=== PATIENT | male | born 1955 | race Caucasian/White ===

== ENCOUNTER 2017-12-30 09:04 | Emergency (ER) | payer OTHER ==
--- OUTSIDE RECORDS SUMMARY | 2017-12-30 09:06 | XMS REPORT | Clinical Summary ---
:1955 Author Organization [facility] Address [address] [place] [address] Phone Care Team Providers Name Role Phone Unavailable Primary Care Provider Unavailable Allergies No Known Allergies Current Medications Prescription Sig. Disp. Refills Start Date End Date Status prasugrel (EFFIENT) Take 10 mg by Active 10 mg Tab tablet mouth daily. aspirin 81 MG EC Take 81 mg by Active tablet mouth daily. simvastatin (ZOCOR) Take 40 mg by Active 40 MG tablet mouth nightly. nitroglycerin Place 1 spray Active (NITROLINGUAL) 0.4 under the mg/dose spray tongue every 5 (five) minutes as needed for Chest pain. diclofenac Take 75 mg by 05/02/2017 Active (VOLTAREN) 75 MG EC mouth daily . tablet fluticasone-vilanter Inhale 1 puff Active ol (BREO ELLIPTA) by mouth via 100-25 mcg/dose DsDv inhaler daily. furosemide (LASIX) Take 1 tablet 30 tablet 1 09/02/2017 Active 40 MG tablet (40 mg total) 9 by mouth daily. metoprolol Take 1 tablet 30 tablet 1 09/01/2017 Active (TOPROL-XL) 100 MG (100 mg total) 24 hr tablet by mouth daily. NIFEdipine (ADALAT Take 1 tablet 30 tablet 1 09/02/2017 Active CC) 30 MG 24 hr (30 mg total) tablet by mouth daily. albuterol HFA Inhale 2 puffs 1 Inhaler 0 09/01/2017 Active (VENTOLIN HFA) 90 by mouth via mcg/actuation inhaler every 6 inhaler (six) hours as needed for Wheezing or Shortness of Breath. cyanocobalamin Take 50 mcg by Discontinued (VITAMIN B-12) 50 mouth daily. 8 mcg tablet albuterol, refill, Inhale 1 puff Discontinued 90 mcg/actuation by mouth via 8 Aero inhaler as needed. metoprolol Take 0.5 30 tablet 1 06/12/2014 Discontinued (TOPROL-XL) 100 MG tablets (50 mg 8 24 hr tablet total) by mouth daily. nicotine (NICODERM Place 1 patch 28 patch 0 09/01/2017 CQ) 21 mg/24 hr onto the skin 8 patch daily for 30 days. predniSONE Take 60 mg PO 20 tablet 0 09/01/2017 Discontinued (DELTASONE) 20 MG daily for 3 8 tablet days, then take 40mg PO daily for 3 days, then take 20 mg PO daily for 3 days, then take 10 mg PO daily for 3 day. ipratropium Inhale 2 puffs 1 Inhaler 0 09/01/2017 Discontinued (ATROVENT HFA) 17 by mouth via 8 mcg/actuation inhaler every 6 inhaler (six) hours as needed for Wheezing (shortness of breath). Active Problems Problem Noted Date Peripheral vascular disease, unspecified ([facility]) 10/18/2017 Left leg claudication ([facility]) 10/18/2017 [place] (dyspnea on exertion) 08/29/2017 PVD (peripheral vascular disease) with claudication ([facility]) 06/11/2014 Depressive disorder, not elsewhere classified 06/10/2014 Hemorrhage of gastrointestinal tract, unspecified 06/10/2014 Old myocardial infarction 06/10/2014 Obstructive sleep apnea (adult) (pediatric) 06/10/2014 Right bundle branch block 06/10/2014 Morbid obesity (HCC) 06/10/2014 Essential hypertension 06/10/2014 Other chronic nonalcoholic liver disease 06/10/2014 COPD (chronic obstructive pulmonary disease) ([facility]) 06/10/2014 CAD (coronary artery disease) 05/16/2014 Encounters Date Type Specialty Care Team Description 10/18/2017 - Hospital Encounter Cardiology Slick Brito 10/19/2017 MD Serge 10/18/2017 Procedure Pass 10/18/2017 Surgery Slick Brito PERIPHERAL ANGIOS / MD Serge AORTOGRAM 10/16/2017 Anesthesia Event Maurilio Kinsey MD 09/08/2017 Outside Orders Central Scheduling Brad De Leon MD 08/29/2017 - Hospital Encounter Cardiology TELMA Flores (dyspnea on 09/01/2017 yusuf Echevarria) (Primary MD Dx);COPD exacerbation ([facility]);Right bundle branch block;Morbid obesity ([facility]);Coronary artery disease involving ass[place] si[place] coronary artery of assinibo[place] and sioux heart without angina pectoris;Essential hypertension;PVD (peripheral vascular disease) ([facility]) 08/29/2017 Orders Only General Internal Medicine 07/28/2017 Outside Orders Leroy Bee, GUANAKO (obstructive SENIOR SHAREPOINT DEVELOPER, CHILI MAKER sleep apnea) (Primary Dx) after 12/29/2016 Family History Medical History Relation Name Comments Hypertension Brother Cancer Father prostate Diabetes Father Coronary artery disease Mother Heart disease Mother Hyperlipidemia Mother Hypertension Mother Peripheral vascular disease Mother Stroke Mother Cancer Sister breast Relation Name Status Comments Brother Alive Father Mother Sister Alive Social History Tobacco Use Types Packs/Day Years Used Date Former Smoker Cigarettes 0 40 Smokeless Tobacco: Never Used Comments: quit 4 weeks Alcohol Use Drinks/Week oz/Week Comments No Sex Assigned at Date Recorded Not on file Last Filed Vital Signs Vital Sign Reading Time Taken Blood Pressure 111/63 10/19/2017 7:16 AM CDT Pulse 89 10/19/2017 8:37 AM CDT Temperature 36.5 C (97.7 F) 10/19/2017 7:16 AM CDT Respiratory Rate 12 10/19/2017 8:37 AM CDT Oxygen Saturation 97% 10/19/2017 8:37 AM CDT Inhaled Oxygen Concentration - - Weight 156.9 kg (345 lb 12.8 oz) 10/19/2017 7:16 AM CDT Height 177.8 cm (5' 10") 10/18/2017 10:00 AM CDT Body Mass Index 49.62 10/19/2017 7:16 AM CDT Plan of Treatment Health Maintenance Due Date Last Done Comments INFLUENZA VACCINE 12/05/2017 Implants Implanted Type Area Assistant Controller Device Expiration Date Model / Identifier Serial / Lot Supera Peripheral Stent System NEGRO VASCULAR 09/04/2015 [id number] / Implanted: Qty: 1 on 06/11/2014 DEVICE / [id number] Procedures Procedure Name Priority Date/Time Associated Diagnosis Comments PERIPHERAL ANGIOS / 10/18/2017 2:15 PM PVD (peripheral AORTOGRAM CDT vascular disease) (HCC) Case Notes POP6 BLE PERIPHERAL ANGIOS after 12/29/2016 Results VASCULAR DIAGRAM -SCAN (10/21/2017 2:00 PM)RHYTHM STRIP - SCAN (10/21/2017 2: 00 PM)Only the most recent of2 resultswithin the time period is included.EKG- SCANNED (10/21/2017 2:00 PM)CARDIAC CATH REPORT - SCAN (10/21/2017 2:00 PM) CBC (Hemogram only) (10/19/2017 3:49 AM) Component Value Ref Range WBC 11.7 (H) 3.5 - 10.5 K/L RBC 3.77 (L) 4.63 - 6.08 M/L Hemoglobin 12.7 (L) 13.7 - 17.5 GM/DL Hematocrit 37.2 (L) 40.1 - 51.0 % MCV 98.7 (H) 79.0 - 92.2 fL MCH 33.7 (H) 25.7 - 32.2 pg MCHC 34.1 32.3 - 36.5 GM/DL RDW 16.1 (H) 11.6 - 14.4 % Platelets 190 150 - 450 K/CU MM MPV 10.9 9.4 - 12.4 fL nRBC 0 0 - 0 /100 WBC Specimen Performing Laboratory Blood [address] [address] Basic metabolic panel (10/19/2017 3:49 AM)Only the most recent of5 resultswithin the time period is included. Component Value Ref Range Sodium 137 136 - 145 meq/L Potassium 5.0 3.5 - 5.1 meq/L Chloride 105 98 - 107 meq/L CO2 26 22 - 29 meq/L BUN 11 7 - 21 mg/dL Creatinine 0.73 0.57 - 1.25 mg/dL Glucose 109 (H) 70 - 105 mg/dL Calcium 8.9 8.4 - 10.2 mg/dL EGFR 110Comment: ESTIMATED GFR IS NOT ACCURATE mL/min/1.73 sq m CREATININE CLEARANCE IN PREDICTING GLOMERULAR FILTRATION RATE. ESTIMATED GFR IS NOT APPLICABLE FOR DIALYSIS PATIENTS. Specimen Performing Laboratory Blood [address] [address] POC ACTIVATED CLOTTING TIME (10/18/2017 4:46 PM)Only the most recent of2 resultswithin the time period is included. Component Value Ref Range Activated Clotting Time 153Comment: TESTED AT [facility] [address] [place] [address] sec [id number] Specimen Performing Laboratory Blood [address] [address] ECHOCARDIOGRAM REPORT - SCAN (09/01/2017 8:21 AM)PERIPHERAL VASCULAR REPORT - SCAN (09/01/2017 8:20 AM)Magnesium (09/01/2017 4:31 AM)Only the most recent of4 resultswithin the time period is included. Component Value Ref Range Magnesium 2.4 1.6 - 2.6 mg/dL Specimen Performing Laboratory Blood - Arm, Right [address] [address] Stress Echo With Tracing (08/31/2017 1:16 PM) Component Value Ref Range Ejection Fraction Est EF of >70% Specimen Performing Laboratory SLE ECHO HEARTLAB [facility] CPACS Narrative Stress Echocardiography Report Demographics Patient NameENRIQUE ACEVEDO Date of Study08/31/2017 RHONDA Male Visit [id number] Room Number 1009 Number Date of 1955Referring Mark Colindres Physician Age 62 year(s)Humble Walter RDCS Interpreting Physician BrodieMD FellowMORIS Martinez Procedure Type of Study Stress procedure:STRESS(TMT)ECHO W/TMT TRACING (Routine) Indications:Ischemic heart disease. Clinical History HGB 13.7 HCT 39.0 % CAD, COPD, [place], HLD, HTN, HI, Morbid obesity, PVD, RBBB, SOB, Tobacco abuse, GUANAKO s/p Coronary stent (2005, 2011) Contrast Medium: Definity. Amount - 2 ml Height: 70 inches Weight: 156.04 kg (344 lbs) BSA: 2.63 m^2 BMI: 49.36 kg/m^2 HR: 95 bpm BP: 133/75 mmHg Rest ECG Sinus rhythm. Incomplete RBBB. Standing HR:99 bpmStanding BP:133/75 mmHg Stress Stress Type: Pharmacologic Peak HR: 146 bpmHR Response: Normal Peak BP: 141/47 mmHgBP Response: Normal Predicted HR: 160 bpm HR BP Product: 15942 % of predicted HR: 91 Max Infusion : 20 mcg/kg/min Test Duration: 16:21 min Reason for Termination: Target heart rate Results Global LVEF (rest): Normal (LVEF >50%) Global LVEF (stress): Hyperkinetic (LVEF >70%) ECG No significant ST changes. Arrhythmias No significant rhythm abnormality during stress or recovery. Symptoms No symptoms during stress test. Stress Protocol: Pharmacologic - Dobutamine +--------+------+------+ +------+-----+--------+--+--------+----+----- -+ !Stage # !Time!Dosage!Other !Dosage!Heart!Blood !CP!Pain!Pain!Pain! !!!!Medication!!Rate !Pressure!!Location!Type!Action! +--------+------+------+ +------+-----+--------+--+--------+----+----- -+ !1.0 !3.450 !10.00 !!!121!141/47!!! ! ! +--------+------+------+ +------+-----+--------+--+--------+----+----- -+ !2.0 !3.033 !20.00 !!!146!!! ! !! +--------+------+------+ +------+-----+--------+--+--------+----+----- -+ !Recovery!16.350!0.00!!!98 !132/75!!!!! +--------+------+------+ +------+-----+--------+--+--------+----+----- -+ Summary Indications: Ischemic heart disease symptoms Procedure done: Dobutamine stress echocardiogram. Complications: None Medications: Dobutamine infusion with peak rate of 20 mg/kg/min. ECG: The resting heart rate was 95 bpm. Resting electrocardiogram showed sinus rhythm with incomplete RBBB and no ischemic ECG changes. The heart rate increased to 146 bpm which corresponded to 91% maximum predicted heart rate. There were no ischemic ECG changes noted. There were no arrhythmias noted. The blood pressure at baseline was 133/75 mm Hg and vikram to 141/47 at peak stress. The patient did not develop any significant symptoms. Echocardiogram: Resting echocardiogram showed normal LV systolic function, estimated LVEF of 55%. Normal wall motion. At peak stress, the echocardiogram showed appropriate LV augmentation. Estimated LVEF of >70%. Normal wall motion. Conclusion: Stress was negative for symptoms, ischemic ECG and echocardiogram changes at a diagnostic level of stress. Signature Procedure Note Interface, External Ris In - 08/31/2017 9:37 PM CDT Stress Echocardiography Report Demographics Patient Name ENRIQUE ACEVEDO Date of Study 08/31/2017 RHONDA Gender Male Visit Number [id number] Race Room Number 1009 Number Date of 1955 Referring Mark Colindres Physician Age 62 year(s) Knife Setter Assembler Lashay Walter INESSA Interpreting Kateryna Schaefer, Physician MD Fellow MORIS Martinez Procedure Type of Study Stress procedure:STRESS(TMT)ECHO W/TMT TRACING (Routine) Indications:Ischemic heart disease. Clinical History HGB 13.7 HCT 39.0 % CAD, COPD, [place], HLD, HTN, HI, Morbid obesity, PVD, RBBB, SOB, Tobacco abuse, GUANAKO s/p Coronary stent (2005, 2011) Contrast Medium: Definity. Amount - 2 ml Height: 70 inches Weight: 156.04 kg (344 lbs) BSA: 2.63 m^2 BMI: 49.36 kg/m^2 HR: 95 bpm BP: 133/75 mmHg Rest ECG Sinus rhythm. Incomplete RBBB. Standing HR:99 bpmStanding BP:133/75 mmHg Stress Stress Type: Pharmacologic Peak HR: 146 bpm HR Response: Normal Peak BP: 141/47 mmHg BP Response: Normal Predicted HR: 160 bpm HR BP Product: 66627 % of predicted HR: 91 Max Infusion: 20 mcg/kg/min Test Duration: 16:21 min Reason for Termination: Target heart rate Results Global LVEF (rest): Normal (LVEF >50%) Global LVEF (stress): Hyperkinetic (LVEF >70%) ECG No significant ST changes. Arrhythmias No significant rhythm abnormality during stress or recovery. Symptoms No symptoms during stress test. Stress Protocol: Pharmacologic - Dobutamine +--------+------+------+ +------+-----+--------+--+--------+----+----- -+ !Stage # !Time !Dosage!Other !Dosage!Heart!Blood !CP!Pain !Pain!Pain ! ! ! ! !Medication! !Rate !Pressure! !Location!Type! Action! +--------+------+------+ +------+-----+--------+--+--------+----+----- -+ !1.0 !3.450 !10.00 ! ! !121 !141/47 ! ! ! ! ! +--------+------+------+ +------+-----+--------+--+--------+----+----- -+ !2.0 !3.033 !20.00 ! ! !146 ! ! ! ! ! ! +--------+------+------+ +------+-----+--------+--+--------+----+----- -+ !Recovery!16.350!0.00 ! ! !98 !132/75 ! ! ! ! ! +--------+------+------+ +------+-----+--------+--+--------+----+----- -+ Summary Indications: Ischemic heart disease symptoms Procedure done: Dobutamine stress echocardiogram. Complications: None Medications: Dobutamine infusion with peak rate of 20 mg/kg/min. ECG: The resting heart rate was 95 bpm. Resting electrocardiogram showed sinus rhythm with incomplete RBBB and no ischemic ECG changes. The heart rate increased to 146 bpm which corresponded to 91% maximum predicted heart rate. There were no ischemic ECG changes noted. There were no arrhythmias noted. The blood pressure at baseline was 133/75 mm Hg and vikram to 141/47 at peak stress. The patient did not develop any significant symptoms. Echocardiogram: Resting echocardiogram showed normal LV systolic function, estimated LVEF of 55%. Normal wall motion. At peak stress, the echocardiogram showed appropriate LV augmentation. Estimated LVEF of >70%. Normal wall motion. Conclusion: Stress was negative for symptoms, ischemic ECG and echocardiogram changes at a diagnostic level of stress. Signature 2D Echo W/Doppler(CW/PW/Color) (08/31/2017 12:42 PM) Component Value Ref Range Ejection Fraction Specimen Performing Laboratory [facility] Narrative Transthoracic Echocardiography Report (TTE) Demographics Patient NameENRIQUE ACEVEDO Date of Study08/31/2017 RHONDA Male Visit [id number] Room Number 1009 Number Date of 1955Referring Mark Colindres Physician Age 62 year(s)Humble Walter INESSA Interpreting Physician BrodieMD FellowMORIS Martinez Procedure Type of Study TTE procedure:2DECHO W DOPPLER(CW/PW/COLOR) (Routine) Indications:Shortness of breath. Clinical History HGB 13.7 HCT 39.0 % CAD, COPD, [place], HLD, HTN, HI, Morbid obesity, PVD, RBBB, SOB, Tobacco abuse, GUANAKO s/p Coronary stent (2005, 2011) Contrast Medium: Definity. Amount - 2 ml Height: 70 inches Weight: 156.04 kg (344 lbs) BSA: 2.63 m^2 BMI: 49.36 kg/m^2 HR: 94 bpm BP: 133/75 mmHg Summary 1. Mild concentric LV hypertrophy. All of the LV segments contract normally . 2. LVEF by Her's method of disk assessment is normal (>60%) . 3. Grade 1 diastolic dysfunction (impaired relaxation and low-normal LA pressure). Previous Study No prior exam available for comparison. Signature Findings Technical Quality: Technically difficult exam. Left Ventricle The left ventricle is chamber size (by vol index) is normal (male - LVED vol - 34-74ml/m2). Mild concentric LV hypertrophy. All of the LV segments contract normally . Global LV systolic function normal . LVEF by Her's method of disk assessment is normal (>60%) . Grade 1 diastolic dysfunction (impaired relaxation and low-normal LA pressure). Left AtriumLA size is mildly enlarged (35-41 ml/m2) . Right VentricleThe right ventricular chamber size and systolic function are within normal limits. Right Atrium RA size is normal. Aortic Valve Normal AoV structure and function. Mitral Valve Normal MV structure and function. Tricuspid ValveNo evidence of tricuspid regurgitation. Unable to estimate peak systolic PA pressure; inadequate TR velocity signal. Pulmonic Valve PV is not well visualized; function appears normal by Doppler visualized. AortaAortic root size (SInus of Valsalva diameter) is normal . PericardiumNo significant pericardial effusion is visualized. IVC/SVC/PA/PV/PleuralThe estimated RA pressure by IVC dynamics 5-10mmHg . Chambers/Structures Left Atrium LA Volume: 88.48 ml LA Area: 27.11 cm^ 2 LA Vol. Index: 34 ml/m^2 Left Ventricle LVIDd: 4.47 cm LVIDs: 1.95 cm LV Septum Diastolic: 1.32 cm LV PW Diastolic: 1.25 cmLV FS: 56.4 % LVEDV Her's:104.54 ml LVESV Her's:25.16 mlLVEDVI: 40 ml/ m^2 LVEF Her's: 75.9 %LVESVI: 10 ml/m^2 LVOT Diameter: 2.52 cm Doppler/Quantitative Measurements Mitral Valve MV Peak E-Wave: 1.34 m/sPeak Gradient: 7.18 mmHg MV Sean. Peak: Tissue Doppler E' Lateral Velocity: 0.08 m/s E/E': 17.11 Aortic Valve Peak Velocity: 1.48 m/s Mean Velocity: 1.04 m/s Peak Gradient: 8.81 mmHgMean Gradient: 4.9 mmHg AV Area (continuity): 4.92 cm^2 AV VTI: 32.34 cm AV DVI: 0.99 LVOT Peak Velocity: 1.45 m/s Peak Gradient: 8.4 mmHg Mean Velocity: 0.99 m/s Mean Gradient: 4.51 mmHg LVOT Diameter: 2.52 cmLVOT VTI: 31.95 cm LVOT Area: 4.99 cm^2LVOT SV:159.27 ml LVOT CO: 14.97 l/minLVOT CI: 5.69 l/min/m^2 Procedure Note Interface, External Ris In - 08/31/2017 9:39 PM CDT Transthoracic Echocardiography Report (TTE) Demographics Patient Name ENRIQUE ACEVEDO Date of Study 08/31/2017 RHONDA Gender Male Visit Number [id number] Race Room Number 1009 Number Date of 1955 Referring Mark Colindres Physician Age 62 year(s) Knife Setter Assembler Lashay Walter, JOE Interpreting Kateryna cShaefer, Physician Fellow MORIS Martinez Procedure Type of Study TTE procedure:2DECHO W DOPPLER(CW/PW/COLOR) (Routine) Indications:Shortness of breath. Clinical History HGB 13.7 HCT 39.0 % CAD, COPD, [place], HLD, HTN, HI, Morbid obesity, PVD, RBBB, SOB, Tobacco abuse, GUANAKO s/p Coronary stent (2005, 2011) Contrast Medium: Definity. Amount - 2 ml Height: 70 inches Weight: 156.04 kg (344 lbs) BSA: 2.63 m^2 BMI: 49.36 kg/m^2 HR: 94 bpm BP: 133/75 mmHg Summary 1. Mild concentric LV hypertrophy. All of the LV segments contract normally . 2. LVEF by Her's method of disk assessment is normal (>60%) . 3. Grade 1 diastolic dysfunction (impaired relaxation and low-normal LA pressure). Previous Study No prior exam available for comparison. Signature Findings Technical Quality: Technically difficult exam. Left Ventricle The left ventricle is chamber size (by vol index) is normal (male - LVED vol - 34-74ml/m2). Mild concentric LV hypertrophy. All of the LV segments contract normally . Global LV systolic function normal . LVEF by Her's method of disk assessment is normal (>60%) . Grade 1 diastolic dysfunction (impaired relaxation and low-normal LA pressure). Left Atrium LA size is mildly enlarged (35-41 ml/m2) . Right Ventricle The right ventricular chamber size and systolic function are within normal limits. Right Atrium RA size is normal. Aortic Valve Normal AoV structure and function. Mitral Valve Normal MV structure and function. Tricuspid Valve No evidence of tricuspid regurgitation. Unable to estimate peak systolic PA pressure; inadequate TR velocity signal. Pulmonic Valve PV is not well visualized; function appears normal by Doppler visualized. Aorta Aortic root size (SInus of Valsalva diameter) is normal . Pericardium No significant pericardial effusion is visualized. IVC/SVC/PA/PV/Pleural The estimated RA pressure by IVC dynamics 5-10mmHg . Chambers/Structures Left Atrium LA Volume: 88.48 ml LA Area: 27.11 cm^2 LA Vol. Index: 34 ml/m^2 Left Ventricle LVIDd: 4.47 cm LVIDs: 1.95 cm LV Septum Diastolic: 1.32 cm LV PW Diastolic: 1.25 cm LV FS: 56.4 % LVEDV Her's:104.54 ml LVESV Her's:25.16 ml LVEDVI: 40 ml/m^2 LVEF Her's: 75.9 % LVESVI: 10 ml/m^2 LVOT Diameter: 2.52 cm Doppler/Quantitative Measurements Mitral Valve MV Peak E-Wave: 1.34 m/s Peak Gradient: 7.18 mmHg MV Sean. Peak: Tissue Doppler E' Lateral Velocity: 0.08 m/s E/E': 17.11 Aortic Valve Peak Velocity: 1.48 m/s Mean Velocity: 1.04 m/s Peak Gradient: 8.81 mmHg Mean Gradient: 4.9 mmHg AV Area (continuity): 4.92 cm^2 AV VTI: 32.34 cm AV DVI: 0.99 LVOT Peak Velocity: 1.45 m/s Peak Gradient: 8.4 mmHg Mean Velocity: 0.99 m/s Mean Gradient: 4.51 mmHg LVOT Diameter: 2.52 cm LVOT VTI: 31.95 cm LVOT Area: 4.99 cm^2 LVOT SV:159.27 ml LVOT CO: 14.97 l/min LVOT CI: 5.69 l/min/m^2 CBC with platelet count + automated diff (08/31/2017 4:39 AM)Only the most recent of3 resultswithin the time period is included. Component Value Ref Range WBC 20.5 (H) 3.5 - 10.5 K/L RBC 4.06 (L) 4.63 - 6.08 M/L Hemoglobin 13.7 13.7 - 17.5 GM/DL Hematocrit 39.0 (L) 40.1 - 51.0 % MCV 96.1 (H) 79.0 - 92.2 fL MCH 33.7 (H) 25.7 - 32.2 pg MCHC 35.1 32.3 - 36.5 GM/DL RDW 15.8 (H) 11.6 - 14.4 % Platelets 267 150 - 450 K/CU MM MPV 11.0 9.4 - 12.4 fL nRBC 0 0 - 0 /100 WBC % Neutros 84 % % Lymphs 11 % % Monos 4 % % Eos 0 % % Baso 0 % # Neutros 17.28 (H) 1.78 - 5.38 K/L # Lymphs 2.32 1.32 - 3.57 K/L # Monos 0.71 0.30 - 0.82 K/L # Eos 0.00 (L) 0.04 - 0.54 K/L # Baso 0.03 0.01 - 0.08 K/L Immature Granulocytes-Relative 1 0 - 1 % Specimen Performing Laboratory Blood - Arm, Left [address] [address] CBC with platelet count + automated diff (08/31/2017 4:39 AM)Only the most recent of3 resultswithin the time period is included. Specimen Performing Laboratory Blood Narrative The following orders were created for panel order CBC with platelet count + automated diff. Procedure Abnormality Status --------- ------ CBC with platelet count ...[[id number]]AbnormalFinal result Please view results for these tests on the individual orders. CT brain without IV contrast (08/30/2017 8:58 PM) Specimen Performing Laboratory SocialGO RIS Narrative FINAL REPORT CT head without contrast 08/30/2017 8:59 PM CLINICAL HISTORY: Focal neuro deficit, new, fixed or worsening, >6 hours LEFT FACIAL/HAND NUMBNESS TECHNIQUE: Axial noncontrast CT images through the head were obtained. This examination was performed according to our departmental dose optimization program, which includes automated exposure control, adjustment of the mA and/or kV according to patient size, and/or use of iterated reconstruction technique. COMPARISON: None available FINDINGS: There is no hemorrhage, extra-axial collection, mass, hydrocephalus, or midline shift. There are rare chronic-appearing microvascular changes in the supratentorial white matter. There is atherosclerotic calcification of the intracranial arterial vasculature. There is generalized parenchymal volume loss. The paranasal sinuses and mastoid air cells are well aerated, save for a retention cyst in the right maxillary sinus. The skull is intact. IMPRESSION: No intracranial hemorrhage or mass effect. If concern for acute pathology persists, further evaluation with MRI is recommended. Signed: Morro Clifton MD Report Verified Date/Time:08/30/2017 21:01:19 Reading Location: [facility] Radiology Reading Room Procedure Note Interface, External Ris In - 08/30/2017 9:03 PM CDT FINAL REPORT CT head without contrast 08/30/2017 8:59 PM CLINICAL HISTORY: Focal neuro deficit, new, fixed or worsening, >6 hours LEFT FACIAL/HAND NUMBNESS TECHNIQUE: Axial noncontrast CT images through the head were obtained. This examination was performed according to our departmental dose optimization program, which includes automated exposure control, adjustment of the mA and/or kV according to patient size, and/or use of iterated reconstruction technique. COMPARISON: None available FINDINGS: There is no hemorrhage, extra-axial collection, mass, hydrocephalus, or midline shift. There are rare chronic-appearing microvascular changes in the supratentorial white matter. There is atherosclerotic calcification of the intracranial arterial vasculature. There is generalized parenchymal volume loss. The paranasal sinuses and mastoid air cells are well aerated, save for a retention cyst in the right maxillary sinus. The skull is intact. IMPRESSION: No intracranial hemorrhage or mass effect. If concern for acute pathology persists, further evaluation with MRI is recommended. Signed: Morro Clifton MD Report Verified Date/Time: 08/30/2017 21:01:19 Reading Location: [facility] Radiology Reading Room Hemoglobin A1c (08/30/2017 5:48 AM) Component Value Ref Range Hemoglobin A1C 5.8 4.3 - 6.1 % Specimen Performing Laboratory Blood - Arm, [place] [address] Hepatic function panel (08/30/2017 5:48 AM) Component Value Ref Range Protein, Total 6.8 6.0 - 8.3 gm/dL Albumin 3.9 3.5 - 5.0 g/dL Total Bilirubin 0.4 0.2 - 1.2 mg/dL Bilirubin, Direct 0.2 0.1 - 0.5 mg/dL Alkaline Phosphatase 84 40 - 150 U/L AST 15 5 - 34 U/L ALT 25 6 - 55 U/L Specimen Performing Laboratory Blood - Arm, [address] [address] Lipid panel (08/30/2017 5:48 AM) Component Value Ref Range Triglycerides 64 mg/dL Cholesterol 145 mg/dL HDL 43 mg/dL LDL Calculated 89 mg/dL Specimen Performing Laboratory Blood - Arm, [address] [address] Narrative Triglyceride Reference Range: Low Risk <150 [id number] High Risk 200-499 Very High Risk>=500 Cholesterol Reference Range: Low Risk <200 [id number] High Risk>240 HDL Cholesterol Reference Range: Low Risk >=60 High Risk <40 LDL Cholesterol Reference Range: Optimal<100 Near [id number] [id number] Very High >=190 Troponin I (08/29/2017 11:39 PM)Only the most recent of2 resultswithin the time period is included. Component Value Ref Range Troponin I <0.01 0.00 - 0.03 ng/mL Specimen Performing Laboratory Blood - Arm, [address] [address] Narrative Troponin I (TnI) levels must be interpreted in the context of the presenting symptoms and the clinical findings. Elevated TnI levels indicate myocardial damage, but are not specific for ischemic heart disease. Elevated TnI levels are seen in patients with other cardiac conditions (including myocarditis and congestive heart failure), and slight TnI elevations occur in patients with other conditions, including sepsis, renal failure, acidosis, acute neurological disease, and persistent tachyarrhythmia. ED ECG Interpretation (08/29/2017 10:15 PM) Narrative Pati Granger MD 08/29/2017 10:15 PM ECG/EKG Interpretation Date/Time: 08/29/2017 4:24 PM Performed by: PATI GRANGER. Authorized by: PATI GRANGER The ECG was interpreted by ED physician. This ECG was not compared with previous ECG(s).The ECG is interpreted as sinus rhythm. Rate is normal rate. Abnormal conduction noted: right bundle branch block. ST segments normal. T waves normal. [place] is normal. Other findings: no other findings. Clinical Impression: non-specific ECG and abnormal ECG CT chest with IV contrast (08/29/2017 8:47 PM) Specimen Performing Laboratory GE RIS Narrative FINAL REPORT EXAM: CT of the chest, with contrast, PE protocol CLINICAL HISTORY:left hilar mass, smoker, [place] TECHNIQUE: Chest CT was performed with intravenous contrast utilizing a PE protocol. 2-D and 3-D reformatted images were obtained. This exam was performed according to our departmental dose optimization program which includes automated exposure control, adjustment of the mA and/or kV according to patient's size and/or use of iterative reconstructive technique. COMPARISON:Chest CT 04/15/2011. . FINDINGS: LOWER NECK: Within normal limits. AIRWAYS AND LUNGS: Patent central tracheobronchial tree. Right lower lobe calcified granuloma. Mild bibasilar subsegmental and discoid atelectasis. Elevated right hemidiaphragm. PLEURA: No pleural effusion or pneumothorax. VESSELS: Atheromatous changes of the aorta and branches. No thoracic aortic aneurysm. HEART: Normal heart size. No pericardial effusion. JASON AND MEDIASTINUM: Within normal limits. VISUALIZED UPPER ABDOMEN: Punctate nonobstructing right upper pole renal stone versus vascular calcification. Calcified splenic granulomas. Subcentimeter hypodensity in the hepatic dome too small to characterize. SOFT TISSUES: Within normal limits. BONES: Multilevel degenerative changes of the visualized spine. Healed fracture of the left lateral sixth rib. IMPRESSION: No thoracic mass or lymphadenopathy. Elevated right hemidiaphragm. Mild bibasilar subsegmental and discoid atelectasis. Signed: Demetrio Andrade MD Report Verified Date/Time:08/29/2017 21:13:13 Reading Location: [address] Transitional Reading Room Procedure Note Interface, External Ris In - 08/29/2017 9:15 PM CDT FINAL REPORT EXAM: CT of the chest, with contrast, PE protocol CLINICAL HISTORY: left hilar mass, smoker, [place] TECHNIQUE: Chest CT was performed with intravenous contrast utilizing a PE protocol. 2-D and 3-D reformatted images were obtained. This exam was performed according to our departmental dose optimization program which includes automated exposure control, adjustment of the mA and/or kV according to patient's size and/or use of iterative reconstructive technique. COMPARISON: Chest CT 04/15/2011. . FINDINGS: LOWER NECK: Within normal limits. AIRWAYS AND LUNGS: Patent central tracheobronchial tree. Right lower lobe calcified granuloma. Mild bibasilar subsegmental and discoid atelectasis. Elevated right hemidiaphragm. PLEURA: No pleural effusion or pneumothorax. VESSELS: Atheromatous changes of the aorta and branches. No thoracic aortic aneurysm. HEART: Normal heart size. No pericardial effusion. JASON AND MEDIASTINUM: Within normal limits. VISUALIZED UPPER ABDOMEN: Punctate nonobstructing right upper pole renal stone versus vascular calcification. Calcified splenic granulomas. Subcentimeter hypodensity in the hepatic dome too small to characterize. SOFT TISSUES: Within normal limits. BONES: Multilevel degenerative changes of the visualized spine. Healed fracture of the left lateral sixth rib. IMPRESSION: No thoracic mass or lymphadenopathy. Elevated right hemidiaphragm. Mild bibasilar subsegmental and discoid atelectasis. Signed: Demetrio Andrade MD Report Verified Date/Time: 08/29/2017 21:13:13 Reading Location: [address] Transitional Reading Room /aPTT (08/29/2017 3:12 PM) Component Value Ref Range Protime 14.0 11.7 - 14.7 seconds INR 1.1 <=5.9 PTT 30.4 22.5 - 36.0 seconds Specimen Performing Laboratory Blood - Arm, Right [address] [address] Narrative RECOMMENDED COUMADIN/WARFARIN INR THERAPY RANGES STANDARD DOSE: 2.0 - 3.0 Includes: PROPHYLAXIS for venous thrombosis, systemic embolization; TREATMENT for venous thrombosis and/or pulmonary embolus. HIGH RISK: Target INR is 2.5-3.5 for patients with mechanical heart valves. B-type Natriuretic Factor (BNP) (08/29/2017 3:01 PM) Component Value Ref Range BNP 18 0 - 100 pg/mL Specimen Performing Laboratory Blood [address] [address] Creatine Kinase (CK), Total and MB (not available at [facility] [place]) (2017 3:01 PM) Component Value Ref Range Total CK 72 29 - 200 U/L CK-MB 1.4 0.0 - 6.6 ng/mL MB Relative Index 1.9 % Specimen Performing Laboratory Blood [address] [address] Narrative CK-MB Reference Range: <6.7Normal 6.7-10.0Borderline >10.0 Abnormal Urinalysis w/ Microscopic (08/29/2017 2:56 PM) Component Value Ref Range Color, UA Yellow Clarity, UA Clear Specific [place], UA 1.012 1.001 - 1.035 pH, UA 6.5 5.0 - 8.0 Protein, UA Negative Negative Glucose, UA Negative Negative Ketones, UA Negative Negative Bilirubin, UA Negative Negative Blood, UA Negative Negative Nitrite, UA Negative Negative Leukocytes, UA Negative Negative Urobilinogen, UA 0.2 0.2 - 1.0 mg/dL RBC, UA 1 /HPF WBC, UA <1 /HPF Mucus Rare Specimen Source Urine, Clean Catch Specimen Performing Laboratory Urine - Urine, Clean Catch [address] [address] XR chest 1 view portable / bedside (08/29/2017 2:30 PM) Specimen Performing Laboratory GE RIS Narrative FINAL REPORT INDICATION: SHORTNESS OF BREATH DIZZINESS NUMBNESS COMPARISON: May 09, 2014 TECHNIQUE: Chest radiograph, single view, portable technique. FINDINGS / IMPRESSION: There are diffuse faint interstitial opacities, suspicious for interstitial edema or atypical pneumonia. There is a questionable left hilar mass. Moderate elevation the right hemidiaphragm is unchanged. No pneumothorax. Osseous structures unremarkable. Chest CT with intravenous contrast is recommended for further evaluation of the left hilum. Signed: Adonay Bird MD Report Verified Date/Time:08/29/2017 15:03:26 Reading Location: [facility] Mammo Reading Room Procedure Note Interface, External Ris In - 08/29/2017 3:05 PM CDT FINAL REPORT INDICATION: SHORTNESS OF BREATH DIZZINESS NUMBNESS COMPARISON: May 09, 2014 TECHNIQUE: Chest radiograph, single view, portable technique. FINDINGS / IMPRESSION: There are diffuse faint interstitial opacities, suspicious for interstitial edema or atypical pneumonia. There is a questionable left hilar mass. Moderate elevation the right hemidiaphragm is unchanged. No pneumothorax. Osseous structures unremarkable. Chest CT with intravenous contrast is recommended for further evaluation of the left hilum. Signed: Adonay Bird MD Report Verified Date/Time: 08/29/2017 15:03:26 Reading Location: [facility] Mammo Reading Room 12 lead (08/29/2017 2:18 PM) Specimen Performing Laboratory [employer] [facility] Narrative Ventricular Rate 81 BPM Atrial Rate 81 BPM P-R Interval 170 ms QRS Duration 142 ms Q-T Interval 404 ms QTC Calculation(Bazett) 469 ms P [place] 75 degrees R [place] 105 degrees T [place] 45 degrees Normal sinus rhythm Right bundle branch block Left posterior fascicular block Prolonged QT Abnormal ECG When compared with ECG of 16-MAY-2014 08:39, No significant change was found Confirmed by MD COTA YOCHAI ([id number]) on 08/29/2017 7:52:47 PM Procedure Note Interface, External Ris In - 08/29/2017 7:52 PM CDT Ventricular Rate 81 BPM Atrial Rate 81 BPM P-R Interval 170 ms QRS Duration 142 ms Q-T Interval 404 ms QTC Calculation(Bazett) 469 ms P [place] 75 degrees R [place] 105 degrees T [place] 45 degrees Normal sinus rhythm Right bundle branch block Left posterior fascicular block Prolonged QT Abnormal ECG When compared with ECG of 16-MAY-2014 08:39, No significant change was found Confirmed by MD COTA YOCHAI ([id number]) on 08/29/2017 7:52:47 PM after 12/29/2016
--- OUTSIDE RECORDS SUMMARY | 2017-12-30 09:06 | XMS REPORT | Clinical Summary ---
:1955 Author Organization [facility] Address [address] [place] [address] Care Team Providers Name Role Phone Asked, No Pcp Primary Care Provider Unavailable Allergies Not on File Current Medications Not on file Active Problems Not on file Encounters Date Type Specialty Care Team Description 06/17/2017 Hospital Encounter Radiology Deepak Raza Elevated diaphragm 06/13/2017 Transcribe Orders Access Deepak Raza Elevated diaphragm (Primary Dx) after 12/29/2016 Social History Tobacco Use Types Packs/Day Years Used Date Never Assessed Sex Assigned at Date Recorded Not on file Last Filed Vital Signs Not on file Plan of Treatment Health Maintenance Due Date Last Done Comments COLON CANCER SCREENING 2007 SHINGRIX VACCINE (#1) 2007 ZOSTER VACCINE 2017 INFLUENZA VACCINE 10/05/2017 01/20/2016 Procedures Procedure Name Priority Date/Time Associated Comments Diagnosis [place] FLUOROSCOPY OF Routine 06/17/2017 11:30 Elevated diaphragm Results for this DIAPHRAGM NO FILMS AM CDT procedure are in the results section. after 12/29/2016 Results [place] Fluoroscopy Of Diaphragm No Films (06/17/2017 11:30 AM) Narrative Performed At EXAMINATION:[place] FLUOROSCOPY OF DIAPHRAGM NO FILMS [facility] CLINICAL HISTORY:J98.6 Disorders of diaphragm, Elevated diaphragm COMPARISON:None. TECHNIQUE: Diaphragms were observed under fluoroscopy during quiet and deep breathing and with sniff testing. Fluoroscopic time: 0.4 minutes; number of spot film images: 2 FINDINGS: There was normal motion of the left hemidiaphragm.The right hemidiaphragm showed no movement and some very slight paradoxical movement with sniffing. IMPRESSION: Paralyzed right hemidiaphragm [facility]-[id number] Procedure Note Interface, Radiology Results Incoming - 06/17/2017 11:46 AM CDT EXAMINATION: [place] FLUOROSCOPY OF DIAPHRAGM NO FILMS CLINICAL HISTORY: J98.6 Disorders of diaphragm, Elevated diaphragm COMPARISON: None. TECHNIQUE: Diaphragms were observed under fluoroscopy during quiet and deep breathing and with sniff testing. Fluoroscopic time: 0.4 minutes; number of spot film images: 2 FINDINGS: There was normal motion of the left hemidiaphragm. The right hemidiaphragm showed no movement and some very slight paradoxical movement with sniffing. IMPRESSION: Paralyzed right hemidiaphragm [facility]-[id number] Performing Organization Address City/State/Zipcode Phone Number [facility] [address] [place] [address] after 12/29/2016 Insurance Payer Benefit Plan / Group Subscriber ID Type Phone Address [facility] [id number] IEBP xxxxxxxxxxxx PPO Home: Griselda HART [id number] [phone] [address]
--- OUTSIDE RECORDS SUMMARY | 2017-12-30 09:07 | XMS REPORT ---
:1955 [facility] Address [address] [place] [address] Care Team Providers Name Role Phone ELIE LOW Unavailable Unavailable HORACIO DELCID Unavailable Unavailable Problems This patient has no known problems. Allergies, Adverse Reactions, Alerts This patient has no known allergies or adverse reactions. Medications This patient has no known medications. Results Test Description Test Time Test Comments Text Results Atomic Results Result Comments BASIC METABOLIC PANEL 2017-10-19 05:08:00 Test Item Value Reference Range Comments SODIUM (BEAKER) (test 137 meq/L 136-145 kkle=943) POTASSIUM (BEAKER) (test 5.0 meq/L 3.5-5.1 jcdi=872) CHLORIDE (BEAKER) (test 105 meq/L 98-107 vysx=334) CO2 (BEAKER) (test 26 meq/L 22-29 mqci=874) BLOOD UREA NITROGEN 11 mg/dL 7-21 (BEAKER) (test djok=735) CREATININE (BEAKER) (test 0.73 mg/dL 0.57-1.25 huoo=799) GLUCOSE RANDOM (BEAKER) 109 mg/dL 70-105 (test aogg=009) CALCIUM (BEAKER) (test 8.9 mg/dL 8.4-10.2 kemf=946) EGFR (BEAKER) (test 110 mL/min/1.73 sq m ESTIMATED GFR IS NOT mlrn=1721) ACCURATE CREATININE CLEARANCE IN PREDICTING GLOMERULAR FILTRATION RATE. ESTIMATED GFR IS NOT APPLICABLE FOR DIALYSIS PATIENTS. CBC (HEMOGRAM ONLY)2017-10-19 04:39:00 Test Item Value Reference Range Comments WHITE BLOOD CELL COUNT (BEAKER) (test mnld=809) 11.7 K/ L 3.5-10.5 RED BLOOD CELL COUNT (BEAKER) (test nzxt=918) 3.77 M/ L 4.63-6.08 HEMOGLOBIN (BEAKER) (test xhwd=033) 12.7 GM/DL 13.7-17.5 HEMATOCRIT (BEAKER) (test ytiq=284) 37.2 % 40.1-51.0 MEAN CORPUSCULAR VOLUME (BEAKER) (test khci=806) 98.7 fL 79.0-92.2 MEAN CORPUSCULAR HEMOGLOBIN (BEAKER) (test 33.7 pg 25.7-32.2 fgse=911) MEAN CORPUSCULAR HEMOGLOBIN CONC (BEAKER) (test 34.1 GM/DL 32.3-36.5 rtkv=481) RED CELL DISTRIBUTION WIDTH (BEAKER) (test 16.1 % 11.6-14.4 dlky=367) PLATELET COUNT (BEAKER) (test vdth=430) 190 K/CU MM 150-450 MEAN PLATELET VOLUME (BEAKER) (test ohpl=354) 10.9 fL 9.4-12.4 NUCLEATED RED BLOOD CELLS (BEAKER) (test 0 /100 WBC 0-0 vywm=447) [id number] 17:34:00 Test Item Value Reference Range Comments ACTIVATED CLOTTING TIME 153 sec TESTED AT [facility] [address] [facility] (BEAKER) (test fxhf=255) [place] [address] [id number] 13:16:00 Test Item Value Reference Range Comments ACTIVATED CLOTTING TIME 307 sec TESTED AT [facility] [address] [facility] (BEAKER) (test uwkh=207) [place] [address] [id number] 05:18:00 Test Item Value Reference Range Comments MAGNESIUM (BEAKER) (test bpmi=597) 2.4 mg/dL 1.6-2.6 BASIC METABOLIC [id number] 05:18:00 Test Item Value Reference Range Comments SODIUM (BEAKER) (test 139 meq/L 136-145 vutt=441) POTASSIUM (BEAKER) (test 5.1 meq/L 3.5-5.1 nrec=460) CHLORIDE (BEAKER) (test 103 meq/L 98-107 kntn=438) CO2 (BEAKER) (test 28 meq/L 22-29 nmgg=646) BLOOD UREA NITROGEN 19 mg/dL 7-21 (BEAKER) (test hgfc=642) CREATININE (BEAKER) (test 0.82 mg/dL 0.57-1.25 wuoz=571) GLUCOSE RANDOM (BEAKER) 138 mg/dL 70-105 (test eups=670) CALCIUM (BEAKER) (test 9.6 mg/dL 8.4-10.2 vfhd=145) EGFR (BEAKER) (test 96 mL/min/1.73 sq m ESTIMATED GFR IS NOT pxlz=5890) ACCURATE CREATININE CLEARANCE IN PREDICTING GLOMERULAR FILTRATION RATE. ESTIMATED GFR IS NOT APPLICABLE FOR DIALYSIS PATIENTS. [id number] 05:40:00 Test Item Value Reference Range Comments MAGNESIUM (BEAKER) (test cnbm=866) 2.4 mg/dL 1.6-2.6 BASIC METABOLIC [id number] 05:40:00 Test Item Value Reference Range Comments SODIUM (BEAKER) (test 137 meq/L 136-145 xpuh=718) POTASSIUM (BEAKER) (test 4.7 meq/L 3.5-5.1 neyl=169) CHLORIDE (BEAKER) (test 104 meq/L 98-107 mwdc=722) CO2 (BEAKER) (test 24 meq/L 22-29 vbvy=051) BLOOD UREA NITROGEN 15 mg/dL 7-21 (BEAKER) (test xljr=288) CREATININE (BEAKER) (test 0.79 mg/dL 0.57-1.25 vkak=818) GLUCOSE RANDOM (BEAKER) 154 mg/dL 70-105 (test iffb=553) CALCIUM (BEAKER) (test 9.8 mg/dL 8.4-10.2 gtov=465) EGFR (BEAKER) (test 100 mL/min/1.73 sq m ESTIMATED GFR IS NOT lgik=9460) ACCURATE CREATININE CLEARANCE IN PREDICTING GLOMERULAR FILTRATION RATE. ESTIMATED GFR IS NOT APPLICABLE FOR DIALYSIS PATIENTS. CBC W/PLT COUNT & AUTO [id number] 05:14:00 Test Item Value Reference Range Comments WHITE BLOOD CELL COUNT (BEAKER) (test kxlb=954) 20.5 K/ L 3.5-10.5 RED BLOOD CELL COUNT (BEAKER) (test xmvp=843) 4.06 M/ L 4.63-6.08 HEMOGLOBIN (BEAKER) (test mqhv=539) 13.7 GM/DL 13.7-17.5 HEMATOCRIT (BEAKER) (test ydac=094) 39.0 % 40.1-51.0 MEAN CORPUSCULAR VOLUME (BEAKER) (test rwlg=316) 96.1 fL 79.0-92.2 MEAN CORPUSCULAR HEMOGLOBIN (BEAKER) (test 33.7 pg 25.7-32.2 ohxg=256) MEAN CORPUSCULAR HEMOGLOBIN CONC (BEAKER) (test 35.1 GM/DL 32.3-36.5 wika=307) RED CELL DISTRIBUTION WIDTH (BEAKER) (test 15.8 % 11.6-14.4 putn=374) PLATELET COUNT (BEAKER) (test wwlj=987) 267 K/CU MM 150-450 MEAN PLATELET VOLUME (BEAKER) (test aaha=168) 11.0 fL 9.4-12.4 NUCLEATED RED BLOOD CELLS (BEAKER) (test 0 /100 WBC 0-0 wypa=294) NEUTROPHILS RELATIVE PERCENT (BEAKER) (test 84 % nwhe=124) LYMPHOCYTES RELATIVE PERCENT (BEAKER) (test 11 % ggqi=270) MONOCYTES RELATIVE PERCENT (BEAKER) (test 4 % nvzx=262) EOSINOPHILS RELATIVE PERCENT (BEAKER) (test 0 % ggvo=525) BASOPHILS RELATIVE PERCENT (BEAKER) (test 0 % zljb=001) NEUTROPHILS ABSOLUTE COUNT (BEAKER) (test 17.28 K/ L 1.78-5.38 havw=827) LYMPHOCYTES ABSOLUTE COUNT (BEAKER) (test 2.32 K/ L 1.32-3.57 stce=218) MONOCYTES ABSOLUTE COUNT (BEAKER) (test 0.71 K/ L 0.30-0.82 epzs=869) EOSINOPHILS ABSOLUTE COUNT (BEAKER) (test 0.00 K/ L 0.04-0.54 yuoo=697) BASOPHILS ABSOLUTE COUNT (BEAKER) (test 0.03 K/ L 0.01-0.08 jjeo=687) IMMATURE GRANULOCYTES-RELATIVE PERCENT (BEAKER) 1 % 0-1 (test khki=2022) CT, BRAIN, WITHOUT [id number] 21:01:00FINAL REPORT CT head without contrast 08/30/2017 8:59 PM CLINICAL HISTORY: Focal neuro deficit, new, fixed or worsening, >6 hoursLEFT FACIAL/HAND NUMBNESS TECHNIQUE: Axial noncontrast CT images through the head were obtained. This examination was performed according to our departmental dose optimization program, which includes automated exposure control, adjustment of the mA and/or kV according to patient size, and/or use of iterated reconstruction technique. COMPARISON: None available FINDINGS: There is no hemorrhage, extra-axial collection, mass, hydrocephalus, or midlineshift. There are rare chronic- appearing microvascular changes in the supratentorial white matter. There is atherosclerotic calcification of the intracranial arterial vasculature. There is generalized parenchymal volume loss. The paranasal sinuses and mastoid air cells are well aerated, save for a retention cyst in the right maxillary sinus. The skull is intact. IMPRESSION: No intracranial hemorrhageor mass effect. If concern for acute pathology persists, further evaluation with MRI is recommended.Signed: Morro Jose Verified Date/Time: 08/30/2017 21: 01:19 Reading Location: [facility] Radiology Reading Room HEMOGLOBIN [id number] 15:01:00 Test Item Value Reference Range Comments HEMOGLOBIN A1C (BEAKER) (test xykv=626) 5.8 % 4.3-6.1 CBC W/PLT COUNT & AUTO [id number] 10:55:00 Test Item Value Reference Range Comments WHITE BLOOD CELL COUNT (BEAKER) (test lcly=698) 13.1 K/ L 3.5-10.5 RED BLOOD CELL COUNT (BEAKER) (test mmlk=329) 4.54 M/ L 4.63-6.08 HEMOGLOBIN (BEAKER) (test zwre=143) 13.3 GM/DL 13.7-17.5 HEMATOCRIT (BEAKER) (test jqjr=816) 43.4 % 40.1-51.0 MEAN CORPUSCULAR VOLUME (BEAKER) (test ooon=613) 95.6 fL 79.0-92.2 MEAN CORPUSCULAR HEMOGLOBIN (BEAKER) (test 29.3 pg 25.7-32.2 lkmi=108) MEAN CORPUSCULAR HEMOGLOBIN CONC (BEAKER) (test 30.6 GM/DL 32.3-36.5 uoej=630) RED CELL DISTRIBUTION WIDTH (BEAKER) (test 14.7 % 11.6-14.4 agyz=489) PLATELET COUNT (BEAKER) (test qaag=848) 257 K/CU MM 150-450 MEAN PLATELET VOLUME (BEAKER) (test idpd=883) 10.7 fL 9.4-12.4 NUCLEATED RED BLOOD CELLS (BEAKER) (test 0 /100 WBC 0-0 lvkb=888) NEUTROPHILS RELATIVE PERCENT (BEAKER) (test 86 % eqkb=197) LYMPHOCYTES RELATIVE PERCENT (BEAKER) (test 12 % oozy=885) MONOCYTES RELATIVE PERCENT (BEAKER) (test 2 % izhx=709) EOSINOPHILS RELATIVE PERCENT (BEAKER) (test 0 % ylkr=569) BASOPHILS RELATIVE PERCENT (BEAKER) (test 0 % subk=648) NEUTROPHILS ABSOLUTE COUNT (BEAKER) (test 11.18 K/ L 1.78-5.38 cgut=280) LYMPHOCYTES ABSOLUTE COUNT (BEAKER) (test 1.56 K/ L 1.32-3.57 mkmv=599) MONOCYTES ABSOLUTE COUNT (BEAKER) (test 0.19 K/ L 0.30-0.82 zslr=231) EOSINOPHILS ABSOLUTE COUNT (BEAKER) (test 0.00 K/ L 0.04-0.54 duok=162) BASOPHILS ABSOLUTE COUNT (BEAKER) (test 0.03 K/ L 0.01-0.08 lfde=274) IMMATURE GRANULOCYTES-RELATIVE PERCENT (BEAKER) 1 % 0-1 (test kdsm=1353) [id number] 07:11:00 Test Item Value Reference Range Comments MAGNESIUM (BEAKER) (test qxzn=788) 2.1 mg/dL 1.6-2.6 BASIC METABOLIC [id number] 07:11:00 Test Item Value Reference Range Comments SODIUM (BEAKER) (test 136 meq/L 136-145 aovr=784) POTASSIUM (BEAKER) (test 4.3 meq/L 3.5-5.1 sdvq=807) CHLORIDE (BEAKER) (test 103 meq/L 98-107 hysz=301) CO2 (BEAKER) (test 23 meq/L 22-29 almt=911) BLOOD UREA NITROGEN 13 mg/dL 7-21 (BEAKER) (test ajns=805) CREATININE (BEAKER) (test 0.77 mg/dL 0.57-1.25 lbjm=730) GLUCOSE RANDOM (BEAKER) 180 mg/dL 70-105 (test vpju=096) CALCIUM (BEAKER) (test 9.6 mg/dL 8.4-10.2 xbtf=416) EGFR (BEAKER) (test 103 mL/min/1.73 sq m ESTIMATED GFR IS NOT sfhv=8854) ACCURATE CREATININE CLEARANCE IN PREDICTING GLOMERULAR FILTRATION RATE. ESTIMATED GFR IS NOT APPLICABLE FOR DIALYSIS PATIENTS. LIPID [id number] 07:11:00 Test Item Value Reference Range Comments TRIGLYCERIDES (BEAKER) (test rfuw=755) 64 mg/dL CHOLESTEROL (BEAKER) (test jvvr=753) 145 mg/dL HDL CHOLESTEROL (BEAKER) (test uxpq=749) 43 mg/dL LDL CHOLESTEROL CALCULATED (BEAKER) (test 89 mg/dL wtik=148) Triglyceride Reference Range: Low Risk <150 Borderline 150- 199 High Risk 200-499 Very High Risk >=500Cholesterol Reference Range: Low Risk <200 Borderline 200-239 High Risk > 240HDL Cholesterol Reference Range: Low Risk >=60 High Risk <40LDL Cholesterol Reference Range: Optimal <100 Near Optimal 100-129 Borderline 130-159 High 160-189 Very High >=190HEPATIC FUNCTION [id number] 07:11:00 Test Item Value Reference Range Comments TOTAL PROTEIN (BEAKER) (test prma=007) 6.8 gm/dL 6.0-8.3 ALBUMIN (BEAKER) (test pzgc=9062) 3.9 g/dL 3.5-5.0 BILIRUBIN TOTAL (BEAKER) (test thow=546) 0.4 mg/dL 0.2-1.2 BILIRUBIN DIRECT (BEAKER) (test bkst=115) 0.2 mg/dL 0.1-0.5 ALKALINE PHOSPHATASE (BEAKER) (test buta=712) 84 U/L 40-150 AST (SGOT) (BEAKER) (test bxfn=906) 15 U/L 5-34 ALT (SGPT) (BEAKER) (test bkxf=170) 25 U/L 6-55 TROPONIN [id number] 01:07:00 Test Item Value Reference Range Comments TROPONIN I (BEAKER) (test agoo=983) < ng/mL 0.00-0.03 Troponin I (TnI) levels must be interpreted [...] failure, acidosis, acute neurological disease, and persistent tachyarrhythmia.CT, CHEST, WITH [id number] 21:13 :00FINAL REPORT EXAM: CT of the chest, with contrast, PE protocol CLINICAL HISTORY: left hilar mass, smoker, [place] TECHNIQUE: Chest CT was performed with intravenous contrast utilizing a PE protocol. 2-D and 3-D reformatted images were obtained. This exam was performed according to our departmental dose optimization program which includes automated exposure control , adjustment of the mA and/or kV according to patient's size and/or use of iterative reconstructive technique. COMPARISON: Chest CT 04/15/2011..FINDINGS: LOWER NECK: Within normal limits.AIRWAYS AND LUNGS: Patent central tracheobronchial tree. Right lower lobe calcified granuloma. Mild bibasilar subsegmental and discoid atelectasis. Elevated right hemidiaphragm.PLEURA: No pleural effusion or pneumothorax.VESSELS: Atheromatous changes of the aorta and branches. No thoracic aortic aneurysm.HEART: Normal heart size. Nopericardial effusion.JASON AND MEDIASTINUM: Within normal limits.VISUALIZED UPPER ABDOMEN: Punctate nonobstructing right upper pole renal stone versus vascular calcification. Calcified splenic granulomas. Subcentimeter hypodensity in the hepatic dome too small to characterize.SOFT TISSUES: Within normal limits.BONES : Multilevel degenerative changes of the visualized spine. Healed fracture of the left lateral sixth rib. IMPRESSION:No thoracic mass or lymphadenopathy.Elevated right hemidiaphragm. Mild bibasilar subsegmental and discoid atelectasis. Signed: Cesia Andrade MDReport Verified Date/Time: 2017 21:13:13 Reading Location: [address] Reading Room URINALYSIS W/ [id number] 15:40:00 Test Item Value Reference Range Comments COLOR (BEAKER) (test bawf=297) Yellow CLARITY (BEAKER) (test ombf=493) Clear SPECIFIC GRAVITY UA (BEAKER) (test 1.012 1.001-1.035 dflm=978) PH UA (BEAKER) (test nqzd=950) 6.5 5.0-8.0 PROTEIN UA (BEAKER) (test zcmo=159) Negative Negative GLUCOSE UA (BEAKER) (test yeyb=404) Negative Negative KETONES UA (BEAKER) (test uvbr=749) Negative Negative BILIRUBIN UA (BEAKER) (test thtm=003) Negative Negative BLOOD UA (BEAKER) (test sbjq=403) Negative Negative NITRITE UA (BEAKER) (test bpim=736) Negative Negative LEUKOCYTE ESTERASE UA (BEAKER) (test Negative Negative hzxl=874) UROBILINOGEN UA (BEAKER) (test obhj=392) 0.2 mg/dL 0.2-1.0 RBC UA (BEAKER) (test eqcj=316) 1 /HPF WBC UA (BEAKER) (test yenm=990) < /HPF MUCUS (BEAKER) (test zrzp=0197) Rare SOURCE(BEAKER) (test rxmt=4334) Urine, Clean Catch CREATINE KINASE (CK), TOTAL AND [id number] 15:34:00 Test Item Value Reference Range Comments CREATINE KINASE TOTAL (BEAKER) (test ywaq=857) 72 U/L 29-200 CREATINE KINASE-MB (BEAKER) (test ziuy=976) 1.4 ng/mL 0.0-6.6 CREATINE KINASE-MB INDEX (BEAKER) (test dvof=488) 1.9 % CK-MB Reference Range:<6.7 Normal6.7-10.0 Borderline>10.0 AbnormalTROPONIN [id number] 15:34:00 Test Item Value Reference Range Comments TROPONIN I (BEAKER) (test qyao=265) < ng/mL 0.00-0.03 Troponin I (TnI) levels must be interpreted [...] failure, acidosis, acute neurological disease, and persistent tachyarrhythmia.B-TYPE NATRIURETIC FACTOR (BNP) 15:34:00 Test Item Value Reference Range Comments B-TYPE NATRIURETIC PEPTIDE (BEAKER) (test qsbx=038) 18 pg/mL 0-100 [id number] 15:33:00 Test Item Value Reference Range Comments PROTIME (BEAKER) (test jyvk=042) 14.0 seconds 11.7-14.7 INR (BEAKER) (test cfkd=550) 1.1 <=5.9 PARTIAL THROMBOPLASTIN TIME (BEAKER) (test 30.4 seconds 22.5-36.0 nuss=050) RECOMMENDED COUMADIN/WARFARIN INR THERAPY RANGESSTANDARD DOSE: 2.0 - 3.0 Includes: PROPHYLAXIS forvenous thrombosis, systemic embolization; TREATMENT for venous thrombosis and/or pulmonary embolus.HIGH RISK: Target INR is 2.5-3.5 for patients with mechanical heart valves.[id number] 15:27:00 Test Item Value Reference Range Comments MAGNESIUM (BEAKER) (test gtgx=120) 2.1 mg/dL 1.6-2.6 BASIC METABOLIC [id number] 15:27:00 Test Item Value Reference Range Comments SODIUM (BEAKER) (test 139 meq/L 136-145 syth=074) POTASSIUM (BEAKER) (test 4.3 meq/L 3.5-5.1 mfph=423) CHLORIDE (BEAKER) (test 103 meq/L 98-107 rpba=208) CO2 (BEAKER) (test 29 meq/L 22-29 ncvl=320) BLOOD UREA NITROGEN 11 mg/dL 7-21 (BEAKER) (test mpgi=969) CREATININE (BEAKER) (test 0.83 mg/dL 0.57-1.25 cosl=025) GLUCOSE RANDOM (BEAKER) 104 mg/dL 70-105 (test bkfm=036) CALCIUM (BEAKER) (test 9.7 mg/dL 8.4-10.2 leif=534) EGFR (BEAKER) (test 95 mL/min/1.73 sq m ESTIMATED GFR IS NOT ztin=7435) ACCURATE CREATININE CLEARANCE IN PREDICTING GLOMERULAR FILTRATION RATE. ESTIMATED GFR IS NOT APPLICABLE FOR DIALYSIS PATIENTS. CBC W/PLT COUNT & AUTO [id number] 15:20:00 Test Item Value Reference Range Comments WHITE BLOOD CELL COUNT (BEAKER) (test lnbw=508) 13.2 K/ L 3.5-10.5 RED BLOOD CELL COUNT (BEAKER) (test nwah=549) 4.42 M/ L 4.63-6.08 HEMOGLOBIN (BEAKER) (test yjzl=888) 13.6 GM/DL 13.7-17.5 HEMATOCRIT (BEAKER) (test nldq=195) 42.3 % 40.1-51.0 MEAN CORPUSCULAR VOLUME (BEAKER) (test grye=633) 95.7 fL 79.0-92.2 MEAN CORPUSCULAR HEMOGLOBIN (BEAKER) (test 30.8 pg 25.7-32.2 byjj=038) MEAN CORPUSCULAR HEMOGLOBIN CONC (BEAKER) (test 32.2 GM/DL 32.3-36.5 pugo=637) RED CELL DISTRIBUTION WIDTH (BEAKER) (test 14.5 % 11.6-14.4 mwym=859) PLATELET COUNT (BEAKER) (test dmvw=421) 290 K/CU MM 150-450 MEAN PLATELET VOLUME (BEAKER) (test tulv=444) 10.2 fL 9.4-12.4 NUCLEATED RED BLOOD CELLS (BEAKER) (test 0 /100 WBC 0-0 nsmn=950) NEUTROPHILS RELATIVE PERCENT (BEAKER) (test 68 % lvya=659) LYMPHOCYTES RELATIVE PERCENT (BEAKER) (test 23 % tpat=137) MONOCYTES RELATIVE PERCENT (BEAKER) (test 6 % thaq=721) EOSINOPHILS RELATIVE PERCENT (BEAKER) (test 2 % jali=028) BASOPHILS RELATIVE PERCENT (BEAKER) (test 1 % adym=280) NEUTROPHILS ABSOLUTE COUNT (BEAKER) (test 8.95 K/ L 1.78-5.38 hjub=328) LYMPHOCYTES ABSOLUTE COUNT (BEAKER) (test 3.04 K/ L 1.32-3.57 xyyf=305) MONOCYTES ABSOLUTE COUNT (BEAKER) (test 0.82 K/ L 0.30-0.82 szis=854) EOSINOPHILS ABSOLUTE COUNT (BEAKER) (test 0.22 K/ L 0.04-0.54 mfcc=220) BASOPHILS ABSOLUTE COUNT (BEAKER) (test 0.08 K/ L 0.01-0.08 hhyi=144) IMMATURE GRANULOCYTES-RELATIVE PERCENT (BEAKER) 0 % 0-1 (test dgfo=4437) RAD, CHEST, 1 VIEW, NON [id number] 15:03:00Reason for exam:->SHORTNESS OF BREATHReason for exam:->DIZZINESSReason for exam:->NUMBNESSFINAL REPORT INDICATION: SHORTNESS OF BREATHDIZZINESSNUMBNESS COMPARISON: May 09, 2014 TECHNIQUE: Chest radiograph, single view, portable technique. FINDINGS / IMPRESSION: Thereare diffuse faint interstitial opacities , suspicious for interstitial edema or atypical pneumonia. There is a questionable left hilar mass. Moderate elevation the right hemidiaphragm is unchanged. No pneumothorax. Osseous structures unremarkable. Chest CT with intravenous contrast is recommended for further evaluation of the left hilum. Signed: Ivet Lewis MDReport Verified Date/Time: 08/29/2017 15:03:26 Reading Location: [facility] Mammo Reading Room
[2017-12-30] MEDS ORDERED: HYDROCODONE/APAP 10/325 TAB ONE (09:32)
--- NOTE | 2017-12-30 10:07 | RAD REPORT ---
EXAM DESCRIPTION: RAD - Ankle Right 3 View - 12/30/2017 9:51 am CLINICAL HISTORY: Right ankle pain status post injury FINDINGS: No fracture or dislocation is seen.
--- NOTE | 2017-12-30 10:31 | EDPHYS ---
Physician Documentation [facility] Name: Claudio Vasquez Age: 62 yrs Sex: Male : 1955 Arrival Date: 12/30/2017 Time: 09:07 Bed 15 Private MD: ED Physician Sudarshan Jaramillo HPI: 12/30 09:22 This 62 yrs old Male presents to ER via Ambulatory with complaints of Ankle rn Injury. 09:22 The patient presents with an injury, pain. The complaints affect the right ankle. rn Onset: The symptoms/episode began/occurred just prior to arrival. Associated signs and symptoms: Pertinent positives: swelling. Severity of symptoms: At their worst the symptoms were moderate, in the emergency department the symptoms are unchanged. The patient has not experienced similar symptoms in the past. Reports walking in yard, fell forward with right foot remaining planted, hurts right heel and along calf. No other injuries. . Historical: - Allergies: 09:18 NKA; ss - PMHx: 09:18 CHF; COPD; Hypertension; Myocardial infarction; ss - PSHx: 09:18 L knee; L shoulder; Appendectomy; cardiac stents; stents in leg; ss - Immunization history:: Adult Immunizations up to date. - Social history:: Smoking status: Patient uses tobacco products, smokes one-half pack cigarettes per day. - Ebola Screening: : Patient denies exposure to infectious person Patient denies travel to an Ebola-affected area in the 21 days before illness onset. - Family history:: not pertinent. - Hospitalizations: : No recent hospitalization is reported. ROS: 09:22 Constitutional: Negative for fever, chills, and weight loss, MS/Extremity: + right rn ankle/heel injury Exam: 09:22 Constitutional: This is a well developed, well nourished patient who is awake, alert, rn and in no acute distress. MS/ Extremity: Pulses equal, no cyanosis. Neurovascular intact. Able to plantar flex right foot, + tenderness/ecchymosis/swelling along heel and achilles tendon. Squeezing calf produces plantar flexion but not as much as LLE. No bony tenderness in ankle or foot. Vital Signs: 09:18 BP 168 / 84; Pulse 82; Temp 98.6(O); em 09:18 Resp 18; Pulse Ox 97% on R/A; Weight 156.49 kg; Height 5 ft. 10 in. (177.80 cm); Pain ss 5/10; 10:08 BP 158 / 80; Pulse 84; Resp 18; Pulse Ox 98% on R/A; Pain 5/10; em 11:01 BP 149 / 81; Pulse 79; Resp 18; Pulse Ox 95% on R/A; Pain 4/10; em 09:18 Body Mass Index 49.50 (156.49 kg, 177.80 cm) ss MDM: 09:08 Patient medically screened. rn 10:28 Differential diagnosis: fracture, sprain, achilles tendon rupture (partial). Data rn reviewed: vital signs, nurses notes, radiologic studies, plain films, and as a result, I will discharge patient. Counseling: I had a detailed discussion with the patient and/or guardian regarding: the historical points, exam findings, and any diagnostic results supporting the discharge/admit diagnosis, radiology results, the need for outpatient follow up, to return to the emergency department if symptoms worsen or persist or if there are any questions or concerns that arise at home. Special discussion: I discussed with the patient/guardian in detail that at this point there is no indication for admission to the hospital. It is understood, however, that if the symptoms persist or worsen the patient needs to return immediately for re-evaluation. Based on the history and exam findings, there is no indication for further emergent testing or inpatient evaluation. I discussed with the patient/guardian the need to see the orthopedic surgeon for further evaluation of the symptoms. ED course: Xrays neg, will place in splint in dorsiflexion, and recommend ortho f/u. Possible achilles tendon partial tear.. 12/30 09:17 Order name: XRAY Ankle RIGHT 3 view; Complete Time: 10:28 rn 12/30 09:17 Order name: XRAY Foot RIGHT 3 View rn 12/30 10:30 Order name: Splint - Ankle: Posterior; Complete Time: 11:14 rn Administered Medications: 09:30 Drug: [place] 10 mg-325 mg 1 tabs Route: PO; [id number] 11:14 Follow up: Response: No adverse reaction em Disposition: 12/30/17 10:31 Discharged to Home. Impression: Unspecified injury of right Achilles tendon. - Condition is Stable. - Discharge Instructions: Partial (Incomplete) Achilles Tendon Rupture. - Prescriptions for Tylenol- Codeine #3 300-30 mg Oral Tablet - take 1 tablet by ORAL route every 6 hours As needed; 15 tablet. - Medication Reconciliation Form, Thank You Letter, Antibiotic Education, Prescription Opioid Use form. - Follow up: Campos Raymond MD; When: As needed; Reason: Recheck today's complaints, Re-evaluation by your physician. - Problem is new. - Symptoms have improved. Signatures: Dispatcher [employer] [facility] Vicente Jeffrey, QUALITY ASSURANCE CALIBRATOR QUALITY ASSURANCE CALIBRATOR Sudarshan Jaramillo MD MD rn Smirch, Shelby, RN RN Patricia Wells RN RN [id number] Corrections: (The following items were deleted from the chart) 10:30 10:28 Walking boot ordered. rn rn 11:23 10:31 12/30/2017 10:31 Discharged to Home. Impression: Unspecified injury of right em Achilles tendon. Condition is Stable. Forms are Medication Reconciliation Form, Thank You Letter, Antibiotic Education, Prescription Opioid Use. Follow up: Campos Raymond; When: As needed; Reason: Recheck today's complaints, Re-evaluation by your physician. Problem is new. Symptoms have improved. rn
--- NOTE | 2017-12-30 10:31 | ER ---
Nurse's Notes [facility] Name: Claudio Vasquez Age: 62 yrs Sex: Male : 1955 Arrival Date: 12/30/2017 Time: 09:07 Bed 15 Private MD: Diagnosis: Unspecified injury of right Achilles tendon Presentation: 12/30 09:14 Presenting complaint: Patient states: R ankle pain after stepping into mud yesterday. ss Transition of care: patient was not received from another setting of care. Onset of symptoms was December 29, 2017. Risk Assessment: Do you want to hurt yourself or someone else? Patient reports no desire to harm self or others. Initial Sepsis Screen: Does the patient meet any 2 criteria? No. Patient's initial sepsis screen is negative. Does the patient have a suspected source of infection? No. Patient's initial sepsis screen is negative. Care prior to arrival: None. 09:14 Method Of Arrival: Ambulatory ss 09:14 Acuity: MILLIE 4 ss Historical: - Allergies: 09:18 NKA; ss - PMHx: 09:18 CHF; COPD; Hypertension; Myocardial infarction; ss - PSHx: 09:18 L knee; L shoulder; Appendectomy; cardiac stents; stents in leg; ss - Immunization history:: Adult Immunizations up to date. - Social history:: Smoking status: Patient uses tobacco products, smokes one-half pack cigarettes per day. - Ebola Screening: : Patient denies exposure to infectious person Patient denies travel to an Ebola-affected area in the 21 days before illness onset. - Family history:: not pertinent. - Hospitalizations: : No recent hospitalization is reported. Screenin:31 Abuse screen: Denies threats or abuse. Nutritional screening: No deficits noted. em Tuberculosis screening: No symptoms or risk factors identified. Fall Risk None identified. Assessment: 09:22 General: Appears in no apparent distress. uncomfortable, Behavior is calm, cooperative. em Pain: Complains of pain in right Achilles and right heel Pain currently is 5 out of 10 on a pain scale. Neuro: Level of Consciousness is awake, alert, obeys commands, Oriented to person, place, time, situation. Cardiovascular: Capillary refill < 3 seconds Patient's skin is warm and dry. Pulses are palpable in right dorsalis pedis artery. Respiratory: Airway is patent Respiratory effort is even, unlabored, Respiratory pattern is regular, symmetrical. GI: Abdomen is round. : No signs and/or symptoms were reported regarding the genitourinary system. EENT: No signs and/or symptoms were reported regarding the EENT system. Derm: Skin is intact, Skin is pink, warm \T\ dry. Bruising that is dark purple, on right heel. Musculoskeletal: Capillary refill < 3 seconds, Range of motion: limited in right ankle. 09:30 General: The previous assessment is accurate. Call light remains within reach. . ss 10:08 Reassessment: Patient appears in no apparent distress at this time. Patient and/or em family updated on plan of care and expected duration. Pain level reassessed. Patient is alert, oriented x 3, equal unlabored respirations, skin warm/dry/pink. rates pain 5/10. 11:00 Reassessment: Patient appears in no apparent distress at this time. Patient and/or em family updated on plan of care and expected duration. Pain level reassessed. Patient is alert, oriented x 3, equal unlabored respirations, skin warm/dry/pink. Vital Signs: 09:18 BP 168 / 84; Pulse 82; Temp 98.6(O); em 09:18 Resp 18; Pulse Ox 97% on R/A; Weight 156.49 kg; Height 5 ft. 10 in. (177.80 cm); Pain ss 5/10; 10:08 BP 158 / 80; Pulse 84; Resp 18; Pulse Ox 98% on R/A; Pain 5/10; em 11:01 BP 149 / 81; Pulse 79; Resp 18; Pulse Ox 95% on R/A; Pain 4/10; em 09:18 Body Mass Index 49.50 (156.49 kg, 177.80 cm) ED Course: 09:07 Patient arrived in ED. mr 09:08 Sudarshan Jaramillo MD is Attending Physician. rn 09:15 Triage completed. ss 09:18 Vicente Jeffrey LVN is Primary Nurse. em 09:18 Arm band placed on right wrist. ss 09:31 Patient has correct armband on for positive identification. Bed in low position. Call em light in reach. 09:31 No provider procedures requiring assistance completed. em 09:48 XRAY Ankle RIGHT 3 view In Process Unspecified. EDMS 09:48 XRAY Foot RIGHT 3 View In Process Unspecified. EDMS 10:30 Campos Raymond MD is Referral Physician. rn 11:22 Patient did not have IV access during this emergency room visit. Crutch training done. em Orthoglass splint: Posterior long leg splint applied on right leg. Administered Medications: 09:30 Drug: [place] 10 mg-325 mg 1 tabs Route: PO; jl7 11:14 Follow up: Response: No adverse reaction em Outcome: 10:31 Discharge ordered by MD. rn 11:22 Discharged to home via wheelchair. em 11:22 Condition: good 11:22 Discharge instructions given to patient, Instructed on discharge instructions, follow up and referral plans. no drinking with medication, no driving heavy equipment, medication usage, Demonstrated understanding of instructions, follow-up care, medications, Prescriptions given X 1. 11:23 Patient left the ED. em Signatures: Dispatcher [employer] EDWY Kae Beverly, Vicente, GUARD MANAGER GUARD MANAGER em Sudarshan Jaramillo MD MD rn Smirch, Shelby, RN RN ss Leal, Jahala, RN RN jl7
[2017-12-30 11:28] VITALS: TEMP 98.6
[2017-12-30 11:30] VITALS: BP 149/81; O2SAT 95
--- NOTE | 2017-12-30 11:39 | RAD REPORT ---
EXAM DESCRIPTION: RAD - Foot Right 3 View - 12/30/2017 9:54 am CLINICAL HISTORY: Right foot pain status post injury FINDINGS: An oblique lucency is present within the base of the second metatarsal probably representi ng a prominent trabecula. Nondisplaced fracture can also have this appearance and should be correlate d clinically. No dislocation is seen. Soft tissue calcifications involve the posterior ankle. Small bony densities adjacent to the calcaneus likely represent ossicles. If the patient has clinical symptoms to suggest an occult fracture MRI would be recommended
== END 2017-12-30 11:23 | disposition home or self-care (01) ==
LOC: ER 09:04
DX: S86.001A Unspecified injury of right Achilles tendon, initial encounter (principal); W19.XXXA Unspecified fall, initial encounter; Y93.01 Activity, walking, marching and hiking; Y92.007 Garden or yard of unspecified non-institutional (private) residence as the place of occurrence of the external cause; Z95.818 Presence of other cardiac implants and grafts; I10 Essential (primary) hypertension
CPT/HCPCS: 99284

== ENCOUNTER 2022-12-31 15:28 | Emergency (ER) | payer OTHER ==
--- OUTSIDE RECORDS SUMMARY | 2022-12-31 15:40 | XMS REPORT | Continuity of Care Document ---
:1955 Author Organization [facility] t Address [address] [place] [address] [address] [place] [address] Care Team Providers Name Role Phone Asked, No Pcp Primary Care Physician Unavailable Doctor Unassigned, [place] Attending Clinician Unavailable Edagr Allred MD Attending Clinician ELIE LOW Attending Clinician Unavailable HORACIO DELCID Attending Clinician Unavailable ELIE LOW Admitting Clinician Unavailable HORACIO DELCID Admitting Clinician Unavailable Payers Payer Name Policy Type Policy Number Effective Date Expiration Date S ource Problems Condition Condition Condition Status Onset Resolution Last Treating Co mments Source Name Details Category Date Date Treatment Clinician Date Rupture of Rupture of Disease Active U nivers right right 3-25 ity of Achilles Achilles 00:00: [place] tendon, tendon, 00 Medical subsequent subsequent Br anch encounter encounter Peripheral Peripheral Disease Recurre [facility] vascular vascular nce 8-14 [facility] disease, disease, 00:00: Medica l unspecifie unspecifie 00 Ce nter d d Left leg Left leg Disease Recurre [facility] claudicati claudicati nce 8-14 Rekha kes on on 00:00: Medical 00 [place] Disease Active [facility] (dyspnea (dyspnea 6-25 [facility] on on 00:00: Medical exertion) exertion) 00 Cent er Hyperchole Hyperchole Disease Active 2017- U nivers sterolemia sterolemia -31 it y of 00:00: [place] 00 Medical Branch CAD CAD Disease Active Univers (coronary (coronary 04-06 ity of artery artery 00:00: [place] disease) disease) 00 Medica l Branch PVD PVD Disease Active Univers (periphera (periphera -31 [place] vascular [place] disease[place] disease[place] 00 Medica l Branch Essential Essential Disease Active Uni vers hypertensi hypertensi 04-06 it y of on on 00:00: [place] 00 Medical Branch PVD PVD Disease Active [facility] (periphera (periphera 4-07 Rekha kes l vascular l vascular 00:00: Me dical disease) disease) 00 Center with with claudicati claudicati on on Depressive Depressive Disease Active [facility] disorder, disorder, 4-06 [facility] not not 00:00: Medical elsewhere elsewhere 00 Cent er classified classified Hemorrhage Hemorrhage Disease Active [facility] of of 06-10 [facility] gastrointe gastrointe 00:00: Me dical stinal stinal 00 Center tract, tract, unspecifie unspecifie d d 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 [facility]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 Rekha kes infarction infarction 00:00: Me dical 00 Center Obstructiv Obstructiv Disease Active [facility] e sleep e sleep 06 [facility] apnea apnea 00:00: Medical (adult) (adult) 00 Center (pediatric (pediatric ) ) 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 06 [facility] branch branch 00:00: Medical block block 00 Center Morbid Morbid Disease Active [facility] obesity obesity -06 [facility] 00:00: Medical 00 Center Essential Essential Disease Active [facility] hypertensi hypertensi 4-06 Rekha kes on on 00:00: Medical 00 Center Other Other Disease Active [facility] chronic chronic 4-06 [facility] nonalcohol nonalcohol 00:00: Me dical ic liver ic liver 00 Center disease disease COPD COPD Disease Active [facility] (chronic (chronic 4-06 [facility] obstructiv obstructiv 00:00: Me dical e e 00 Center pulmonary pulmonary disease) disease) CAD CAD Disease Active [facility] (coronary (coronary 3-12 [facility] artery artery 00:00: Medical disease) disease) 00 Center Allergies, Adverse Reactions, Alerts This patient has no known allergies or adverse reactions. Family History Family Member Diagnosis Comments Start Date Stop Date Source Natural brother Hypertension [facility] Natural father Cancer [facility] Natural father Diabetes [facility] Natural mother Coronary artery disease [facility] Natural mother Hyperlipidemia [facility] Natural mother Hypertension [facility] Natural mother Peripheral vascular [facility] Natural mother Stroke [facility] Natural sister Cancer [facility] Social History Social Habit Start Date Stop Date Quantity Comments Source History of tobacco Cigarette Smoker [facility] use [facility] Sexual orientation Method ist [facility] Alcohol intake 2017-10-19 2017-10-19 Current [facility] 00:00:00 00:00:00 non-drinker of [facility] nter alcohol (finding) Cigarette 2017-10-18 2017-10-18 [facility] pack-years 00:00:00 00:00:00 [facility] Tobacco Comment 2017-10-18 2017-10-18 quit [address] [facility] 00:00:00 00:00:00 [facility] Cigarettes smoked 2016-04-06 2016-04-06 Univers ity of current (pack per 00:00:00 00:00:00 [facility] ) - Reported Branch Tobacco use and 2016-04-06 2016-04-06 Never used Universit y of exposure 00:00:00 00:00:00 [facility] Sex Ass[birth year] At [birth year] [facility] 00:00:00 00:00:00 [facility] Smoking Status Start Date Stop Date Source Tobacco smoking [facility] consumption unknown Ex-smoker 2017-10-18 00:00:00 2017-10-18 [facility] 00:00:00 [place] Current every day smoker 2016-04-06 00:00:00 Uni versity of [place] [facility] Medications Ordered Filled Start Stop Current Ordering Indication Dosage Frequency Signature Comments Components Source Medication Medication Date Date Medication? Clinician (SIG) Name Name diclofenac Yes 75mg Take 1 Unive rs 75 mg EC 8 tablet by ity of tablet 00:00: mouth 2 [place] 00 (two) Medical times Branch daily with meals. diclofenac 2019-0 Yes 75mg Take 1 Unive rs 75 mg EC 8-06 tablet by ity of tablet 00:00: mouth 2 [place] (two) Medical times Branch daily with meals. diclofenac 2019-0 Yes 75mg Take 1 Unive rs 75 mg EC 8-06 tablet by ity of tablet 00:00: mouth 2 [place] (two) Medical times Branch daily with meals. diclofenac 2019-0 Yes 75mg Take 1 Unive rs 75 mg EC 8-06 tablet by ity of tablet 00:00: mouth 2 [place] (two) Medical times Branch daily with meals. diclofenac 2019-0 Yes 75mg Take 1 Unive rs 75 mg EC 8-06 tablet by ity of tablet 00:00: mouth 2 [place] (two) Medical times Branch daily with meals. prasugrel 2019-0 Yes 10mg Take 10 mg Un rosa elena (EFFIENT) 1-09 by mouth ity of 10 mg 19:09: daily. [place] [address] Medical Branch metoprolol 2018-0 Yes 100mg Take 100 Un rosa elena succinate 1-09 mg by ity of XL 100 mg 19:09: mouth [place] 24 hr daily. Medical tablet Branch simvastatin 0 Yes 40mg Take 40 mg Univers 40 mg 109 by mouth ity of tablet 19:09: at [place] [address] bedtime. Medical Branch aspirin 81 2018-0 Yes 81mg Take 81 mg U nivers mg EC 09 by mouth. ity of tablet 19:09: [place] [address] Medical Branch fluticasone 2019-0 Yes 1{puff} Inhale 1 Univers -vilanterol 1-09 Puff. ity of (BREO 19:09: [place] [address] Medical 100-25 Branch mcg/dose DsDv prasugrel 2019-0 Yes 10mg Take 10 mg Un rosa elena (EFFIENT) 1-09 by mouth ity of 10 mg 19:09: daily. [place] [address] Medical Branch metoprolol 2018-0 Yes 100mg Take 100 Un [facility]sa elena succinate 1-09 mg by ity of XL 100 mg 19:09: mouth [place] 24 hr daily. Medical tablet Branch simvastatin 2019-0 Yes 40mg Take 40 mg Univers 40 mg 1-09 by mouth ity of tablet 19:09: at [place] [address] bedtime. Medical Branch aspirin 81 2019-0 Yes 81mg Take 81 mg U nivers mg EC 1-09 by mouth. ity of tablet 19:09: [address] fluticasone Yes 1{puff} Inhale 1 Univers -vilanterol 1-09 Puff. ity of (BREO 19:09: [place] [address] Medical 100-25 Branch mcg/dose DsDv prasugrel Yes 10mg Take 10 mg Un rosa elena (EFFIENT) 1-09 by mouth ity of 10 mg 19:09: daily. [place] [address] Medical Branch metoprolol Yes 100mg Take 100 Un rosa elena succinate 1-09 mg by ity of XL 100 mg 19:09: mouth [place] 24 hr 32 daily. Medical tablet Branch simvastatin Yes 40mg Take 40 mg Univers 40 mg 1-09 by mouth ity of tablet 19:09: at [place] [address] bedtime. Medical Branch aspirin 81 Yes 81mg Take 81 mg U nivers mg EC 1-09 by mouth. ity of tablet 19:09: [address] fluticasone Yes 1{puff} Inhale 1 Univers -vilanterol 1-09 Puff. ity of (BREO 19:09: [address] [address] Branch mcg/dose DsDv prasugrel Yes 10mg Take 10 mg Un rosa elena (EFFIENT) 1-09 by mouth ity of 10 mg 19:09: daily. [place] [address] Medical [place] metoprolol Yes 100mg Take 100 Un rosa elena succinate 1-09 mg by ity of XL 100 mg 19:09: mouth [place] 24 hr 32 daily. Medical tablet Branch simvastatin 0 Yes 40mg Take 40 mg Univers 40 mg 1-09 by mouth ity of tablet 19:09: at [place] [address] bedtime. Medical Branch aspirin 81 0 Yes 81mg Take 81 mg U nivers mg EC 1-09 by mouth. ity of tablet 19:09: [address] fluticasone Yes 1{puff} Inhale 1 Univers -vilanterol 1-09 Puff. ity of (BREO 19:09: [place] [address] Medical 100-25 Branch mcg/dose DsDv prasugrel Yes 10mg Take 10 mg Un rosa elena (EFFIENT) 1-09 by mouth ity of 10 mg 19:09: daily. [place] [address] Medical Branch metoprolol 0 Yes 100mg Take 100 Un rosa elena succinate 1-09 mg by ity of XL 100 mg 19:09: mouth [place] 24 hr 32 daily. Medical tablet Branch simvastatin 0 Yes 40mg Take 40 mg Univers 40 mg 1-09 by mouth ity of tablet 19:09: at [place] [address] bedtime. Medical Branch aspirin 81 0 Yes 81mg Take 81 mg U nivers mg EC 1-09 by mouth. ity of tablet 19:09: [address] fluticasone 0 Yes 1{puff} Inhale 1 Univers -vilanterol 1-09 Puff. ity of (BREO 19:09: [address] [address] [place] mcg/dose DsDv prasugrel Yes 10mg Take 10 mg Un rosa elena (EFFIENT) 109 by mouth ity of 10 mg 13:09: daily. [place] [address] Medical Branch metoprolol 0 Yes 100mg Take 100 Un rosa elena succinate 1-09 mg by ity of XL 100 mg 13:09: mouth [place] 24 hr daily. Medical tablet Branch simvastatin 0 Yes 40mg Take 40 mg Univers 40 mg 09 by mouth ity of tablet 13:09: at [place] [address] bedtime. Medical Branch aspirin 81 0 Yes 81mg Take 81 mg U nivers mg EC 09 by mouth. ity of tablet 13:09: [address] fluticasone 0 Yes 1{puff} Inhale 1 Univers -vilanterol -09 Puff. ity of (BREO 13:09: [address] [address] [place] mcg/dose DsDv diclofenac 2017-03 Yes 75mg Take 1 Unive rs 75 mg EC 13 tablet by ity of tablet 00:00: mouth 2 [place] 00 (two) Medical times [place] daily with meals. diclofenac 2017-03 2019- No 75mg Take 1 Univ ers 75 mg EC 13 08- tablet by ity o f tablet 00:00: 00:00 mouth 2 [place] 00 :00 (two) Medical times [place] daily with meals. prasugrel Yes 10mg QD Take [address] (EFFIENT) 8-15 by mouth [facility] 10 mg Tab 13:50: daily. Medica l tablet [address] [place] [address] aspirin 81 2018-0 Yes 81mg QD Take [address] MG EC 8-15 by mouth [facility] tablet 13:50: daily. [address] simvastatin 2018-0 Yes 40mg QD Take [address] [facility] (ZOCOR) 40 8-15 by mouth [facility] MG tablet 13:50: nightly. [address] nitroglycer 2018-0 Yes 1{spray Place [address] in 8-15 } spray [facility] (NITROLINGU 13:50: under the edical AL) 0.4 12 tongue Center mg/dose every 5 spray (five) minutes as needed for Chest pain. fluticasone 2018-0 Yes 1{puff} QD Inhale [address] -vilanterol 8-15 puff by [facility] (BREO 13:50: mouth via Medical ELLIPTA) 12 inhaler Center 100-25 daily. mcg/dose DsDv prasugrel 2018-0 Yes 10mg QD Take [address] (EFFIENT) 8-15 by mouth [facility] 10 mg Tab 13:50: daily. Medica l tablet [address] [place] [address] aspirin 81 0 Yes 81mg QD Take [address] MG EC 8-15 by mouth [facility] tablet 13:50: daily. [address] simvastatin 2018-0 Yes 40mg QD Take [address] (ZOCOR) 40 8-15 by mouth [facility] MG tablet 13:50: nightly. [address] nitroglycer 2018-0 Yes 1{spray Place [address] in 8-15 } spray [facility] (NITROLINGU 13:50: under the edical AL) 0.4 12 tongue Center mg/dose every 5 spray (five) minutes as needed for Chest pain. fluticasone 2018-0 Yes 1{puff} QD Inhale [address] -vilanterol 8-15 puff by [facility] (BREO 13:50: mouth via Medical ELLIPTA) 12 inhaler Center 100-25 daily. mcg/dose DsDv prasugrel 2018-0 Yes 10mg QD Take [address] (EFFIENT) 8-15 by mouth [facility] 10 mg Tab 13:50: daily. Medica l tablet 12 [place] aspirin 81 2018-0 Yes 81mg QD Take [address] MG EC 8-15 by mouth [facility] tablet 13:50: daily. [address] simvastatin 2018-0 Yes 40mg QD Take [address] (ZOCOR) 40 8-15 by mouth [facility] MG tablet 13:50: nightly. [address] nitroglycer 2018-0 Yes 1{spray Place [address] in 8-15 } spray [facility] (NITROLINGU 13:50: under the edical AL) 0.4 12 tongue Center mg/dose every 5 spray (five) minutes as needed for Chest pain. fluticasone 2018-0 Yes 1{puff} QD Inhale [address] -vilanterol 8-15 puff by [facility] (BREO 13:50: mouth via Medical ELLIPTA) 12 inhaler Center 100-25 daily. mcg/dose DsDv prasugrel 2018-0 Yes 10mg QD Take [address] (EFFIENT) 8-15 by mouth [facility] 10 mg Tab 13:50: daily. Medica l tablet [address] [place] [address] aspirin 81 0 Yes 81mg QD Take [address] MG EC 8-15 by mouth [facility] tablet 13:50: daily. [address] simvastatin [address] Yes 40mg QD Take [address] (ZOCOR) 40 8-15 by mouth [facility] MG tablet 13:50: nightly. [address] nitroglycer 0 Yes 1{spray Place [address] [facility] in 8-15 } spray [facility] (NITROLINGU 13:50: under the edical AL) 0.4 12 tongue Center mg/dose every 5 spray (five) minutes as needed for Chest pain. fluticasone 2018-0 Yes 1{puff} QD Inhale [address] -vilanterol 8-15 puff by [facility] (BREO 13:50: mouth via Medical ELLIPTA) 12 inhaler Center 100-25 daily. mcg/dose DsDv prasugrel 2018-0 Yes 10mg QD Take [address] (EFFIENT) 8-15 by mouth [facility] 10 mg Tab 13:50: daily. Medica l tablet [address] [place] [address] aspirin 81 2018-0 Yes 81mg QD Take [address] MG EC 8-15 by mouth [facility] tablet 13:50: daily. [address] simvastatin 2018-0 Yes 40mg QD Take [address] (ZOCOR) 40 8-15 by mouth [facility] MG tablet 13:50: nightly. [address] nitroglycer 2018-0 Yes 1{spray Place [address] [facility] in 8-15 } spray [facility] (NITROLINGU 13:50: under the edical AL) 0.4 12 tongue Center mg/dose every 5 spray (five) minutes as needed for Chest pain. fluticasone 2018-0 Yes 1{puff} QD Inhale [address] -vilanterol 8-15 puff by [facility] (BREO 13:50: mouth via Medical ELLIPTA) 12 inhaler Center 100-25 daily. mcg/dose DsDv prasugrel 2018-0 Yes 10mg QD Take [address] (EFFIENT) 8-15 by mouth [facility] 10 mg Tab 13:50: daily. Medica l tablet [address] [place] [address] aspirin 81 2018-0 Yes 81mg QD Take [address] MG EC 8-15 by mouth [facility] tablet 13:50: daily. [address] simvastatin 2018-0 Yes 40mg QD Take [address] (ZOCOR) 40 8-15 by mouth [facility] MG tablet 13:50: nightly. [address] nitroglycer 2018-0 Yes 1{spray Place [address] [facility] in 8-15 } spray [facility] (NITROLINGU 13:50: under the edical AL) 0.4 12 tongue Center mg/dose every 5 spray (five) minutes as needed for Chest pain. fluticasone 2018-0 Yes 1{puff} QD Inhale [address] -vilanterol 8-15 puff by [facility] (BREO 13:50: mouth via Medical ELLIPTA) 12 inhaler Center 100-25 daily. mcg/dose DsDv NIFEdipine 2018-0 Yes 30mg QD Take 1 [facility] (ADALAT CC) 6-29 tablet (30 Rekha kes 30 MG 24 hr 00:00: mg total) M edical tablet 00 by mouth Center daily. NIFEdipine 2018-0 Yes 30mg QD Take 1 [facility] (ADALAT CC) 6-29 tablet (30 Rekha kes 30 MG 24 hr 00:00: mg total) M edical tablet 00 by mouth Center daily. NIFEdipine 2018-0 Yes 30mg QD Take 1 [facility] (ADALAT CC) 6-29 tablet (30 Rekha kes 30 MG 24 hr 00:00: mg total) M edical tablet 00 by mouth Center daily. NIFEdipine 2018-0 Yes 30mg QD Take 1 [facility] (ADALAT CC) 6-29 tablet (30 Rekha kes 30 MG 24 hr 00:00: mg total) M edical tablet 00 by mouth Center daily. NIFEdipine 2018-0 Yes 30mg QD Take 1 [facility] (ADALAT CC) 6-29 tablet (30 Rekha kes 30 MG 24 hr 00:00: mg total) M edical tablet 00 by mouth Center daily. NIFEdipine 2018-0 Yes 30mg QD Take 1 [facility] (ADALAT CC) 6-29 tablet (30 Rekha kes 30 MG 24 hr 00:00: mg total) M edical tablet 00 by mouth Center daily. albuterol Yes 2{puff} Inhale 2 U nivers 90 6-28 Puffs. ity of mcg/actuati 00:00: [place] on inhaler Medical Branch albuterol Yes 2{puff} Inhale 2 U nivers 90 6-28 Puffs. ity of mcg/actuati 00:00: [place] on inhaler Medical Branch albuterol 0 Yes 2{puff} Inhale 2 U nivers 90 6-28 Puffs. ity of mcg/actuati 00:00: [place] on inhaler Medical Branch albuterol 0 Yes 2{puff} Inhale 2 U nivers 90 6-28 Puffs. ity of mcg/actuati 00:00: [place] on inhaler Medical Branch albuterol 0 Yes 2{puff} Inhale 2 U nivers 90 6-28 Puffs. ity of mcg/actuati 00:00: [place] on inhaler Medical Branch albuterol 0 Yes 2{puff} Inhale 2 U nivers 90 6-28 Puffs. ity of mcg/actuati 00:00: [place] on inhaler Medical Branch metoprolol 2017-0 Yes 100mg QD Take [address] [facility] (TOPROL-XL) 6-28 tablet [facility] 100 MG 24 00:00: (100 mg Medic al hr tablet 00 total) by Cente r mouth daily. albuterol Yes 2{puff} Inhale [address] HFA 6-28 puffs by [facility] (VENTOLIN 00:00: mouth via Med ical HFA) 90 00 inhaler Center mcg/actuati every 6 on inhaler (six) hours as needed for Wheezing or Shortness of Breath. metoprolol 2018-0 Yes 100mg QD Take [address] (TOPROL-XL) 6-28 tablet [facility] 100 MG 24 00:00: (100 mg Medic al hr tablet 00 total) by Cente r mouth daily. albuterol 2018-0 Yes 2{puff} Inhale [address] HFA 6-28 puffs by [facility] (VENTOLIN 00:00: mouth via Med ical HFA) 90 00 inhaler Center mcg/actuati every 6 on inhaler (six) hours as needed for Wheezing or Shortness of Breath. metoprolol 2018-0 Yes 100mg QD Take [address] (TOPROL-XL) 6-28 tablet [facility] 100 MG 24 00:00: (100 mg Medic al hr tablet 00 total) by Cente r mouth daily. albuterol 2018-0 Yes 2{puff} Inhale [address] HFA 6-28 puffs by [facility] (VENTOLIN 00:00: mouth via Med ical HFA) 90 00 inhaler Center mcg/actuati every 6 on inhaler (six) hours as needed for Wheezing or Shortness of Breath. metoprolol 2018-0 Yes 100mg QD Take [address] (TOPROL-XL) 6-28 tablet [facility] 100 MG 24 00:00: (100 mg Medic al hr tablet 00 total) by Cente r mouth daily. albuterol 2018-0 Yes 2{puff} Inhale [address] HFA 6-28 puffs by [facility] (VENTOLIN 00:00: mouth via Med ical HFA) 90 00 inhaler Center mcg/actuati every 6 on inhaler (six) hours as needed for Wheezing or Shortness of Breath. metoprolol 2018-0 Yes 100mg QD Take [address] (TOPROL-XL) 6-28 tablet [facility] 100 MG 24 00:00: (100 mg Medic al hr tablet 00 total) by Cente r mouth daily. albuterol 2018-0 Yes 2{puff} Inhale [address] HFA 6-28 puffs by [facility] (VENTOLIN 00:00: mouth via Med ical HFA) 90 00 inhaler Center mcg/actuati every 6 on inhaler (six) hours as needed for Wheezing or Shortness of Breath. metoprolol Yes 100mg QD Take [address] (TOPROL-XL) 6-28 tablet [facility] 100 MG 24 00:00: (100 mg Medic al hr tablet 00 total) by Cente r mouth daily. albuterol Yes 2{puff} Inhale [address] HFA 6-28 puffs by [facility] (VENTOLIN 00:00: mouth via Med ical HFA) 90 00 inhaler Center mcg/actuati every 6 on inhaler (six) hours as needed for Wheezing or Shortness of Breath. diclofenac Yes 75mg QD Take [address] (VOLTAREN) 2-26 by mouth [facility] 75 MG EC 00:00: daily . Medica l tablet 00 [place] diclofenac Yes 75mg QD Take [address] (VOLTAREN) 2-26 by mouth [facility] 75 MG EC 00:00: daily . Medica l tablet 00 [place] diclofenac Yes 75mg QD Take [address] (VOLTAREN) 2-26 by mouth [facility] 75 MG EC 00:00: daily . Medica l tablet 00 [place] diclofenac Yes 75mg QD Take [address] (VOLTAREN) 2-26 by mouth [facility] 75 MG EC 00:00: daily . Medica l tablet 00 [place] diclofenac Yes 75mg QD Take [address] (VOLTAREN) 2-26 by mouth [facility] 75 MG EC 00:00: daily . Medica l tablet 00 [place] diclofenac Yes 75mg QD Take [address] (VOLTAREN) 2-26 by mouth [facility] 75 MG EC 00:00: daily . Medica l tablet 00 [place] Procedures Procedure Date / Time Performing Clinician Source Performed EXTERNAL PROVIDER 2021-02-16 06:01:00 Doctor Unassigned, No [facility] Medical [place] WORKERS COMPENSATION 2018-11-14 05:01:00 Doctor Unassigned, No U niversity [facility] [place] [facility] WORKERS COMPENSATION 2018-11-02 05:01:00 Doctor Unassigned, No U niversity [facility] [place] [facility] Plan of Care Planned Activity Planned Date Details Comments Source Future Scheduled 2022-12-30 Screening for [facility] Test 20:51:15 malignant neoplasm of colon (procedure) [code = 015061204] Future Scheduled 2022-12-30 SHINGLES VACCINES ([facility] 20:51:15 of 2) [code = SHINGLES VACCINES (1 of 2)] Future Scheduled 2022-12-30 65+ [facility] Test 20:51:15 VACCINE (1 - PCV) [code = 65+ PNEUMOCOCCAL VACCINE (1 - PCV)] Future Scheduled 2022-12-30 INFLUENZA [facility]ACCINE [facility] 20:51:15 [code = INFLUENZA VACCINE (#1)] Future Scheduled 2022-12-30 Screening for [facility] Test 20:51:15 malignant neoplasm of colon (procedure) [code = 172691075] Future Scheduled 2022-12-30 Screening for [facility] Test 20:51:15 malignant neoplasm of colon (procedure) [code = 073974823] Future Scheduled 2022-12-30 Screening for [facility] Test 20:51:15 malignant neoplasm of colon (procedure) [code = 034243480] Future Scheduled 2022-12-30 COVID-19 VACCINE (#1) [facility] 20:51:15 [code = COVID-19 VACCINE (#1)] Future Scheduled 2022-12-30 Screening for [facility] Test 20:51:15 malignant neoplasm of colon (procedure) [code = 088232443] Future Scheduled 2022-12-30 Screening for [facility] Test 20:51:15 malignant neoplasm of colon (procedure) [code = 135705221] Future Scheduled 2022-12-30 SHINGLES VACCINES (1 [facility] Test 20:51:15 of 2) [code = SHINGLES VACCINES (1 of 2)] Future Scheduled 2022-12-30 65+ [facility]OCOCCAL [facility] Test 20:51:15 VACCINE (1 - PCV) [code = 65+ PNEUMOCOCCAL VACCINE (1 - PCV)] Future Scheduled 2022-12-30 Screening for [facility] Test 20:51:15 malignant neoplasm of colon (procedure) [code = 069015602] Future Scheduled 2022-12-30 SHINGLES VACCINES (1 [facility] 20:51:15 of 2) [code = SHINGLES VACCINES (1 of 2)] Future Scheduled 2022-12-30 65+ [facility]OCC[facility] 20:51:15 VACCINE (1 - PCV) [code = 65+ PNEUMOCOCCAL VACCINE (1 - PCV)] Future Scheduled 2022-12-30 INFLUENZA VACCINE (#1) [facility] 20:51:15 [code = INFLUENZA VACCINE (#1)] Future Scheduled 2022-12-30 Screening for [facility] Test 20:51:15 malignant neoplasm of colon (procedure) [code = 882807720] Future Scheduled 2022-12-30 Screening for [facility] Test 20:51:15 malignant neoplasm of colon (procedure) [code = 564994792] Future Scheduled 2022-12-30 Screening for [facility] Test 20:51:15 malignant neoplasm of colon (procedure) [code = 840034679] Future Scheduled 2022-12-30 COVID-19 VACCINE (#1) [facility] 20:51:15 [code = COVID-19 VACCINE (#1)] Future Scheduled 2022-12-30 Screening for [facility] Test 20:51:15 malignant neoplasm of colon (procedure) [code = 737234429] Future Scheduled 2022-12-30 INFLUENZA VACCINE (#1) [facility] 20:51:15 [code = INFLUENZA VACCINE (#1)] Future Scheduled 2022-12-30 Screening for [facility] Test 20:51:15 malignant neoplasm of colon (procedure) [code = 727529899] Future Scheduled 2022-12-30 Screening for [facility] Test 20:51:15 malignant neoplasm of colon (procedure) [code = 128830443] Future Scheduled 2022-12-30 Screening for [facility] Test 20:51:15 malignant neoplasm of colon (procedure) [code = 719326418] Future Scheduled 2022-12-30 COVID-19 VACCINE (#1) [facility] Test 20:51:15 [code = COVID-19 VACCINE (#1)] Future Scheduled 2022-12-30 Screening for [facility] Test 20:51:15 malignant neoplasm of colon (procedure) [code = 082751125] Encounters Start End Encounter Admission Attending Care Care Encounter Source Date/Time Date/Time Type Type Clinicians Facility Department ID 2021-02-16 2021-02-16 Connor TORRES [id number] Univers 00:00:00 00:00:00 Only Unassigned, OSORIO [id number] [facility] [place] [facility] [id number] Sharad as [id number] [address] 2019-03-19 2019-03-19 [place] [facility] [id number] [employer] 00:00:00 00:00:00 [facility] [id number] it y of Surgical [id number] Sharad as Specialti [phone] Oh dical es [address] [facility] 2018-11-14 2018-11-14 Orders Doctor MELISSA [id number] [facility] 00:00:00 00:00:00 Only Unassigned, OSORIO [id number] ity of [place] [facility] 4.2.7.2.686 Sharad as [phone] [address] 2018-11-02 2018-11-02 Orders Doctor MELISSA [id number] Univers 00:00:00 00:00:00 Only Unassigned, OSORIO [id number] ity of [place] [facility] 4.2.7.2.686 Sharad as [phone] [address] 2018-10-10 2018-10-10 Telephone [facility] [id number] Univers 00:00:00 00:00:00 [facility] [id number] it y of Surgical [id number] Sharad as Specialti [phone] Oh dical es [address] [facility] 2018-10-05 2018-10-05 [facility] [id number] Univers 00:00:00 00:00:00 [facility] [id number] it y of Surgical [id number] Sharad as Specialti [phone] Oh dical es 198 [facility] Results Test Description Test Time Test Comments Results Result Comments Source BASIC METABOLIC PANEL 2017-10-19 05:08:00 Test Item Value Reference Range Interpretation Comme nts SODIUM (BEAKER) (test code 137 meq/L 136-145 = 381) POTASSIUM (BEAKER) (test 5.0 meq/L 3.5-5.1 code = 379) CHLORIDE (BEAKER) (test 105 meq/L 98-107 code = 382) CO2 (BEAKER) (test code = 26 meq/L 22-29 355) BLOOD UREA NITROGEN 11 mg/dL 7-21 (BEAKER) (test code = 354) CREATININE (BEAKER) (test 0.73 mg/dL 0.57-1.25 code = 358) GLUCOSE RANDOM (BEAKER) 109 mg/dL 70-105 H (test code = 652) CALCIUM (BEAKER) (test 8.9 mg/dL 8.4-10.2 code = 697) EGFR (BEAKER) (test code = 110 mL/min/1.73 sq m ESTIMATED GFR IS NOT 1092) ACCURATE CRE ATININE CLEARANCE IN MI EDICTING GLOMERULAR FILT RATION RATE. ESTIMATED GFR IS NOT APPLICABLE FOR DIALYSIS PATIENTS. CBC (HEMOGRAM ONLY)2017-10-19 04:39:00 Test Item Value Reference Range Interpretation Comments WHITE BLOOD CELL COUNT (BEAKER) 11.7 K/ L 3.5-10.5 H (test code = 775) RED BLOOD CELL COUNT (BEAKER) 3.77 M/ L 4.63-6.08 L (test code = 761) HEMOGLOBIN (BEAKER) (test code = 12.7 GM/DL 13.7-17.5 L 410) HEMATOCRIT (BEAKER) (test code = 37.2 % 40.1-51.0 L 411) MEAN CORPUSCULAR VOLUME (BEAKER) 98.7 fL 79.0-92.2 H (test code = 753) MEAN CORPUSCULAR HEMOGLOBIN 33.7 pg 25.7-32.2 H (BEAKER) (test code = 751) MEAN CORPUSCULAR HEMOGLOBIN CONC 34.1 GM/DL 32.3-36.5 (BEAKER) (test code = 752) RED CELL DISTRIBUTION WIDTH 16.1 % 11.6-14.4 H (BEAKER) (test code = 412) PLATELET COUNT (BEAKER) (test 190 K/CU MM 150-450 code = 756) MEAN PLATELET VOLUME (BEAKER) 10.9 fL 9.4-12.4 (test code = 754) NUCLEATED RED BLOOD CELLS 0 /100 WBC 0-0 (BEAKER) (test code = 413) [id number] 17:34:00 Test Item Value Reference Range Interpretation Comments ACTIVATED CLOTTING TIME 153 sec TEST ED AT [place] [address] (BEAKER) (test code = WILFRID Bryant [facility] 441) [id number] 13:16:00 Test Item Value Reference Range Interpretation Comments ACTIVATED CLOTTING TIME 307 sec TEST ED AT [place] [address] (BEAKER) (test code = TRISHAOK Manny [facility] 441) [id number] 05:18:00 Test Item Value Reference Range Interpretation Comments MAGNESIUM (BEAKER) (test code = 2.4 mg/dL 1.6-2.6 627) BASIC METABOLIC [id number] 05:18:00 Test Item Value Reference Range Interpretation Comments SODIUM (BEAKER) 139 meq/L 136-145 (test code = 381) POTASSIUM (BEAKER) 5.1 meq/L 3.5-5.1 (test code = 379) CHLORIDE (BEAKER) 103 meq/L 98-107 (test code = 382) CO2 (BEAKER) (test 28 meq/L 22-29 code = 355) BLOOD UREA NITROGEN 19 mg/dL 7-21 (BEAKER) (test code = 354) CREATININE (BEAKER) 0.82 mg/dL 0.57-1.25 (test code = 358) GLUCOSE RANDOM 138 mg/dL 70-105 H (BEAKER) (test code = 652) CALCIUM (BEAKER) 9.6 mg/dL 8.4-10.2 (test code = 697) EGFR (BEAKER) (test 96 mL/min/1.73 ESTIMA YFN GFR IS code = 1092) sq m NOT ACCURATE CREATININE CLEARANCE IN PREDICTING GLOMERULAR FILTRATION RATE . ESTIMATED GFR I S NOT APPLICABLE FOR DIALYSIS PATIEN TS. [id number] 05:40:00 Test Item Value Reference Range Interpretation Comments MAGNESIUM (BEAKER) (test code = 2.4 mg/dL 1.6-2.6 627) BASIC METABOLIC [id number] 05:40:00 Test Item Value Reference Range Interpretation Comments SODIUM (BEAKER) 137 meq/L 136-145 (test code = 381) POTASSIUM (BEAKER) 4.7 meq/L 3.5-5.1 (test code = 379) CHLORIDE (BEAKER) 104 meq/L 98-107 (test code = 382) CO2 (BEAKER) (test 24 meq/L 22-29 code = 355) BLOOD UREA NITROGEN 15 mg/dL 7-21 (BEAKER) (test code = 354) CREATININE (BEAKER) 0.79 mg/dL 0.57-1.25 (test code = 358) GLUCOSE RANDOM 154 mg/dL 70-105 H (BEAKER) (test code = 652) CALCIUM (BEAKER) 9.8 mg/dL 8.4-10.2 (test code = 697) EGFR (BEAKER) (test 100 mL/min/1.73 ESTIM ATED GFR IS code = 1092) sq m NOT ACCURATE CREATININE CLEARANCE IN PREDICTING GLOMERULAR FILTRATION RATE . ESTIMATED GFR I S NOT APPLICABLE FOR DIALYSIS PATIEN TS. CBC W/PLT COUNT & AUTO [id number] 05:14:00 Test Item Value Reference Range Interpretation Comments WHITE BLOOD CELL COUNT (BEAKER) 20.5 K/ L 3.5-10.5 H (test code = 775) RED BLOOD CELL COUNT (BEAKER) 4.06 M/ L 4.63-6.08 L (test code = 761) HEMOGLOBIN (BEAKER) (test code = 13.7 GM/DL 13.7-17.5 410) HEMATOCRIT (BEAKER) (test code = 39.0 % 40.1-51.0 L 411) MEAN CORPUSCULAR VOLUME (BEAKER) 96.1 fL 79.0-92.2 H (test code = 753) MEAN CORPUSCULAR HEMOGLOBIN 33.7 pg 25.7-32.2 H (BEAKER) (test code = 751) MEAN CORPUSCULAR HEMOGLOBIN CONC 35.1 GM/DL 32.3-36.5 (BEAKER) (test code = 752) RED CELL DISTRIBUTION WIDTH 15.8 % 11.6-14.4 H (BEAKER) (test code = 412) PLATELET COUNT (BEAKER) (test 267 K/CU MM 150-450 code = 756) MEAN PLATELET VOLUME (BEAKER) 11.0 fL 9.4-12.4 (test code = 754) NUCLEATED RED BLOOD CELLS 0 /100 WBC 0-0 (BEAKER) (test code = 413) NEUTROPHILS RELATIVE PERCENT 84 % (BEAKER) (test code = 429) LYMPHOCYTES RELATIVE PERCENT 11 % (BEAKER) (test code = 430) MONOCYTES RELATIVE PERCENT 4 % (BEAKER) (test code = 431) EOSINOPHILS RELATIVE PERCENT 0 % (BEAKER) (test code = 432) BASOPHILS RELATIVE PERCENT 0 % (BEAKER) (test code = 437) NEUTROPHILS ABSOLUTE COUNT 17.28 K/ L 1.78-5.38 H (BEAKER) (test code = 670) LYMPHOCYTES ABSOLUTE COUNT 2.32 K/ L 1.32-3.57 (BEAKER) (test code = 414) MONOCYTES ABSOLUTE COUNT (BEAKER) 0.71 K/ L 0.30-0.82 (test code = 415) EOSINOPHILS ABSOLUTE COUNT 0.00 K/ L 0.04-0.54 L (BEAKER) (test code = 416) BASOPHILS ABSOLUTE COUNT (BEAKER) 0.03 K/ L 0.01-0.08 (test code = 417) IMMATURE GRANULOCYTES-RELATIVE 1 % 0-1 PERCENT (BEAKER) (test code = 2801) CT, BRAIN, WITHOUT [id number] 21:01:00FINAL REPORT CT head without contrast 08/30/2017 8:59 PM CLINICAL HISTORY: Focalneuro deficit, new, fixed or worsening, >6 hoursLEFT [...] skull is intact. IMPRESSION: No intracranial hemorrhage ormass effect. If concern for acute pathology persists, further evaluation with MRI is recommended. Signed: Morro Jose Verified Date/Time: 08/30/2017 21:01:19 Reading Location: [facility] Reading Room HEMOGLOBIN [id number] 15:01:00 Test Item Value Reference Range Interpretation Comments HEMOGLOBIN A1C (BEAKER) (test code = 5.8 % 4.3-6.1 368) CBC W/PLT COUNT & AUTO [id number] 10:55:00 Test Item Value Reference Range Interpretation Comments WHITE BLOOD CELL COUNT (BEAKER) 13.1 K/ L 3.5-10.5 H (test code = 775) RED BLOOD CELL COUNT (BEAKER) 4.54 M/ L 4.63-6.08 L (test code = 761) HEMOGLOBIN (BEAKER) (test code = 13.3 GM/DL 13.7-17.5 L 410) HEMATOCRIT (BEAKER) (test code = 43.4 % 40.1-51.0 411) MEAN CORPUSCULAR VOLUME (BEAKER) 95.6 fL 79.0-92.2 H (test code = 753) MEAN CORPUSCULAR HEMOGLOBIN 29.3 pg 25.7-32.2 (BEAKER) (test code = 751) MEAN CORPUSCULAR HEMOGLOBIN CONC 30.6 GM/DL 32.3-36.5 L (BEAKER) (test code = 752) RED CELL DISTRIBUTION WIDTH 14.7 % 11.6-14.4 H (BEAKER) (test code = 412) PLATELET COUNT (BEAKER) (test 257 K/CU MM 150-450 code = 756) MEAN PLATELET VOLUME (BEAKER) 10.7 fL 9.4-12.4 (test code = 754) NUCLEATED RED BLOOD CELLS 0 /100 WBC 0-0 (BEAKER) (test code = 413) NEUTROPHILS RELATIVE PERCENT 86 % (BEAKER) (test code = 429) LYMPHOCYTES RELATIVE PERCENT 12 % (BEAKER) (test code = 430) MONOCYTES RELATIVE PERCENT 2 % (BEAKER) (test code = 431) EOSINOPHILS RELATIVE PERCENT 0 % (BEAKER) (test code = 432) BASOPHILS RELATIVE PERCENT 0 % (BEAKER) (test code = 437) NEUTROPHILS ABSOLUTE COUNT 11.18 K/ L 1.78-5.38 H (BEAKER) (test code = 670) LYMPHOCYTES ABSOLUTE COUNT 1.56 K/ L 1.32-3.57 (BEAKER) (test code = 414) MONOCYTES ABSOLUTE COUNT (BEAKER) 0.19 K/ L 0.30-0.82 L (test code = 415) EOSINOPHILS ABSOLUTE COUNT 0.00 K/ L 0.04-0.54 L (BEAKER) (test code = 416) BASOPHILS ABSOLUTE COUNT (BEAKER) 0.03 K/ L 0.01-0.08 (test code = 417) IMMATURE GRANULOCYTES-RELATIVE 1 % 0-1 PERCENT (BEAKER) (test code = 2801) [id number] 07:11:00 Test Item Value Reference Range Interpretation Comments MAGNESIUM (BEAKER) (test code = 2.1 mg/dL 1.6-2.6 627) BASIC METABOLIC [id number] 07:11:00 Test Item Value Reference Range Interpretation Comments SODIUM (BEAKER) 136 meq/L 136-145 (test code = 381) POTASSIUM (BEAKER) 4.3 meq/L 3.5-5.1 (test code = 379) CHLORIDE (BEAKER) 103 meq/L 98-107 (test code = 382) CO2 (BEAKER) (test 23 meq/L 22-29 code = 355) BLOOD UREA NITROGEN 13 mg/dL 7-21 (BEAKER) (test code = 354) CREATININE (BEAKER) 0.77 mg/dL 0.57-1.25 (test code = 358) GLUCOSE RANDOM 180 mg/dL 70-105 H (BEAKER) (test code = 652) CALCIUM (BEAKER) 9.6 mg/dL 8.4-10.2 (test code = 697) EGFR (BEAKER) (test 103 mL/min/1.73 ESTIM ATED GFR IS code = 1092) sq m NOT ACCURATE CREATININE CLEARANCE IN PREDICTING GLOMERULAR FILTRATION RATE . ESTIMATED GFR I S NOT APPLICABLE FOR DIALYSIS PATIEN TS. LIPID [id number] 07:11:00 Test Item Value Reference Range Interpretation Comments TRIGLYCERIDES (BEAKER) (test code = 64 mg/dL 540) CHOLESTEROL (BEAKER) (test code = 145 mg/dL 631) HDL CHOLESTEROL (BEAKER) (test code 43 mg/dL = 976) LDL CHOLESTEROL CALCULATED (BEAKER) 89 mg/dL (test code = 633) Triglyceride Reference Range: Low Risk <150 Borderline 150-199 High Risk 200-499 Very High Risk >=500Cholesterol Reference Range: Low Risk <200 Borderline 200-239 High Risk >240HDL Cholesterol Reference Range: Low Risk >=60 High Risk <40LDL Cholesterol Reference Range: Optimal <100 Near Optimal 100-129 Borderline 130-159 High 160-189 Very High >=190HEPATIC FUNCTION [id number] 07:11:00 Test Item Value Reference Range Interpretation Comments TOTAL PROTEIN (BEAKER) (test code = 6.8 gm/dL 6.0-8.3 770) ALBUMIN (BEAKER) (test code = 1145) 3.9 g/dL 3.5-5.0 BILIRUBIN TOTAL (BEAKER) (test code 0.4 mg/dL 0.2-1.2 = 377) BILIRUBIN DIRECT (BEAKER) (test 0.2 mg/dL 0.1-0.5 code = 706) ALKALINE PHOSPHATASE (BEAKER) (test 84 U/L 40-150 code = 346) AST (SGOT) (BEAKER) (test code = 15 U/L 5-34 353) ALT (SGPT) (BEAKER) (test code = 25 U/L 6-55 347) TROPONIN [id number] 01:07:00 Test Item Value Reference Range Interpretation Comments TROPONIN I (BEAKER) (test code = 397) < ng/mL 0.00-0.03 Troponin I (TnI) levels [...] neurological disease, and persistent tachyarrhythmia.CT, CHEST, WITH [id number] 21:13:00FINAL REPORT EXAM: CT of the chest, with [...] Within normal limits.AIRWAYS AND LUNGS: Patent central trac heobronchial tree. Right lower lobe calcified granuloma. Mild bibasilar subsegmental and discoid atelectasis. Elevated right hemidiaphragm.PLEURA: No pleural effusion or pneumothorax.VESSELS: Atheromatous changes of the aorta and branches. No thoracic aortic aneurysm.HEART: Normal heart size. No pericardial effusion.JASON AND MEDIASTINUM: Within normal limits.VISUALIZED UPPER ABDOMEN: Punctate nonobstructing right upper pole renal stone versus vascular calcification. Calcified splenic granulomas. Subcentimeter hypodensity in the hepatic dome too small to characterize.SOFT TISSUES: Within normal limits.BONES: Multilevel degenerative changes of the visualized spine. Healed fracture of the left lateral sixth rib. IMPRESSION:No thoracic mass or lymphadenopathy.Elevated right hemidiaphragm. Mild bibasilar subsegmental and discoid atelectasis. Signed: Cesia Andrade [facility] Verified Date/Time: 08/29/2017 21:13:13 Reading Location: [address] Transitional Reading Room URINALYSIS W/ MICROSCOPIC 2017-08-29 15:40:00 Test Item Value Reference Range Interpretation Comments COLOR (BEAKER) (test code Yellow = 470) CLARITY (BEAKER) (test Clear code = 469) SPECIFIC GRAVITY UA 1.012 1.001-1.035 (BEAKER) (test code = 468) PH UA (BEAKER) (test code 6.5 5.0-8.0 = 467) PROTEIN UA (BEAKER) (test Negative Negative code = 464) GLUCOSE UA (BEAKER) (test Negative Negative code = 365) KETONES UA (BEAKER) (test Negative Negative code = 371) BILIRUBIN UA (BEAKER) Negative Negative (test code = 462) BLOOD UA (BEAKER) (test Negative Negative code = 461) NITRITE UA (BEAKER) (test Negative Negative code = 465) LEUKOCYTE ESTERASE UA Negative Negative (BEAKER) (test code = 466) UROBILINOGEN UA (BEAKER) 0.2 mg/dL 0.2-1.0 (test code = 463) RBC UA (BEAKER) (test code 1 /HPF = 519) WBC UA (BEAKER) (test code < /HPF = 520) MUCUS (BEAKER) (test code Rare = 1574) SOURCE(BEAKER) (test code Urine, Clean Catch = 2795) CREATINE KINASE (CK), TOTAL AND [id number] 15:34:00 Test Item Value Reference Range Interpretation Comments CREATINE KINASE TOTAL (BEAKER) 72 U/L 29-200 (test code = 380) CREATINE KINASE-MB (BEAKER) (test 1.4 ng/mL 0.0-6.6 code = 750) CREATINE KINASE-MB INDEX (BEAKER) 1.9 % (test code = 395) CK-MB Reference Range:<6.7 Normal6.7-10.0 Borderline>10.0 AbnormalTROPONIN [id number] 15:34:00 Test Item Value Reference Range Interpretation Comments TROPONIN I (BEAKER) (test code = 397) < ng/mL 0.00-0.03 Troponin I (TnI) levels [...] disease, and persistent tachyarrhythmia.B-TYPE NATRIURETIC FACTOR (BNP) 2017-08-29 15:34:00 Test Item Value Reference Range Interpretation Comments B-TYPE NATRIURETIC PEPTIDE (BEAKER) 18 pg/mL 0-100 (test code = 700) [id number] 15:33:00 Test Item Value Reference Range Interpretation Comments PROTIME (BEAKER) (test code = 14.0 seconds 11.7-14.7 759) INR (BEAKER) (test code = 370) 1.1 <=5.9 PARTIAL THROMBOPLASTIN TIME 30.4 seconds 22.5-36.0 (BEAKER) (test code = 760) RECOMMENDED COUMADIN/WARFARIN INR THERAPY RANGESSTANDARD DOSE: 2.0 - 3.0 Includes: PROPHYLAXIS for venous thrombosis, systemic embolization; TREATMENT for venous thrombosis and/or pulmonary embolus.HIGH RISK: Target INR is 2.5-3.5 for patients with mechanical heart valves.[id number] 15:27:00 Test Item Value Reference Range Interpretation Comments MAGNESIUM (BEAKER) (test code = 2.1 mg/dL 1.6-2.6 627) BASIC METABOLIC [id number] 15:27:00 Test Item Value Reference Range Interpretation Comments SODIUM (BEAKER) 139 meq/L 136-145 (test code = 381) POTASSIUM (BEAKER) 4.3 meq/L 3.5-5.1 (test code = 379) CHLORIDE (BEAKER) 103 meq/L 98-107 (test code = 382) CO2 (BEAKER) (test 29 meq/L 22-29 code = 355) BLOOD UREA NITROGEN 11 mg/dL 7-21 (BEAKER) (test code = 354) CREATININE (BEAKER) 0.83 mg/dL 0.57-1.25 (test code = 358) GLUCOSE RANDOM 104 mg/dL 70-105 (BEAKER) (test code = 652) CALCIUM (BEAKER) 9.7 mg/dL 8.4-10.2 (test code = 697) EGFR (BEAKER) (test 95 mL/min/1.73 ESTIMA YFN GFR IS code = 1092) sq m NOT ACCURATE CREATININE CLEARANCE IN PREDICTING GLOMERULAR FILTRATION RATE . ESTIMATED GFR I S NOT APPLICABLE FOR DIALYSIS PATIEN TS. CBC W/PLT COUNT & AUTO [id number] 15:20:00 Test Item Value Reference Range Interpretation Comments WHITE BLOOD CELL COUNT (BEAKER) 13.2 K/ L 3.5-10.5 H (test code = 775) RED BLOOD CELL COUNT (BEAKER) 4.42 M/ L 4.63-6.08 L (test code = 761) HEMOGLOBIN (BEAKER) (test code = 13.6 GM/DL 13.7-17.5 L 410) HEMATOCRIT (BEAKER) (test code = 42.3 % 40.1-51.0 411) MEAN CORPUSCULAR VOLUME (BEAKER) 95.7 fL 79.0-92.2 H (test code = 753) MEAN CORPUSCULAR HEMOGLOBIN 30.8 pg 25.7-32.2 (BEAKER) (test code = 751) MEAN CORPUSCULAR HEMOGLOBIN CONC 32.2 GM/DL 32.3-36.5 L (BEAKER) (test code = 752) RED CELL DISTRIBUTION WIDTH 14.5 % 11.6-14.4 H (BEAKER) (test code = 412) PLATELET COUNT (BEAKER) (test 290 K/CU MM 150-450 code = 756) MEAN PLATELET VOLUME (BEAKER) 10.2 fL 9.4-12.4 (test code = 754) NUCLEATED RED BLOOD CELLS 0 /100 WBC 0-0 (BEAKER) (test code = 413) NEUTROPHILS RELATIVE PERCENT 68 % (BEAKER) (test code = 429) LYMPHOCYTES RELATIVE PERCENT 23 % (BEAKER) (test code = 430) MONOCYTES RELATIVE PERCENT 6 % (BEAKER) (test code = 431) EOSINOPHILS RELATIVE PERCENT 2 % (BEAKER) (test code = 432) BASOPHILS RELATIVE PERCENT 1 % (BEAKER) (test code = 437) NEUTROPHILS ABSOLUTE COUNT 8.95 K/ L 1.78-5.38 H (BEAKER) (test code = 670) LYMPHOCYTES ABSOLUTE COUNT 3.04 K/ L 1.32-3.57 (BEAKER) (test code = 414) MONOCYTES ABSOLUTE COUNT (BEAKER) 0.82 K/ L 0.30-0.82 (test code = 415) EOSINOPHILS ABSOLUTE COUNT 0.22 K/ L 0.04-0.54 (BEAKER) (test code = 416) BASOPHILS ABSOLUTE COUNT (BEAKER) 0.08 K/ L 0.01-0.08 (test code = 417) IMMATURE GRANULOCYTES-RELATIVE 0 % 0-1 PERCENT (BEAKER) (test code = 2801) RAD, CHEST, 1 VIEW, NON [id number] 15:03:00Reason for exam:->SHORTNESS OF BREATHReason for exam:->DIZZINESSReason for exam:->NUMBNESSFINAL REPORT INDICATION: SHORTNESS OF BREATHDIZZINESSNUMBNESS COMPARISON: 2014 TECHNIQUE: Chest radiograph, single view, portable technique. FINDINGS / IMPRESSION: There are diffuse faint interstitial opacities, suspicious for interstitial edema or atypical pneumonia. There is a questionable left hilar mass. Moderate elevation the right hemidiaphragm is unchanged. No pneumothorax. Osseous structures unremarkable. Chest CT with intravenous contrast is recommended for further evaluation of the left hilum. Signed: Adonay Lewis [facility] Verified Date/Time: 08/29/2017 15:03:26 Reading Location: [facility] Mammo Reading Room
[2022-12-31 16:10] LABS: Absolute Lymphocytes (CBC) 2.2 K/uL (0.7-4.9); Hematocrit 46.8 % (39.6-49.0); Lymphocytes % 22.2 % (15.3-44.8); MCV 94.6 fL (80-100); MPV 8.8 fL (7.6-11.3); Platelets 200 thou/uL (152-406); RBC Red Blood Cell Count 4.95 M/uL (4.33-5.43)
[2022-12-31 16:35] LABS: Albumin 3.6 g/dL (3.4-5.0); Bilirubin Total 0.4 mg/dL (0.2-1.0); Protein, Total 7.3 g/dL (6.4-8.2)
[2022-12-31 16:50] LABS: Specific Gravity 1.009 (1.005-1.030); Urine Bacteria None Seen /HPF (<20); Urine Bilirubin NEGATIVE (Negative); Urine Blood 3+ (OVER) (Negative); Urine Clarity Extremely Turbid (Clear); Urine Color Light-Brown (Yellow); Urine Glucose NEGATIVE (Negative); Urine Protein NEGATIVE (Negative); Urine RBC >50 /HPF (None Seen); Urine Urobilinogen Normal (Normal)
[2022-12-31] MEDS ORDERED: ONDANSETRON 4 MG/2 ML VIAL ONE (16:59)
[2022-12-31] MEDS ORDERED: TAMSULOSIN 0.4 MG SR CAP ONE (16:59)
[2022-12-31] MEDS ORDERED: MORPHINE 4 MG/ML SYR ONE (16:59)
[2022-12-31] MEDS ORDERED: KETOROLAC 30 MG/ML INJ ONE (16:59)
[2022-12-31] MEDS ORDERED: NA CHLORIDE 0.9% 1,000 ML ONE (17:00)
--- NOTE | 2022-12-31 18:30 | RAD REPORT ---
EXAM DESCRIPTION: CT - Abdomen Pelvis W Contrast - 12/31/2022 5:54 pm CLINICAL HISTORY: Abdominal pain/right flank pain COMPARISON: 2016 TECHNIQUE: Computed axial tomography of the abdomen pelvis was obtained. 100 cc [id number] was admin istered intravenously. Oral contrast was not requested which limits evaluation of bowel and appendix All CT scans are performed using dose optimization technique as appropriate and may include automated exposure control or mA/KV adjustment according to patient size. FINDINGS: Mild chronic atelectasis right lung base Small hepatic cysts. Probable sludge/small gallstones. No gallbladder wall thickening The spleen, pancreas and adrenals unremarkable. Left renal calculus. No hydronephrosis. 5.6 centimeter left renal cyst. 10 millimeter calculus left renal pelvis. Mild left hydronephrosis. Mild stranding within the central mesentery indicative of a mild mesenteritis No evidence diverticulitis. Marked sclerosis involving the inferior aspect L1 vertebral body and superior aspect L2 vertebral bod y 3.3 centimeter distal abdominal aortic aneurysm IMPRESSION: 10 millimeter calculus left renal pelvis with mild left hydronephrosis Probable sludge small/ gallstones. No evidence of cholecystitis Marked sclerosis involving the inferior aspect L1 vertebral body and superior aspect L2 vertebral bod y. This probably is degenerative nature. Infection/inflammation can also have this opinion and should be correlated clinically and with appropriate lab values 3.3 centimeter distal abdominal aortic aneurysm
--- NOTE | 2022-12-31 18:45 | EDPHYS ---
Physician Documentation [facility] Name: Claudio Vasquez Age: 67 yrs Sex: Male : 1955 Arrival Date: 12/31/2022 Time: 15:28 Bed 9 Private MD: ED Physician Nnamdi Green HPI: 12/31 16:38 This 67 yrs old Male presents to ER via Ambulatory with complaints of flank pain, sb4 hematuria. 16:39 The patient complains of pain in the right low back. The pain radiates to the right sb4 lower quadrant. Onset: The symptoms/episode began/occurred yesterday. Modifying factors: The symptoms are alleviated by nothing. the symptoms are aggravated by nothing. Associated signs and symptoms: Pertinent positives: hematuria, Pertinent negatives: dysuria, urinary frequency, nausea, vomiting. The patient has experienced similar episodes in the past, a few times, today's symptoms are similar. The patient has not recently seen a physician. Historical: - Allergies: 15:51 NKA; ld1 - PMHx: 15:51 COPD; Hypertension; Myocardial infarction; ld1 - PSHx: 15:51 Appendectomy; Lithotripsy; ld1 - Immunization history:: Adult Immunizations up to date, Client reports receiving the 2nd dose of the Covid vaccine. - Social history:: Smoking status: Patient reports the use of cigarette tobacco products, smokes one-half pack cigarettes per day, Patient/guardian denies using alcohol. ROS: 16:39 Constitutional: Negative for fever, chills, and weight loss, sb4 16:39 Back: Positive for flank pain, on the right, 16:39 : Positive for hematuria, 16:39 All other systems are negative, sb4 Exam: 16:39 Head/Face: Normocephalic, atraumatic. Eyes: Extra-ocular motions intact. Periorbital sb4 areas with no swelling, redness, or edema. ENT: Mucous membranes moist. Cardiovascular: Regular rate and rhythm with a normal S1 and S2. Respiratory: Lungs have equal breath sounds bilaterally, clear to auscultation and percussion. No rales, rhonchi or wheezes noted. No increased work of breathing, no retractions or nasal flaring. Abdomen/GI: Soft, non-tender, no distension. Skin: Warm, dry with normal turgor. Normal color with no rashes, no lesions, and no evidence of cellulitis. MS/ Extremity: Pulses equal, no cyanosis. Neurovascular intact. Full, normal range of motion. Neuro: Awake and alert, GCS 15, oriented to person, place, time, and situation. Motor strength 5/5 in all extremities. Sensory grossly intact. 16:39 Constitutional: The patient appears in no acute distress, alert, awake, obese, 16:39 Back: CVA tenderness, that is mild, is noted on the right, Vital Signs: 15:48 BP 188 / 80; Pulse 81; Resp 20; Temp 99.1; Pulse Ox 95% ; Weight 142.88 kg; Height 5 ld1 ft. 10 in. ; Pain 4/10; 17:13 BP 150 / 102; Pulse 76; Resp 19; Pulse Ox 99% on R/A; kd3 19:02 BP 145 / 84; Pulse 74; Resp 16; Pulse Ox 97% on R/A; kd3 15:48 Body Mass Index 45.20 (142.88 kg, 177.8 cm) ld1 15:48 Pain Scale: Adult ld1 MDM: 15:53 Patient medically screened. sb4 16:39 Differential diagnosis: nephrolithiasis, pyelonephritis, UTI. sb4 18:43 Data reviewed: vital signs, nurses notes, lab test result(s), radiologic studies, I sb4 have discussed the patient's presentation/case with the attending Emergency Department Physician; and as a result, I will discharge patient. Consideration of Admission/Observation Escalation of care including admission/observation considered. Counseling: I had a detailed discussion with the patient and/or guardian regarding the historical points, exam findings, and any diagnostic results supporting the discharge/admit diagnosis, the presence of at least one elevated blood pressure reading (>120/80) during this emergency department visit, lab results, radiology results, the need for outpatient follow up, a urologist, to return to the emergency department if symptoms worsen or persist or if there are any questions or concerns that arise at home. 12/31 15:54 Order name: CBC with Diff; Complete Time: 16:13 ld1 12/31 15:54 Order name: CMP; Complete Time: 16:36 ld1 12/31 15:54 Order name: Lipase; Complete Time: 16:36 ld1 12/31 15:54 Order name: Urinalysis w/ reflexes; Complete Time: 16:54 ld1 12/31 16:56 Order name: Urine Culture EDMS 12/31 15:58 Order name: CT Abd/Pelvis - IV Contrast Only; Complete Time: 18:33 sb4 12/31 15:54 Order name: IV Saline Lock; Complete Time: 15:58 ld1 12/31 15:54 Order name: Labs collected and sent; Complete Time: 15:58 ld1 Administered Medications: 17:13 Drug: NS 0.9% IV 1000 ml IV at 1 bolus Per protocol; 1000 mL bolus Route: IV; Rate: 1 kd3 bolus; Site: right antecubital; 19:01 Follow up: IV Status: Completed infusion; IV Intake: 1000ml kd3 17:13 Drug: Ketorolac IVP 15 mg IVP once Route: IVP; Site: right antecubital; kd3 19:02 Follow up: Response: No adverse reaction; Pain is decreased kd3 17:13 Drug: morphine IVP or IV 4 mg IVP once over 4 mins Route: IVP; Infused Over: 4 mins; kd3 Site: right antecubital; 19:02 Follow up: Response: No adverse reaction kd3 17:13 Drug: Ondansetron IVP 4 mg IVP once; over 2 minutes Route: IVP; Site: right antecubital;kd3 19:01 Follow up: Response: No adverse reaction; Nausea is decreased kd3 17:13 Drug: Flomax PO 0.4 mg PO once Route: PO; kd3 19:01 Follow up: Response: No adverse reaction kd3 19:01 Drug: HYDROcodone-acetaminophen PO 5 mg-325 mg 2 tabs PO once Route: PO; kd3 19:01 Follow up: Response: No adverse reaction; Pain is decreased kd3 Disposition Summary: 12/31/22 18:44 Discharge Ordered Notes: Location: Home sb4 Problem: new sb4 Symptoms: are unchanged sb4 Condition: Stable sb4 Diagnosis - Calculus of kidney sb4 Followup: sb4 - With: Mitch Valencia MD - When: 1 - 2 days - Reason: Recheck today's complaints, Re-evaluation by your physician Discharge Instructions: - Discharge Summary Sheet sb4 - Kidney Stones sb4 Forms: - Medication Reconciliation Form sb4 - Thank You Letter sb4 - Antibiotic Education sb4 - Prescription Opioid Use sb4 - Patient Portal Instructions sb4 - Leadership Thank You Letter sb4 Prescriptions: - acetaminophen-codeine 300-30 mg Oral tablet - take 1 tablet ORAL route every 6 hours as needed for pain; 12 tablet; Refills: sb4 0, Product Selection Permitted - tamsulosin 0.4 mg Oral capsule - take 1 capsule ORAL route every day at bedtime; 10 capsule; Refills: 0, Product sb4 Selection Permitted Signatures: Dispatcher [employer] EDFlorecita Victoria RN RN ld1 Sravani Westfall RN RN kd3 Minnie Salcedo, PAMihaela PAMihaela sb4 Corrections: (The following items were deleted from the chart) 15:52 15:51 PMHx: CHF; ld1 ld1
--- NOTE | 2022-12-31 18:45 | ER ---
Nurse's Notes [facility] Name: Claudio Vasquez Age: 67 yrs Sex: Male : 1955 Arrival Date: 12/31/2022 Time: 15:28 Bed 9 Private MD: Diagnosis: Calculus of kidney Presentation: 12/31 15:48 Chief complaint: Patient states: right sided back pain. Since yesterday has had blood ld1 in urine. Nausea. History of kidney stones. Coronavirus screen: Vaccine status: Patient reports receiving the 2nd dose of the covid vaccine. Client denies travel out of the [place] in the last 14 days. Client indicates they have traveled out of the [place] in the last 14 days. At this time, unable to obtain information related to travel outside the [place] Ebola Screen: Patient negative for fever greater than or equal to 101.5 degrees Fahrenheit, and additional compatible Ebola Virus Disease symptoms Patient denies exposure to infectious person. Patient denies travel to an Ebola-affected area in the 21 days before illness onset. No symptoms or risks identified at this time. Initial Sepsis Screen: Does the patient meet any 2 criteria? No. Patient's initial sepsis screen is negative. Does the patient have a suspected source of infection? No. Patient's initial sepsis screen is negative. Risk Assessment: Do you want to hurt yourself or someone else? Patient reports no desire to harm self or others. Onset of symptoms was December 30, 2022 at 16:00. 15:48 Method Of Arrival: Ambulatory ld1 15:48 Acuity: MILLIE 3 ld1 Triage Assessment: 15:51 General: Appears uncomfortable, Behavior is calm, cooperative, appropriate for age. ld1 Pain: Complains of pain in back. Musculoskeletal: Capillary refill < 3 seconds. 15:54 Neuro: Level of Consciousness is awake, alert, obeys commands, Oriented to person, ld1 place, time, situation, Appropriate for age. Respiratory: Respiratory effort is even, unlabored, Respiratory pattern is regular, symmetrical. : Urine is keshav blood, Reports pain flank(s), blood in urine. Historical: - Allergies: 15:51 NKA; ld1 - PMHx: 15:51 COPD; Hypertension; Myocardial infarction; ld1 - PSHx: 15:51 Appendectomy; Lithotripsy; ld1 - Immunization history:: Adult Immunizations up to date, Client reports receiving the 2nd dose of the Covid vaccine. - Social history:: Smoking status: Patient reports the use of cigarette tobacco products, smokes one-half pack cigarettes per day, Patient/guardian denies using alcohol. Screenin:03 [facility] ED Fall Risk Assessment (Adult) History of falling in the last 3 months, kd3 including since admission No falls in past 3 months (0 pts) Confusion or Disorientation No (0 pts) Intoxicated or Sedated No (0 pts) Impaired Gait No (0 pts) Mobility Assist Device Used No (0 pt) Altered Elimination No (0 pt) Score/Fall Risk Level 0 - 2 = Low Risk Maintained a safe environment. Abuse screen: Denies threats or abuse. Denies injuries from another. Nutritional screening: No deficits noted. Tuberculosis screening: No symptoms or risk factors identified. Assessment: 17:14 General: Appears uncomfortable. Pain: Complains of pain in right low back. Neuro: Level kd3 of Consciousness is awake, alert, obeys commands, Oriented to person, place, time, situation. Vital Signs: 15:48 BP 188 / 80; Pulse 81; Resp 20; Temp 99.1; Pulse Ox 95% ; Weight 142.88 kg; Height 5 ld1 ft. 10 in. ; Pain 4/10; 17:13 BP 150 / 102; Pulse 76; Resp 19; Pulse Ox 99% on R/A; kd3 19:02 BP 145 / 84; Pulse 74; Resp 16; Pulse Ox 97% on R/A; kd3 15:48 Body Mass Index 45.20 (142.88 kg, 177.8 cm) ld1 15:48 Pain Scale: Adult ld1 ED Course: 15:32 Patient arrived in ED. ts1 15:51 Triage completed. ld1 15:51 Arm band placed on right wrist. ld1 15:53 Minnie Salcedo PA-C is PHCP. sb4 15:53 Nnamdi Green MD is Attending Physician. sb4 15:57 Inserted saline lock: 20 gauge in right antecubital area, using aseptic technique. ld1 16:01 CBC with Diff Sent. kd3 16:01 CMP Sent. kd3 16:01 Lipase Sent. kd3 16:40 Malou, Sravani, RN is Primary Nurse. kd3 17:56 CT Abd/Pelvis - IV Contrast Only In Process Unspecified. EDMS 18:43 Mitch Valencia MD is Referral Physician. sb4 19:03 No provider procedures requiring assistance completed. IV discontinued, intact, kd3 bleeding controlled, No redness/swelling at site. Pressure dressing applied. 19:04 Patient has correct armband on for positive identification. Provided Education on: . kd3 Administered Medications: 17:13 Drug: NS 0.9% IV 1000 ml IV at 1 bolus Per protocol; 1000 mL bolus Route: IV; Rate: 1 kd3 bolus; Site: right antecubital; 19:01 Follow up: IV Status: Completed infusion; IV Intake: 1000ml kd3 17:13 Drug: Ketorolac IVP 15 mg IVP once Route: IVP; Site: right antecubital; kd3 19:02 Follow up: Response: No adverse reaction; Pain is decreased kd3 17:13 Drug: morphine IVP or IV 4 mg IVP once over 4 mins Route: IVP; Infused Over: 4 mins; kd3 Site: right antecubital; 19:02 Follow up: Response: No adverse reaction kd3 17:13 Drug: Ondansetron IVP 4 mg IVP once; over 2 minutes Route: IVP; Site: right antecubital;kd3 19:01 Follow up: Response: No adverse reaction; Nausea is decreased kd3 17:13 Drug: Flomax PO 0.4 mg PO once Route: PO; kd3 19:01 Follow up: Response: No adverse reaction kd3 19:01 Drug: HYDROcodone-acetaminophen PO 5 mg-325 mg 2 tabs PO once Route: PO; kd3 19:01 Follow up: Response: No adverse reaction; Pain is decreased kd3 Medication: 19:04 VIS not applicable for this client. kd3 Intake: 19:01 IV: 1000ml; Total: 1000ml. kd3 Outcome: 18:44 Discharge ordered by . sb4 19:03 Discharged to home ambulatory, kd3 19:03 Condition: stable 19:03 Discharge instructions given to patient, Instructed on discharge instructions, follow up and referral plans. Demonstrated understanding of instructions, follow-up care, Prescriptions given X 2, 19:04 Patient left the ED. kd3 Signatures: Dispatcher [employer] EDPA Florecita Montiel RN RN ld1 Sravani Westfall RN RN kd3 Minnie Salcedo, CLEMENTE PAJorgeC sb4 Cynthia Her PAS PAS ts1 Corrections: (The following items were deleted from the chart) 15:52 15:51 PMHx: CHF; ld1 ld1
[2022-12-31] MEDS ORDERED: HYDROCODONE/APAP 5/325 MG TAB ONE (19:09)
[2022-12-31 19:35] VITALS: TEMP 99.1
[2022-12-31 19:46] VITALS: BP 145/84; O2SAT 97
== END 2022-12-31 19:04 | disposition home or self-care (01) ==
LOC: ER 15:28
DX: N20.0 Calculus of kidney (principal); I10 Essential (primary) hypertension; J44.9 Chronic obstructive pulmonary disease, unspecified; F17.210 Nicotine dependence, cigarettes, uncomplicated
CPT/HCPCS: 96361; 85025; 81001; 87086; 36415; 83690; 80053; 74177; 96375; 96374; 99284; Q9967; J2405; J7030; 87088

== ENCOUNTER 2023-01-06 09:33 | Emergency (ER) | payer OTHER ==
--- OUTSIDE RECORDS SUMMARY | 2023-01-06 09:37 | XMS REPORT | Continuity of Care Document ---
:1955 Author Organization [facility] t Address [address] [facility] [address] [place] [address] Care Team Providers Name Role Phone Asked, No Pcp Primary Care Physician Unavailable Doctor Unassigned, [place] Attending Clinician Unavailable Edgar Allred MD Attending Clinician ELIE LOW Attending Clinician Unavailable HORACIO DELCID Attending Clinician Unavailable ELIE LOW Admitting Clinician Unavailable HORACIO DELCID Admitting Clinician Unavailable Payers Payer Name Policy Type Policy Number Effective Date Expiration Date S ource Problems Condition Condition Condition Status Onset Resolution Last Treating Co mments Source Name Details Category Date Date Treatment Clinician Date Rupture of Rupture of Disease Active 2018-0 U nivers right right 3-25 ity of Achilles Achilles 00:00: [place] tendon, tendon, 00 Medical subsequent subsequent Br anch encounter encounter Peripheral Peripheral Disease Recurre [facility] vascular vascular nce 8-14 [facility] disease, disease, 00:00: Medica l unspecifie unspecifie 00 Ce nter d d Left leg Left leg Disease Recurre 2017-[address] [facility] claudicati claudicati nce 8-14 Rekha kes on on 00:00: Medical 00 Center [place] Disease Active 2017- [facility] (dyspnea (dyspnea 6-25 [facility] on on 00:00: Medical exertion) exertion) 00 Cent er Hyperchole Hyperchole Disease Active U nivers sterolemia sterolemia -31 it y of 00:00: [place] 00 Medical Branch CAD CAD Disease Active Univers (coronary (coronary 04-06 ity of artery artery 00:00: [place] disease) disease) 00 Medica l Branch PVD PVD Disease Active Univers (periphera (periphera 04-06 it [place] of l vascular l vascular [place] disease[place] disease[place] 00 Medica l Branch Essential Essential Disease Active Uni vers hypertensi hypertensi 04-06 it y of on on 00:00: [place] 00 Medical Branch PVD PVD Disease Active [facility] (periphera (periphera 4-07 Rekha kes l vascular l vascular 00:00: Me dical disease) disease) 00 Center with with claudbetty claudicati on on Depressive Depressive Disease Active [facility] disorder, disorder, 4-06 [facility] s not not 00:00: Medical elsewhere elsewhere 00 Cent er classified classified Hemorrhage Hemorrhage Disease Active [facility] of of 406 [facility] gastrointe gastrointe 00:00: Me dical stinal stinal 00 Center tract, tract, unspecifie unspecifie d d 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 [facility]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 4-06 Rekha kes infarction infarction 00:00: Me dical 00 Center Obstructiv Obstructiv Disease Active [facility] e sleep e sleep 4-06 [facility] apnea apnea 00:00: Medical (adult) (adult) 00 Center (pediatric (pediatric ) ) 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 4-06 [facility] branch branch 00:00: Medical block block 00 Center Morbid Morbid Disease Active [facility] obesity obesity 4-06 [facility] 00:00: Medical 00 Center Essential Essential [...] Date Stop Date Source Natural brother Hypertension [facility] Natural father Cancer [facility] Natural father Diabetes [facility] Natural mother Coronary artery disease [facility] Natural mother Hyperlipidemia [facility] Natural mother Hypertension [facility] Natural mother Peripheral vascular [facility] disease [facility] Natural mother Stroke [facility] Natural sister Cancer [facility] Social History Social Habit Start Date Stop Date Quantity Comments Source History of tobacco Cigarette Smoker [facility] use [facility] Alcohol intake 2017-10-19 2017-10-19 Current [facility] 00:00:00 00:00:00 non-drinker of Medical nter alcohol (finding) Cigarette 2017-10-18 2017-10-18 [facility] pack-years 00:00:00 00:00:00 [facility] Tobacco Comment 2017-10-18 2017-10-18 quit 4 weeks [facility] 00:00:00 00:00:00 [facility] Cigarettes smoked 2016-04-06 2016-04-06 Univers ity of current (pack per 00:00:00 00:00:00 ) - Reported Branch Tobacco use and 2016-04-06 2016-04-06 Never used Universit y of exposure 00:00:00 00:00:00 [facility] Sex Ass[birth year] At [birth year] [facility] 00:00:00 00:00:00 [facility] Smoking Status Start Date Stop Date Source Tobacco smoking [facility] consumption unknown Ex-smoker 2017-10-18 00:00:00 2017-10-18 [facility] 00:00:00 Deputy Current every day smoker 2016-04-06 00:00:00 Uni versity of [facility] Medications Ordered Filled Start Stop Current Ordering Indication Dosage Frequency Signature Comments Components Source Medication Medication Date Date Medication? Clinician (SIG) Name Name diclofenac Yes 75mg Take 1 Unive rs 75 mg EC 8-06 tablet by ity of tablet 00:00: mouth 2 [place] 00 (two) Medical times Branch daily with meals. diclofenac 2019-0 Yes 75mg Take 1 Unive rs 75 mg EC 8-06 tablet by ity of tablet 00:00: mouth 2 [place] (two) Medical times Branch daily with meals. diclofenac 2019-0 Yes 75mg Take 1 Unive rs 75 mg EC 8-06 tablet by ity of tablet 00:00: mouth 2 [place] 00 (two) Medical times Branch daily with meals. diclofenac 2019-0 Yes 75mg Take 1 Unive rs 75 mg EC 8-06 tablet by ity of tablet 00:00: mouth 2 [place] (two) Medical times Branch daily with meals. diclofenac 2019-0 Yes 75mg Take 1 Unive rs 75 mg EC 8-06 tablet by ity of tablet 00:00: mouth 2 [place] (two) Medical times Branch daily with meals. prasugrel 0 Yes 10mg Take 10 mg Un rosa elena (EFFIENT) 1-09 by mouth ity of 10 mg 19:09: daily. [place] [address] Medical Branch metoprolol 2018-0 Yes 100mg Take 100 Un rosa leena succinate 1-09 mg by ity of XL 100 mg 19:09: mouth [place] 24 hr daily. Medical tablet Branch simvastatin 2018-0 Yes 40mg Take 40 mg Univers 40 mg 09 by mouth ity of tablet 19:09: at [place] [address] bedtime. Medical Branch aspirin 81 2018-0 Yes 81mg Take 81 mg U nivers mg EC 09 by mouth. ity of tablet 19:09: [place] [address] Medical Branch fluticasone 2019-0 Yes 1{puff} Inhale 1 Univers -vilanterol 1-09 Puff. ity of (BREO 19:09: [place] [address] Medical 100-25 Branch mcg/dose DsDv prasugrel 2019-0 Yes 10mg Take 10 mg Un rosa elena (EFFIENT) 1-09 by mouth ity of 10 mg 19:09: daily. [place] [address] Medical Branch metoprolol 2018-0 Yes 100mg Take 100 Un rosa [place]ena succinate 1-09 mg by ity of XL 100 mg 19:09: mouth [place] 24 hr daily. Medical tablet Branch simvastatin 2019-0 Yes 40mg Take 40 mg Univers 40 mg 1-09 by mouth ity of tablet 19:09: at [place] [address] bedtime. Medical Branch aspirin 81 Yes 81mg Take 81 mg U nivers mg EC 1-09 by mouth. ity of tablet 19:09: [place] [address] Medical [place] fluticasone 0 Yes 1{puff} Inhale 1 Univers -vilanterol 1-09 Puff. ity of (BREO 19:09: [place] [address] Medical 100-25 Branch mcg/dose DsDv prasugrel 0 Yes 10mg Take 10 mg Un rosa elena (EFFIENT) 1-09 by mouth ity of 10 mg 19:09: daily. [place] [address] Medical Branch metoprolol Yes 100mg Take 100 Un rosa elena succinate 1-09 mg by ity of XL 100 mg 19:09: mouth [place] 24 hr daily. Medical tablet Branch simvastatin Yes 40mg Take 40 mg Univers 40 mg 1-09 by mouth ity of tablet 19:09: at [place] [address] bedtime. Medical Branch aspirin 81 Yes 81mg Take 81 mg U nivers mg EC 1-09 by mouth. ity of tablet 19:09: [address] fluticasone Yes 1{puff} Inhale 1 Univers -vilanterol 1-09 Puff. ity of (BREO 19:09: [address] [address] Branch mcg/dose DsDv prasugrel 0 Yes 10mg Take 10 mg Un rosa elena (EFFIENT) 1-09 by mouth ity of 10 mg 19:09: daily. [place] [address] Medical Branch metoprolol Yes 100mg Take 100 Un rosa elena succinate 1-09 mg by ity of XL 100 mg 19:09: mouth [place] 24 hr daily. Medical tablet Branch simvastatin 0 Yes 40mg Take 40 mg Univers 40 mg 1-09 by mouth ity of tablet 19:09: at [place] [address] bedtime. Medical Branch aspirin 81 0 Yes 81mg Take 81 mg U nivers mg EC 1-09 by mouth. ity of tablet 19:09: [address] fluticasone 0 Yes 1{puff} Inhale 1 Univers -vilanterol 1-09 Puff. ity of (BREO 19:09: [place] [address] Medical [address] Branch mcg/dose DsDv prasugrel 0 Yes 10mg Take 10 mg Un rosa elena (EFFIENT) 1-09 by mouth ity of 10 mg 19:09: daily. [place] [address] Medical Branch metoprolol 0 Yes 100mg Take 100 Un rosa elena succinate 1-09 mg by ity of XL 100 mg 19:09: mouth [place] 24 hr 32 daily. Medical tablet Branch simvastatin 0 Yes 40mg Take 40 mg Univers 40 mg -09 by mouth ity of tablet 19:09: at [place] [address] bedtime. Medical Branch aspirin 81 0 Yes 81mg Take 81 mg U nivers mg EC -09 by mouth. ity of tablet 19:09: [place] [address] Medical Branch fluticasone 0 Yes 1{puff} Inhale 1 Univers -vilanterol 1-09 Puff. ity of (BREO 19:09: [address] 100-25 Branch mcg/dose DsDv prasugrel 0 Yes 10mg Take 10 mg Un rosa elena (EFFIENT) 09 by mouth ity of 10 mg 13:09: daily. [place] [address] Medical Branch metoprolol 0 Yes 100mg Take 100 Un rosa elena succinate 1-09 mg by ity of XL 100 mg 13:09: mouth [place] 24 hr daily. Medical tablet Branch simvastatin 0 Yes 40mg Take 40 mg Univers 40 mg 09 by mouth ity of tablet 13:09: at [place] [address] bedtime. Medical Branch aspirin 81 0 Yes 81mg Take 81 mg U nivers mg EC 09 by mouth. ity of tablet 13:09: [address] fluticasone 0 Yes 1{puff} Inhale 1 Univers -vilanterol -09 Puff. ity of (BREO 13:09: [address] [address] Branch mcg/dose DsDv diclofenac 2017-03 Yes 75mg Take 1 Unive rs 75 mg EC 13 tablet by ity of tablet 00:00: mouth 2 [place] 00 (two) Medical times Branch daily with meals. diclofenac 2017-03 2019- No 75mg Take 1 Univ ers 75 mg EC 13 0806 tablet by ity o f tablet 00:00: 00:00 mouth 2 [place] 00 :00 (two) Medical times [place] daily with meals. prasugrel 0 Yes 10mg QD Take [address] (EFFIENT) 8-15 by mouth [facility] 10 mg Tab 13:50: daily. Medica l tablet [address] [place] [address] aspirin 81 2018-0 Yes 81mg QD Take [address] MG EC 8-15 by mouth [facility] tablet 13:50: daily. [address] simvastatin 2018-0 Yes 40mg QD Take [address] [facility] (ZOCOR) 40 8-15 by mouth [facility] MG tablet 13:50: nightly. [address] nitroglycer 2018- Yes 1{spray Place [address] in 8-15 } spray [facility]ukes (NITROLINGU 13:50: under the M edical AL) 0.4 12 tongue Center mg/dose [...] mg Tab 13:50: daily. Medica l tablet [address] [place] [address] aspirin 81 0 Yes 81mg QD Take [address] MG EC 8-15 by mouth [facility]ukes tablet 13:50: daily. [address] simvastatin [address] Yes 40mg QD Take [address] (ZOCOR) 40 8-15 by mouth [facility]ukes MG tablet 13:50: nightly. [address] nitroglycer 2018 Yes 1{spray Place [address] in [...] mg Tab 13:50: daily. Medica l tablet [address] [place] [address] aspirin 81 2018-0 Yes 81mg QD Take [address] MG EC 8-15 by mouth [facility]ukes tablet 13:50: daily. [address] simvastatin 2018-0 Yes 40mg QD Take [address] (ZOCOR) 40 8-15 by mouth [facility]ukes MG tablet 13:50: nightly. [address] nitroglycer 2018-0 Yes 1{spray Place [address] in 8-15 } spray [facility]ukes (NITROLINGU 13:50: under the M edical AL) 0.4 12 tongue Center mg/dose [...] mg Tab 13:50: daily. Medica l tablet [address] [place] [address] aspirin 81 0 Yes 81mg QD Take [address] MG EC 8-15 by mouth [facility]ukes tablet 13:50: daily. [address] simvastatin 0 Yes 40mg QD Take [address] (ZOCOR) 40 8-15 by mouth [facility]ukes MG tablet 13:50: nightly. [address] nitroglycer Yes 1{spray Place [address] in [...] mg Tab 13:50: daily. Medica l tablet [address] [place] [address] aspirin 81 2018-0 Yes 81mg QD Take [address] MG EC 8-15 by mouth [facility]ukes tablet 13:50: daily. [address] simvastatin 2018-0 Yes 40mg QD Take [address] (ZOCOR) 40 8-15 by mouth [facility]ukes MG tablet 13:50: nightly. [address] nitroglycer 2018-0 Yes 1{spray Place 1 [...] mg Tab 13:50: daily. Medica l tablet [address] [place] [address] aspirin 81 [address] Yes 81mg QD Take [address] MG EC 8-15 by mouth [facility]ukes tablet 13:50: daily. [address] simvastatin 2017-0 Yes 40mg QD Take [address] (ZOCOR) 40 8-15 by mouth Lukes MG tablet 13:50: nightly. [address] nitroglycer Yes 1{spray Place [address] in 8-15 } spray [facility]ukes (NITROLINGU 13:50: under the edical AL) 0.4 12 tongue Center mg/dose every 5 spray (five) minutes as needed for Chest pain. fluticasone 2018-0 Yes 1{puff} QD Inhale [address] -vilanterol 8-15 puff by [facility]ukes (BREO 13:50: mouth via Medical ELLIPTA) inhaler Center 100-25 daily. mcg/dose DsDv prasugrel 2018-0 Yes 10mg QD Take [address] (EFFIENT) 8-15 by mouth [facility] 10 mg Tab 13:50: daily. Medica l tablet [address] [place] [address] aspirin 81 2018-0 Yes 81mg QD Take [address] MG EC 8-15 by mouth [facility]ukes tablet 13:50: daily. [address] simvastatin 2018-0 Yes 40mg QD Take [address] (ZOCOR) 40 8-15 by mouth [facility]ukes MG tablet 13:50: nightly. [address] nitroglycer 0 Yes 1{spray Place [address] in 8-15 } spray [facility]ukes (NITROLINGU 13:50: under the M edical AL) 0.4 12 tongue Center mg/dose [...] edical tablet 00 by mouth Center daily. metoprolol 2018-0 Yes 100mg QD Take 1 [...] needed for Wheezing or Shortness of Breath. albuterol Yes 2{puff} Inhale 2 U nivers 90 6-28 Puffs. ity of mcg/actuati 00:00: [place] on inhaler Medical Branch albuterol Yes 2{puff} Inhale 2 U nivers 90 6-28 Puffs. ity of mcg/actuati 00:00: on inhaler Medical Branch albuterol Yes 2{puff} Inhale 2 U nivers 90 6-28 Puffs. ity of mcg/actuati 00:00: on inhaler Medical Branch albuterol 0 Yes 2{puff} Inhale 2 U nivers 90 6-28 Puffs. ity of mcg/actuati 00:00: on inhaler Medical Branch albuterol 0 Yes 2{puff} Inhale 2 U nivers 90 6-28 Puffs. ity of mcg/actuati 00:00: on inhaler Medical Branch albuterol 0 Yes 2{puff} Inhale 2 U nivers 90 6-28 Puffs. ity of mcg/actuati 00:00: on inhaler Medical Branch metoprolol Yes 100mg QD Take 1 [facility] [...] for Wheezing or Shortness of Breath. diclofenac 2018-0 Yes 75mg QD Take [address] (VOLTAREN) 2-26 by mouth [facility]ukes 75 MG EC 00:00: daily . Medica l tablet 00 Deputy diclofenac 2018-0 Yes 75mg QD Take [address] (VOLTAREN) 2-26 by mouth [facility] 75 MG EC 00:00: daily . Medica l tablet 00 [place] diclofenac 2018-0 Yes 75mg QD Take [address] (VOLTAREN) 2-26 by mouth [facility] 75 MG EC 00:00: daily . Medica l tablet 00 [place] diclofenac 2018-0 Yes 75mg QD Take [address] (VOLTAREN) 2-26 by mouth [facility] 75 MG EC 00:00: daily . Medica l tablet 00 [place] diclofenac 2018-0 Yes 75mg QD Take [address] (VOLTAREN) 2-26 by mouth [facility] 75 MG EC 00:00: daily . Medica l tablet 00 [place] diclofenac 2018-0 Yes 75mg QD Take [address] (VOLTAREN) 2-26 by mouth [facility] 75 MG EC 00:00: daily . Medica l tablet 00 [place] diclofenac 2018-0 Yes 75mg QD Take [address] (VOLTAREN) 2-26 by mouth [facility] 75 MG EC 00:00: daily . Medica l tablet 00 Deputy Procedures Procedure Date / Time Performing Clinician Source Performed EXTERNAL PROVIDER 2021-02-16 06:01:00 Doctor Unassigned, No [facility] [place] WORKERS COMPENSATION 2018-11-14 05:01:00 [facility] 2018-11-02 05:01[facility]00 [facility] Planned Activity Planned Date Details Comments Source Future Scheduled 2022-12-30 Screening for [facility] Test 20:51:15 malignant neoplasm of colon (procedure) [code = 552909403] Future Scheduled 2022-12-30 [facility] 2) [code = SHINGLES VACCINES (1 of 2)] Future Scheduled 2022-12-30 65+ [facility]OCOCCAL [facility] 20:51:15 VACCINE (1 - PCV) [code = 65+ PNEUMOCOCCAL VACCINE (1 - PCV)] Future Scheduled 2022-12-30 INFLUENZA VACCINE (#1) [facility] 20:51:15 [code = INFLUENZA VACCINE (#1)] Future Scheduled 2022-12-30 Screening for [facility] Test 20:51:15 malignant neoplasm of colon (procedure) [code = 846748675] Future Scheduled 2022-12-30 Screening for [facility] Test 20:51:15 malignant neoplasm of colon (procedure) [code = 207774959] Future Scheduled 2022-12-30 Screening for [facility] Test 20:51:15 malignant neoplasm of colon (procedure) [code = 173216866] Future Scheduled 2022-12-30 [facility]19 [facility] 20:51:15 [code = COVID-19 VACCINE (#1)] Future Scheduled 2022-12-30 Screening for [facility] Test 20:51:15 malignant neoplasm of colon (procedure) [code = 128059122] Future Scheduled 2022-12-30 Screening for [facility] Test 20:51:15 malignant neoplasm of colon (procedure) [code = 619213761] Future Scheduled 2022-12-30 [facility]INGLES [facility]ACCINES ([facility] 20:51:15 of 2) [code = SHINGLES VACCINES (1 of 2)] Future Scheduled 2022-12-30 SHINGLES VACCINES ([facility] 20:51:15 of 2) [code = SHINGLES VACCINES (1 of 2)] Future Scheduled 2022-12-30 65+ [facility]OCOCCAL [facility] Test 20:51:15 VACCINE (1 - PCV) [code = 65+ PNEUMOCOCCAL VACCINE (1 - PCV)] Future Scheduled 2022-12-30 INFLUENZA VACCINE (#1) [facility] 20:51:15 [code = INFLUENZA VACCINE (#1)] Future Scheduled 2022-12-30 Screening for [facility] Test 20:51:15 malignant neoplasm of colon (procedure) [code = 492712962] Future Scheduled 2022-12-30 Screening for [facility] Test 20:51:15 malignant neoplasm of colon (procedure) [code = 730571052] Future Scheduled 2022-12-30 Screening for [facility] Test 20:51:15 malignant neoplasm of colon (procedure) [code = 127994184] Future Scheduled 2022-12-30 COVID-19 [facility] (#[facility] 20:[facility]:15 [code = COVID-19 VACCINE (#1)] Future Scheduled 2022-12-30 Screening for [facility] Test 20:51:15 malignant neoplasm of colon (procedure) [code = 092881331] Future Scheduled 2022-12-30 Screening for [facility] Test 20:51:15 malignant neoplasm of colon (procedure) [code = 667419208] Future Scheduled 2022-12-30 65+ [facility]OCC[facility] 20:51:15 VACCINE (1 - PCV) [code = 65+ PNEUMOCOCCAL VACCINE (1 - PCV)] Future Scheduled 2022-12-30 Screening for [facility] Test 20:51:15 malignant neoplasm of colon (procedure) [code = 529130479] Future Scheduled 2022-12-30 SHINGLES VACCINES ([facility] 20:51:15 of 2) [code = SHINGLES VACCINES (1 of 2)] Future Scheduled 2022-12-30 65+ [facility]OCOCC[facility] Test 20:51:15 VACCINE (1 - PCV) [code = 65+ PNEUMOCOCCAL VACCINE (1 - PCV)] Future Scheduled 2022-12-30 INFLUENZA VACCINE (#1) [facility] 20:51:15 [code = INFLUENZA VACCINE (#1)] Future Scheduled 2022-12-30 Screening for [facility] Test 20:51:15 malignant neoplasm of colon (procedure) [code = 025032974] Future Scheduled 2022-12-30 Screening for [facility] Test 20:51:15 malignant neoplasm of colon (procedure) [code = 377246571] Future Scheduled 2022-12-30 Screening for [facility] Test 20:51:15 malignant neoplasm of colon (procedure) [code = 585223725] Future Scheduled 2022-12-30 COVID-19 VACCINE (#[facility]) [facility] 20:51:15 [code = COVID-19 VACCINE (#1)] Future Scheduled 2022-12-30 Screening for [facility] Test 20:51:15 malignant neoplasm of colon (procedure) [code = 818784326] Future Scheduled 2022-12-30 INFLUENZA VACCINE (#1) [facility] 20:51:15 [code = INFLUENZA VACCINE (#1)] Future Scheduled 2022-12-30 Screening for [facility] Test 20:51:15 malignant neoplasm of colon (procedure) [code = 749977162] Future Scheduled 2022-12-30 Screening for [facility] Test 20:51:15 malignant neoplasm of colon (procedure) [code = 803012504] Future Scheduled 2022-12-30 Screening for [facility] Test 20:51:15 malignant neoplasm of colon (procedure) [code = 724914869] Future Scheduled 2022-12-30 COVID-19 [facility]ACCINE (#1) [facility] 20:51:15 [code = COVID-19 VACCINE (#1)] Future Scheduled 2022-12-30 Screening for [facility] Test 20:51:15 malignant neoplasm of colon (procedure) [code = 949133403] Encounters Start End Encounter Admission Attending Care Care Encounter Source Date/Time Date/Time Type Type Clinicians Facility Department ID 2021-02-16 2021-02-16 Orders Doctor MELISSA [id number] Univers 00:00:00 00:00:00 Only Unassigned, OSORIO [id number] ity of [facility] 4.2.7.2.686 Sharad as [phone] [address] 2019-03-19 2019-03-19 GONZÁLEZ Price [id number] Univers 00:00:00 00:00:00 [facility] [id number] it y of Surgical 4.2.7.2.686 Sharad as Specialti [phone] [place] dical [address] [facility] 2018-11-14 2018-11-14 Orders Doctor TORRES [id number] Univers 00:00:00 00:00:00 Only Unassigned, OSORIO 350.1.13.10 [facility] 4.2.7.2.686 Sharad as [phone] [address] 2018-11-02 2018-11-02 Orders Doctor MELISSA [id number] Univers 00:00:00 00:00:00 Only Unassigned, OSORIO 350.1.13.10 [facility] 4.2.7.2.686 Sharad as [phone] [place] [address] Branch 2018-10-10 2018-10-10 Telephone Brigida [facility] [id number] Univers 00:00:00 00:00:00 Edgar [place] [email or web address] 350.1.13.10 it y of Surgical 4.2.7.2.686 Sharad as Specialti [phone] [place] dical es 198 [facility] 2018-10-05 2018-10-05 Refill Brigida [facility] [id number] Univers 00:00:00 00:00:00 Edgar [place] [email or web address] 350.1.13.10 it y of Surgical 4.2.7.2.686 Sharad as Specialti [phone] [place] dical es 198 [facility] Results Test Description Test Time Test Comments [...] NOT 1092) ACCURATE CRE ATININE CLEARANCE IN WI EDICTING GLOMERULAR FILT RATION RATE. ESTIMATED GFR [...] WBC 0-0 (BEAKER) (test code = 413) [id number] 17:34:00 Test Item Value Reference Range Interpretation Comments ACTIVATED CLOTTING TIME 153 sec TEST ED AT [place] [address] (BEAKER) (test code = [place] [address]) [id number] 13:16:00 Test Item Value Reference Range Interpretation Comments ACTIVATED CLOTTING TIME 307 sec TEST ED AT [place] [address] (BEAKER) (test code = [place] [address]) [id number] [id number] 05:18:00 Test Item Value Reference Range Interpretation Comments MAGNESIUM (BEAKER) (test code = 2.4 mg/dL 1.6-2.6 627) BASIC METABOLIC [id number] 05:18:00 Test Item Value Reference Range Interpretation [...] S NOT APPLICABLE FOR DIALYSIS PATIEN TS. [id number] 05:40:00 Test Item Value Reference Range Interpretation Comments MAGNESIUM (BEAKER) (test code = 2.4 mg/dL 1.6-2.6 627) BASIC METABOLIC [id number] 05:40:00 Test Item Value Reference Range Interpretation [...] PATIEN TS. CBC W/PLT COUNT & AUTO [id number] 05:14:00 Test Item Value Reference Range Interpretation [...] (test code = 2801) CT, BRAIN, WITHOUT [id number] 21:01:00FINAL REPORT CT head without contrast 08/30/2017 [...] with MRI is recommended. Signed: Morro Clifton Verified Date/Time: 08/30/2017 21:01:19 Reading Location: [facility] Radiology Reading Room HEMOGLOBIN [id number] 15:01:00 Test Item Value Reference Range Interpretation Comments HEMOGLOBIN A1C (BEAKER) (test code = 5.8 % 4.3-6.1 368) CBC W/PLT COUNT & AUTO [id number] 10:55:00 Test Item Value Reference Range Interpretation [...] % 0-1 PERCENT (BEAKER) (test code = 2806) [id number] 07:11:00 Test Item Value Reference Range Interpretation Comments MAGNESIUM (BEAKER) (test code = 2.1 mg/dL 1.6-2.6 627) BASIC METABOLIC [id number] 07:11:00 Test Item Value Reference Range Interpretation [...] NOT APPLICABLE FOR DIALYSIS PATIEN TS. LIPID [id number] 07:11:00 Test Item Value Reference Range Interpretation Comments TRIGLYCERIDES (BEAKER) (test code = 64 mg/dL 540) CHOLESTEROL (BEAKER) (test code = 145 mg/dL 631) HDL CHOLESTEROL (BEAKER) (test code 43 mg/dL = 976) LDL CHOLESTEROL CALCULATED (BEAKER) 89 mg/dL (test code = 633) Triglyceride Reference Range: Low Risk <150 Borderline 150-199 High Risk 200- 499 Very High Risk >=500Cholesterol Reference Range: Low Risk <200 Borderline 200-239 High Risk >240HDL Cholesterol Reference Range: Low Risk >=60 High Risk <40LDL Cholesterol Reference Range: Optimal <100 Near Optimal 100-129 Borderline 130-159 High 160-189 Very High >=190HEPATIC FUNCTION [id number] 07:11:00 Test Item Value Reference Range Interpretation Comments TOTAL PROTEIN (BEAKER) (test code = 6.8 gm/dL 6.0-8.3 770) ALBUMIN (BEAKER) (test code = 1145) 3.9 g/dL 3.5-5.0 BILIRUBIN TOTAL (BEAKER) (test code 0.4 mg/dL 0.2-1.2 = 377) BILIRUBIN DIRECT (BEAKER) (test 0.2 mg/dL 0.1-0.5 code = 706) ALKALINE PHOSPHATASE (BEAKER) (test 84 U/L 40-150 code = 346) AST (SGOT) (TERESSA) (test code = 15 U/L 5-34 353) ALT (SGPT) (TERESSA) (test code = 25 U/L 6-55 347) TROPONIN [id number] 01:07:00 Test Item Value Reference Range Interpretation Comments TROPONIN I (TERESSA) (test code = 397) < ng/mL 0.00-0.03 [...] neurological disease, and persistent tachyarrhythmia.CT, CHEST, WITH [id number] 21:13:00FINAL REPORT EXAM: CT of the chest, [...] MDReport Verified Date/Time: 08/29/2017 21:13:13 Reading Location: [facility] Transitional Reading Room URINALYSIS W/ MICROSCOPIC 2017-08-29 [...] = 2795) CREATINE KINASE (CK), TOTAL AND [id number] 15:34:00 Test Item Value Reference Range Interpretation Comments CREATINE KINASE TOTAL (BEAKER) 72 U/L 29-200 (test code = 380) CREATINE KINASE-MB (BEAKER) (test 1.4 ng/mL 0.0-6.6 code = 750) CREATINE KINASE-MB INDEX (BEAKER) 1.9 % (test code = 395) CK-MB Reference Range:<6.7 Normal6.7-10.0 Borderline>10.0 AbnormalTROPONIN [id number] 15:34:00 Test Item Value Reference Range Interpretation [...] 18 pg/mL 0-100 (test code = 700) [id number] 15:33:00 Test Item Value Reference Range Interpretation [...] is 2.5-3.5 for patients with mechanical heart valves.[id number] 15:27:00 Test Item Value Reference Range Interpretation Comments MAGNESIUM (BEAKER) (test code = 2.1 mg/dL 1.6-2.6 627) BASIC METABOLIC [id number] 15:27:00 Test Item Value Reference Range Interpretation [...] PATIEN TS. CBC W/PLT COUNT & AUTO [id number] 15:20:00 Test Item Value Reference Range Interpretation [...] = 2801) RAD, CHEST, 1 VIEW, NON [id number] 15:03:00Reason for exam:->SHORTNESS OF BREATHReason for exam:->DIZZINESSReason [...] of the left hilum. Signed: Adonay Bird MDReport Verified Date/Time: 08/29/2017 15:03:26 Reading Location: [facility] Mammo Reading Room
[2023-01-06 10:37] LABS: Absolute Lymphocytes (CBC) 1.4 K/uL (0.7-4.9); Hematocrit 47.9 % (39.6-49.0); Lymphocytes % 17.1 % (15.3-44.8); MCV 97.7 fL (80-100); MPV 8.9 fL (7.6-11.3); Platelets 204 thou/uL (152-406); RBC Red Blood Cell Count 4.91 M/uL (4.33-5.43)
[2023-01-06 10:39] LABS: Protime INR 1.1
[2023-01-06] MEDS ORDERED: HYDRALAZINE HCL 20 MG/ML VIAL ONE ×2 (10:40→11:51)
--- NOTE | 2023-01-06 10:40 | RAD REPORT ---
EXAM DESCRIPTION: CT - Head Brain Wo Cont - 01/06/2023 10:31 am CLINICAL HISTORY: DIZZINESS Headache, drowsiness COMPARISON: <Comparisons> TECHNIQUE: All CT scans are performed using dose optimization technique as appropriate and may inclu de automated exposure control or mA/KV adjustment according to patient size. FINDINGS: No intracranial hemorrhage, hydrocephalus or extra-axial fluid collection.Mild brain atrop hy.No areas of brain edema or evidence of midline shift. 2 cm mucous retention cyst inferior maxillary antrum on the right. The paranasal sinuses and mastoids otherwise clear. Vertebral atherosclerosis. The calvarium is intact. IMPRESSION: No acute intracranial abnormality.
[2023-01-06 10:57] LABS: Bilirubin Direct 0.2 mg/dL (0-0.2); Bilirubin Indirect, Calculated 0.3 mg/dL (0.2-0.8); Bilirubin Total 0.5 mg/dL (0.2-1.0); Magnesium 1.8 mg/dL (1.6-2.4); Protein, Total 7.9 g/dL (6.4-8.2); Troponin High Sensitivity 9.4 pg/mL (<58.9)
[2023-01-06] MEDS ORDERED: MECLIZINE HCL 12.5 MG TAB ONE (11:01)
--- NOTE | 2023-01-06 11:13 | RAD REPORT ---
EXAM DESCRIPTION: RAD - Chest Single View - 01/06/2023 10:52 am CLINICAL HISTORY: MALAISE Chest pain. COMPARISON: <Comparisons> FINDINGS: Portable technique limits examination quality. Chronic elevation of the right hemidiaphragm is noted. Mild pulmonary edema versus interstitial infec tion is noted. The heart is moderately enlarged. No displaced fractures. IMPRESSION: The findings could reflect CHF. Another possibility would be a viral infection.
--- NOTE | 2023-01-06 12:39 | RAD REPORT ---
EXAM DESCRIPTION: CT - Head angio - 01/06/2023 12:12 pm CLINICAL HISTORY: DIZZINESS COMPARISON: Head Brain Wo Cont dated 01/06/2023; CT HEAD CSPINE MPR WO CONTRAST dated 11/17/2011; Neck Angio dated 01/06/2023 TECHNIQUE: Axial CT angiography images of the head was performed with multiplanar and maximum intens ity projection reconstructions. Images performed following intravenous administration of 100mL Isovue 370. All CT scans are performed using dose optimization technique as appropriate and may include automated exposure control or mA/KV adjustment according to patient size. FINDINGS: No evidence of large vessel occlusion. No evidence of aneurysm or dissection flap is detec juan. No flow-limiting stenosis or vascular malformation identified. Antegrade flow is seen in the vertebral arteries. The vertebral arteries are codominant. The visualized dural venous sinuses are grossly patent. Incidentally noted ovoid well-circumscribed hyperenhancing mass within the superficial left parotid l obe, measuring 2.4 x 2.0 x 3.1 cm in greatest transverse, AP, and CC dimensions. This is probably new or progressive since the prior exam of 11/17/2011, within limitations of difference in technique. Sm aller enhancing lesions at the parotid tails bilaterally, largest measuring 1.4 cm on the right are n onspecific and may represent small intraparotid lymph nodes. IMPRESSION: No evidence of large vessel occlusion or flow-limiting stenosis. 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 Additional evaluation by soft tissue sampling via ultrasound-guided fine-needle aspiration/biopsy should be considered.
[2023-01-06] MEDS ORDERED: cloNIDine HCL 0.1 MG TAB ONE (12:55)
--- NOTE | 2023-01-06 13:04 | RAD REPORT ---
EXAM DESCRIPTION: CT - Neck Angio - 01/06/2023 12:12 pm CLINICAL HISTORY: dizziness COMPARISON: CT HEAD CSPINE MPR WO CONTRAST dated 11/17/2011; Head angio dated 01/06/2023 TECHNIQUE: Axial CT angiography images of the head was performed with multiplanar and maximum intens ity projection reconstructions. Images performed following intravenous administration of 100mL Isovue 370. All CT scans are performed using dose optimization technique as appropriate and may include automated exposure control or mA/KV adjustment according to patient size. Quantification of carotid stenosis, if any, is performed according to NASCET criteria. FINDINGS: Beam hardening artifact obscures proximal segments of the right common carotid and right v ertebral artery limiting evaluation. A left aortic arch is identified with normal three vessel configuration of the great vessels. No significant flow abnormality is seen of the common carotid bilaterally. Moderate calcified atherosclerotic plaque at the carotid bulbs bilaterally, amounting to less than 50 % stenosis. No other significant stenosis is identified involving the cervical segments of both inter nal carotid arteries. Normal flow is seen within both vertebral arteries. Right maxillary sinus mucous retention cyst. Enhancing ovoid mass of the left superficial parotid lobe, as discussed in detail on the CT angiogram brain of the same day. IMPRESSION: Moderate atherosclerotic calcifications at the carotid bulbs with less than 50% stenosis bilaterally. No hemodynamically significant stenosis of the neck vessels is identified. CAROTID STENOSIS REFERENCE USING NASCET CRITERIA: % ICA stenosis = (1 - narrowest ICA diameter/diameter of distal cervical ICA) x 100. Mild - <50% stenosis. Moderate - 50-69% stenosis. Severe - 70-94% stenosis. Near occlusion - 95-99% stenosis. Occluded - 100% stenosis.
--- NOTE | 2023-01-06 13:15 | EDPHYS ---
Physician Documentation [facility] Name: Claudio Vasquez Age: 67 yrs Sex: Male : 1955 Arrival Date: 01/06/2023 Time: 09:33 Bed 20 Private MD: ED Physician Nicko Pantoja HPI: 01/06 09:42 This 67 yrs old Male presents to ER via Ambulatory with complaints of Dizziness, Fall jh7 Injury. 09:42 The patient presents with dizziness, feeling off balance. Onset: The symptoms/episode jh7 began/occurred this morning, at 06:00. Context: occurred at home, occurred while the patient was getting up from bed, walking. Modifying factors: The symptoms are alleviated by sitting up and not moving, the symptoms are aggravated by movement of head, standing up, changing position. Associated signs and symptoms: Pertinent positives: nausea, Pertinent negatives: abdominal pain, chest pain, focal weakness, head injury, headache, syncope. 67-year-old male presents to the ER with dizziness. He reports that as soon as he got out of bed at 6 AM this morning, he immediately became dizzy and fell. He reports that the dizziness never left him, and that as he walked around his house he fell again. Denies head injury or loss of consciousness. Reports history of uncontrolled hypertension and is currently taking Lopressor and losartan. Also reports history of myocardial infarction with stent placement in 2005. Denies having a PCP.. Historical: - Allergies: 09:41 NKA; ll1 - PMHx: 09:41 COPD; Hypertension; Myocardial infarction; ll1 - PSHx: 09:41 Appendectomy; Lithotripsy; heart stents (Lithotripsy); ll1 - Immunization history:: Adult Immunizations up to date. - Social history:: Smoking status: Patient reports the use of cigarette tobacco products, smokes one-half pack cigarettes per day. ROS: 09:42 Constitutional: Negative for fever, chills, and weight loss, Eyes: Negative for injury, jh7 pain, redness, and discharge, ENT: Negative for injury, pain, and discharge, Neck: Negative for injury, pain, and swelling, Cardiovascular: Negative for chest pain, palpitations, and edema, Respiratory: Negative for shortness of breath, cough, wheezing, and pleuritic chest pain, Back: Negative for injury and pain, MS/Extremity: Negative for injury and deformity, Skin: Negative for injury, rash, and discoloration, 09:42 Abdomen/GI: Positive for nausea, Negative for abdominal pain, vomiting, diarrhea, constipation, 09:42 Neuro: Positive for dizziness, gait disturbance, Negative for altered mental status, headache, speech changes, syncope, tingling, visual changes, weakness, 09:42 All other systems are negative, Exam: 09:42 Constitutional: This is a well developed, well nourished patient who is awake, alert, jh7 and in no acute distress. Head/Face: Normocephalic, atraumatic. Eyes: Pupils equal round and reactive to light, extra-ocular motions intact. Lids and lashes normal. Conjunctiva and sclera are non-icteric and not injected. Cornea within normal limits. Periorbital areas with no swelling, redness, or edema. ENT: Nares patent. No nasal discharge, no septal abnormalities noted. Tympanic membranes are normal and external auditory canals are clear. Oropharynx with no redness, swelling, or masses, exudates, or evidence of obstruction, uvula midline. Mucous membranes moist. Neck: Trachea midline, no thyromegaly or masses palpated, and no cervical lymphadenopathy. Supple, full range of motion without nuchal rigidity, or vertebral point tenderness. No Meningismus. Cardiovascular: Regular rate and rhythm with a normal S1 and S2. No gallops, murmurs, or rubs. Normal PMI, no JVD. No pulse deficits. Respiratory: Lungs have equal breath sounds bilaterally, clear to auscultation and percussion. No rales, rhonchi or wheezes noted. No increased work of breathing, no retractions or nasal flaring. Abdomen/GI: Soft, non-tender, with normal bowel sounds. No distension or tympany. No guarding or rebound. No evidence of tenderness throughout. Skin: Warm, dry with normal turgor. Normal color with no rashes, no lesions, and no evidence of cellulitis. MS/ Extremity: Pulses equal, no cyanosis. Neurovascular intact. Full, normal range of motion. 09:42 Neuro: Orientation: to person, place, time \T\ situation. Mentation: is normal, Memory: is normal, Cranial nerves: grossly normal, Cerebellar function: unable to test, Significant dizziness, Motor: is normal, Sensation: is normal, Gait: is unsteady, Vital Signs: 09:42 BP 206 / 107; Pulse 73; Resp 20; Temp 98.4; Pulse Ox 99% ; Weight 154.22 kg; Height 5 ll1 ft. 10 in. ; Pain 8/10; 10:03 BP 210 / 89 Sitting; Pulse 74; Resp 20; Pulse Ox 97% on R/A; eh3 10:05 BP 194 / 95 Supine; Pulse 75; Resp 20; Pulse Ox 97% on R/A; eh3 10:37 BP 179 / 76; Pulse 73; Resp 19; Pulse Ox 96% on R/A; eh3 10:45 BP 182 / 81; Pulse 72; Resp 20; Pulse Ox 95% on R/A; eh3 11:00 BP 192 / 82; Pulse 68; Resp 19; Pulse Ox 96% on R/A; eh3 11:15 BP 192 / 96; Pulse 75; Resp 19; Pulse Ox 96% on R/A; eh3 11:45 BP 185 / 78; Pulse 79; Resp 20; Pulse Ox 96% on R/A; eh3 12:15 BP 181 / 85; Pulse 91; Resp 20; Pulse Ox 95% on R/A; eh3 12:45 BP 185 / 95; Pulse 79; Resp 20; Pulse Ox 95% on R/A; eh3 13:15 BP 164 / 88; Pulse 82; Resp 20; Pulse Ox 97% on R/A; eh3 13:30 BP 163 / 81; Pulse 80; Resp 20 S; Pulse Ox 96% on R/A; eh3 09:42 Body Mass Index 48.78 (154.22 kg, 177.8 cm) ll1 09:42 Pain Scale: Adult ll1 NIH Stroke Scale Scores: 09:42 NIHSS Score: 0 7 MDM: 09:39 Patient medically screened. [facility] 13:10 Differential diagnosis: cardiac arrhythmia, CVA, generalized weakness, head injury, 7 near-syncope, TIA, vertigo. Data reviewed: vital signs, nurses notes, lab test result(s), EKG, radiologic studies, CT scan, plain films. Consideration of Admission/Observation Escalation of care including admission/observation considered. The patient stated he preferred to go home and follow-up with his doctor. I considered the following discharge prescriptions or medication management in the emergency department Medications were administered in the Emergency Department. See MAR. Independent interpretation of the following test(s) in the Emergency Department EKG: See my EKG interpretation above. Historians other than the Patient: Daughter/Son: Daughter. Care significantly affected by the following chronic conditions: Hypertension, Congestive Heart Failure, Chronic Obstructive Pulmonary Disease. Counseling: I had a detailed discussion with the patient and/or guardian regarding the historical points, exam findings, and any diagnostic results supporting the discharge/admit diagnosis, the need for outpatient follow up, PCP. Response to treatment: the patient's symptoms have markedly improved after treatment. ED course: The meclizine is significantly improved the patient's symptoms. Reviewed on the CT. Advised the patient that if dizziness worsens or any new concerning symptoms develop, return to the ER for reeval. He stated that his blood pressure normally ran in the 180s at home. Advised him to follow-up with his PCP for an adjustment of his blood pressure medications.. 01/06 09:51 Order name: Basic Metabolic Panel; Complete Time: 11: [facility] 01/06 09:51 Order name: CBC with Diff; Complete Time: 10:45 [facility] 01/06 09:51 Order name: LFT's; Complete Time: 11: [facility] 01/06 09:51 Order name: Magnesium; Complete Time: : [facility] 01/06 09:51 Order name: NT PRO-BNP; Complete Time: 11:00 [facility] 01/06 09:51 Order name: PT-INR; Complete Time: 10:45 [facility] 01/06 09:51 Order name: Troponin HS; Complete Time: 11:00 [facility] 01/06 09:51 Order name: XRAY Chest (1 view); Complete Time: 11:15 [facility] 01/06 09:52 Order name: CT Head Brain wo Cont; Complete Time: 10:45 [facility] 01/06 11:40 Order name: CT Head Angio; Complete Time: 12:54 [facility] 01/06 11:40 Order name: CT Neck Angio; Complete Time: 13:07 [facility] 01/06 09:51 Order name: EKG; Complete Time: 10:02 [facility] 01/06 09:51 Order name: Cardiac monitoring; Complete Time: 10:00 [facility] 01/06 09:51 Order name: EKG - Nurse/Tech; Complete Time: 10:08 [facility] 01/06 09:51 Order name: IV Saline Lock; Complete Time: 10: [facility] 01/06 09:51 Order name: Labs collected and sent; Complete Time: : [facility] 01/06 09:51 Order name: O2 Per Protocol; Complete Time: 10: [facility] 01/06 09:51 Order name: O2 Sat Monitoring; Complete Time: 10: [facility] 01/06 09:51 Order name: Orthostatics: lying and sitting only; Complete Time: : [facility] 01/06 11:01 Order name: Recheck Blood Pressure; Complete Time: 11:08 [facility] EC:07 Rate is 73 beats/min. Rhythm is regular. QRS Weems is Normal. TX interval is normal at [facility] 190 msec. QRS interval is normal at 146 msec. QT interval is prolonged at 454 msec. No Q waves. Clinical impression: Normal sinus rhythm with right bundle branch block. Administered Medications: 10:48 Drug: Meclizine PO 25 mg PO once Route: PO; eh3 12:00 Follow up: Response: No adverse reaction eh3 11:05 Drug: hydrALAZINE IVP 10 mg IVP once Route: IVP; Site: right forearm; eh3 11:40 Follow up: Response: No adverse reaction; Blood pressure is unchanged eh3 11:40 Drug: hydrALAZINE IVP 10 mg IVP once Route: IVP; Site: right forearm; eh3 12:30 Follow up: Response: No adverse reaction; Blood pressure is unchanged eh3 12:39 Drug: cloNIDine PO 0.1 mg PO once Route: PO; eh3 13:42 Follow up: Response: No adverse reaction; Blood pressure is lowered eh3 Disposition: 14:37 Co-signature as Attending Physician, Nicko Pantoja MD I reviewed the patient's care rt provided by the Advanced Practice Provider and agree with the diagnosis and treatment plan. Disposition Summary: 01/06/23 13:14 Discharge Ordered Notes: Location: Home [facility] Problem: new [facility] Symptoms: have improved jh Condition: Stable [facility] Diagnosis - Dizziness and giddiness jh7 - Essential (primary) hypertension 7 Followup: [facility] - With: Private Physician - When: 2 - 3 days - Reason: Recheck today's complaints Discharge Instructions: - Discharge Summary Sheet 7 - Dizziness jh7 - Hypertension, Adult jh7 - Vertigo [facility] - Managing Your Hypertension [facility] Forms: - Medication Reconciliation Form [facility] - Thank You Letter [facility] - Patient Portal Instructions [facility] - Leadership Thank You Letter [facility] Prescriptions: - Meclizine 25 mg Oral Tablet - take 1 tablet ORAL route every 8 hours As needed; 30 tablet; Refills: 0, [facility] Product Selection Permitted - Hydralazine 25 mg Oral Tablet - take 1 tablet ORAL route 4 times per day with food; 30 tablet; Refills: 0, [facility] Product Selection Permitted NIH Stroke Scale - NIH Stroke Score Date: 01/06/2023 Time: 09:42 Total Score = 0 10. Dysarthria (speech clarity - read or repeat words) - 0(Normal) 11. Extinction and Inattention (visual/tactile/auditory/spatial/personal) - 0(No abnormality) 1a. Level of Consciousness (LOC) - 0(Alert) 1b. Level of Consciousness (LOC) (Month \T\ Age) - 0(Both) 1c. LOC Commands (Open \T\ Closes Eyes/Diplomatic Courier) - 0(Both) 2. Best Gaze (Lateral Gaze Paresis) - 0(Normal) 3. Visual Field Loss - 0(No visual loss) 4. Facial Palsy - 0(Normal) 5a. Left Arm: Motor (10-second hold) - 0(No drift) 5b. Right Arm: Motor (10-second hold) - 0(No drift) 6a. Left Leg: Motor (5-second hold - always test supine) - 0(No drift) 6b. Right Leg: Motor (5-second hold - always test supine) - 0(No drift) 7. Limb Ataxia (finger/nose \T\ heel/hein - test with eyes open) - 0(Absent) 8. Sensory Loss (pinprick arms/legs/face) - 0(Normal) 9. Best Language: Aphasia (description/naming/reading) - 0(No aphasia) Initials: [facility] Signatures: Dispatcher [employer] Arya Vega RN RN ll1 Fozia Robin RN RN eh3 Edita Quintana, [employer]ACHINE [employer] [facility] Nicko Pantoja MD MD rt
--- NOTE | 2023-01-06 13:15 | ER ---
Nurse's Notes [facility] Name: Claudio Vasquez Age: 67 yrs Sex: Male : 1955 Arrival Date: 01/06/2023 Time: 09:33 Bed 20 Private MD: Diagnosis: Dizziness and giddiness;Essential (primary) hypertension Presentation: 01/06 09:42 Coronavirus screen: Vaccine status: Patient reports receiving the 2nd dose of the covid ll1 vaccine. Client denies travel out of the [place] in the last 14 days. At this time, the client does not indicate any symptoms associated with coronavirus-19. Ebola Screen: Patient denies travel to an Ebola-affected area in the 21 days before illness onset. Initial Sepsis Screen: Does the patient meet any 2 criteria? No. Patient's initial sepsis screen is negative. Does the patient have a suspected source of infection? No. Patient's initial sepsis screen is negative. Risk Assessment: Do you want to hurt yourself or someone else? Patient reports no desire to harm self or others. Onset of symptoms was January 06, 2023. 09:42 Method Of Arrival: Ambulatory ll1 09:42 Acuity: MILLIE 2 ll1 09:44 Chief complaint: Patient states: Dizziness started this AM. Shaky and weak. 2 falls ll1 this am. Has a known kidney stone R side, but no pain at this time. Historical: - Allergies: 09:41 NKA; ll1 - PMHx: 09:41 COPD; Hypertension; Myocardial infarction; ll1 - PSHx: 09:41 Appendectomy; Lithotripsy; heart stents (Lithotripsy); ll1 - Immunization history:: Adult Immunizations up to date. - Social history:: Smoking status: Patient reports the use of cigarette tobacco products, smokes one-half pack cigarettes per day. Screenin:50 [facility] ED Fall Risk Assessment (Adult) Score/Fall Risk Level 0 - 2 = Low Risk. Abuse eh3 screen: Denies threats or abuse. Denies injuries from another. Nutritional screening: No deficits noted. Tuberculosis screening: No symptoms or risk factors identified. Assessment: 09:50 General: Appears in no apparent distress. uncomfortable, Behavior is cooperative, eh3 appropriate for age. Pain: Complains of pain in head. Neuro: Level of Consciousness is awake, alert, obeys commands, Oriented to person, place, time, situation, Reports dizziness. Neuro: Speech is normal, Facial symmetry appears normal, Pupils are PERRLA, Intact. Cardiovascular: Capillary refill < 3 seconds Patient's skin is warm and dry. Cardiovascular: Rhythm is sinus rhythm. Respiratory: Airway is patent Respiratory effort is even, unlabored, Respiratory pattern is regular, symmetrical. GI: Abdomen is round. Derm: Skin is pink, warm \T\ dry. Musculoskeletal: Circulation, motion, and sensation intact. 10:37 Reassessment: Hydralazine held per provider due to BP 179/76. eh3 10:45 Reassessment: Patient appears in no apparent distress at this time. Patient and/or [facility] family updated on plan of care and expected duration. Pain level reassessed. Patient is alert, oriented x 3, equal unlabored respirations, skin warm/dry/pink. 11:05 Reassessment: Hydralazine 10mg administered per provider, BP 192/82. eh3 11:45 Reassessment: Patient appears in no apparent distress at this time. Patient and/or 3 family updated on plan of care and expected duration. Pain level reassessed. Patient is alert, oriented x 3, equal unlabored respirations, skin warm/dry/pink. 12:45 Reassessment: Patient appears in no apparent distress at this time. Patient and/or 3 family updated on plan of care and expected duration. Pain level reassessed. Patient is alert, oriented x 3, equal unlabored respirations, skin warm/dry/pink. Vital Signs: 09:42 BP 206 / 107; Pulse 73; Resp 20; Temp 98.4; Pulse Ox 99% ; Weight 154.22 kg; Height 5 ll1 ft. 10 in. ; Pain 8/10; 10:03 BP 210 / 89 Sitting; Pulse 74; Resp 20; Pulse Ox 97% on R/A; eh3 10:05 BP 194 / 95 Supine; Pulse 75; Resp 20; Pulse Ox 97% on R/A; eh3 10:37 BP 179 / 76; Pulse 73; Resp 19; Pulse Ox 96% on R/A; eh3 10:45 BP 182 / 81; Pulse 72; Resp 20; Pulse Ox 95% on R/A; eh3 11:00 BP 192 / 82; Pulse 68; Resp 19; Pulse Ox 96% on R/A; eh3 11:15 BP 192 / 96; Pulse 75; Resp 19; Pulse Ox 96% on R/A; eh3 11:45 BP 185 / 78; Pulse 79; Resp 20; Pulse Ox 96% on R/A; eh3 12:15 BP 181 / 85; Pulse 91; Resp 20; Pulse Ox 95% on R/A; eh3 12:45 BP 185 / 95; Pulse 79; Resp 20; Pulse Ox 95% on R/A; eh3 13:15 BP 164 / 88; Pulse 82; Resp 20; Pulse Ox 97% on R/A; eh3 13:30 BP 163 / 81; Pulse 80; Resp 20 S; Pulse Ox 96% on R/A; eh3 09:42 Body Mass Index 48.78 (154.22 kg, 177.8 cm) ll1 09:42 Pain Scale: Adult [facility] NIH Stroke Scale Scores: 09:42 NIHSS Score: 0 [facility] ED Course: 09:37 Patient arrived in ED. im 09:39 Edita Quintana FNP is PHCP. jh7 09:39 Nicko Pantoja MD is Attending Physician. jh7 09:43 Triage completed. ll1 09:43 Arm band placed on Patient placed in an exam room, on a stretcher. ll1 09:50 Patient has correct armband on for positive identification. Bed in low position. Call eh3 light in reach. Side rails up X2. Adult w/ patient. Provided Education on: use of call salomon. Client placed on continuous cardiac and pulse oximetry monitoring. NIBP monitoring applied. 09:56 Fozia Robin, RN is Primary Nurse. eh3 10:20 Inserted saline lock: 22 gauge in right forearm, using aseptic technique. Blood eh3 collected. 10:30 CT Head Brain wo Cont In Process Unspecified. EDMS 10:54 XRAY Chest (1 view) In Process Unspecified. EDMS 12:13 CT Head Angio In Process Unspecified. EDMS 12:13 CT Neck Angio In Process Unspecified. EDMS 13:47 No provider procedures requiring assistance completed. IV discontinued, intact, eh3 bleeding controlled, No redness/swelling at site. Pressure dressing applied. Administered Medications: 10:48 Drug: Meclizine PO 25 mg PO once Route: PO; eh3 12:00 Follow up: Response: No adverse reaction 3 11:05 Drug: hydrALAZINE IVP 10 mg IVP once Route: IVP; Site: right forearm; eh3 11:40 Follow up: Response: No adverse reaction; Blood pressure is unchanged eh3 11:40 Drug: hydrALAZINE IVP 10 mg IVP once Route: IVP; Site: right forearm; eh3 12:30 Follow up: Response: No adverse reaction; Blood pressure is unchanged eh3 12:39 Drug: cloNIDine PO 0.1 mg PO once Route: PO; 3 13:42 Follow up: Response: No adverse reaction; Blood pressure is lowered eh3 Medication: 13:47 VIS not applicable for this client. 3 Outcome: 13:14 Discharge ordered by 7 13:47 Discharged to home ambulatory, with family, 3 13:47 Condition: stable 13:47 Discharge instructions given to patient, family, Instructed on discharge instructions, follow up and referral plans. medication usage, Demonstrated understanding of instructions, follow-up care, medications, Prescriptions given X 2, 13:47 Patient left the ED. 3 NIH Stroke Scale - NIH Stroke Score Date: 01/06/2023 Time: 09:42 Total Score = 0 10. Dysarthria (speech clarity - read or repeat words) - 0(Normal) 11. Extinction and Inattention (visual/tactile/auditory/spatial/personal) - 0(No abnormality) 1a. Level of Consciousness (LOC) - 0(Alert) 1b. Level of Consciousness (LOC) (Month \T\ Age) - 0(Both) 1c. LOC Commands (Open \T\ Closes Eyes/M[employer]) - 0(Both) 2. Best Gaze (Lateral Gaze Paresis) - 0(Normal) 3. Visual Field Loss - 0(No visual loss) 4. Facial Palsy - 0(Normal) 5a. Left Arm: Motor (10-second hold) - 0(No drift) 5b. Right Arm: Motor (10-second hold) - 0(No drift) 6a. Left Leg: Motor (5-second hold - always test supine) - 0(No drift) 6b. Right Leg: Motor (5-second hold - always test supine) - 0(No drift) 7. Limb Ataxia (finger/nose \T\ heel/hein - test with eyes open) - 0(Absent) 8. Sensory Loss (pinprick arms/legs/face) - 0(Normal) 9. Best Language: Aphasia (description/naming/reading) - 0(No aphasia) Initials: jh7 Signatures: Dispatcher [employer] Arya Vega RN RN ll1 Fozia Robin RN RN eh3 Edita Quintana, LEAD CASE MANAGER LEAD CASE MANAGER jh7 Maggie Ernandez RN RN [id number] Christie Murphy Corrections: (The following items were deleted from the chart) 13:46 13:28 BP 164 / 88; Pulse 84bpm; Resp 16bpm; Spontaneous; Pulse Ox 96% RA; kc6 eh3
[2023-01-06 13:57] VITALS: TEMP 98.4
[2023-01-06 14:23] VITALS: BP 163/81; O2SAT 96
== END 2023-01-06 13:47 | disposition home or self-care (01) ==
LOC: ER 09:33
DX: R42 Dizziness and giddiness (principal); I10 Essential (primary) hypertension; J44.9 Chronic obstructive pulmonary disease, unspecified; I25.2 Old myocardial infarction
CPT/HCPCS: 93005; 85025; 80048; 36415; 83735; 85610; 80076; 84484; 83880; 70450; 70496; 70498; 71045; 96374; 99284; Q9967; J8597; J0360 ×2